=== PATIENT | female | born 2000 | race Caucasian/White ===

== ENCOUNTER 2020-11-21 19:04 | Emergency (ER) | payer OTHER, SELFPAY ==
[2020-11-21 19:14] VITALS: BP 119/74; PULSE 89; RESP 16; TEMP 36.9; O2SAT 99
--- NOTE | 2020-11-21 19:59 | ED.GENADULT ---
HPI - General Adult General Chief complaint: Nausea/Vomiting/Diarrhea Stated complaint: abd pain/diarrhea Time Seen by Provider: 11/21/20 19:59 Source: patient and RN notes reviewed Mode of arrival: ambulatory Limitations: no limitations History of Present Illness HPI narrative: 20-year-old female presents with complaints of body aches, fatigue, diarrhea, decreased appetite, intermittent abdominal pain and nausea for the past 14 days. ?Idania reports diarrhea episodes lasting longer today. No treatment. ?Idania reports she is currently being treated for Swamp ass, has 2 days left on Flagyl and Penicillin. ?Nausea and diarrhea without vomiting. ?Exacerbating factors consist of eating and drinking. ?LBM here at [facility] while waiting on evaluation without blood. ?Denies fever or chills. ?Denies headache, dizziness, back pain, dysuria, and blood in stool. ?Tolerating po intake well. ?LMP 11/19/2020. ?Remains active. ?The patient reports she has not been diagnosed with COVID-19. ?The patient reports she is not waiting for the results of a COVID-19 lab test. ?The patient reports she does not have a new or worsening cough or shortness of breath. ?The patient reports she does not have any rhinorrhea, congestion, loss of taste, and sore throat. ?Denies recent traveling. ?Denies concerns for COVID-19 or exposures. ?At this time, the patient is not suspected of having COVID-19. Some parts of this dictation were generated by voice recognition software and may contain typographical and/or grammatical inaccuracies. Related Data Home Medications Medication Instructions Recorded Confirmed escitalopram oxalate 10 mg PO DAILY 11/21/20 11/21/20 metronidazole 500 mg PO BID 11/21/20 11/21/20 penicillin V potassium 500 mg PO DAILY 11/21/20 11/21/20 Allergies Allergy/AdvReac Type Severity Reaction Status Date / Time No Known Allergies Allergy Unverified 01/13/17 14:34 Review of Systems Review of Systems: Narrative: CONSTITUTIONAL: Denies fever, chills, sweats. EYES: Denies visual changes, redness, discharge. ENT: Denies rhinorrhea, congestion, sore throat, otalgia. CARDIOVASCULAR: Denies chest pain, palpitations, edema. RESPIRATORY: Denies dyspnea, wheezing, cough. GASTROINTESTINAL: Denies vomiting. Complaints of diarrhea, nausea, and decreased appetite, intermittent abdominal pain. GENITOURINARY: Denies dysuria, hematuria, abnormal discharge. SKIN: Denies rash or itching. MUSCULOSKELETAL: Denies acute back pain, joint pain, or myalgia. NEUROLOGIC: Denies numbness or focal weakness. PSYCHIATRIC: Denies anxiety or depression. All systems reviewed & are unremarkable except as noted in HPI and below. [facility] Past Medical History Medical History (Updated 11/22/20 @ 00:01 by Leatha Baron) Anxiety Depression Obesity Surgical History Surgical History (Updated 11/21/20 @ 20:15 by HYACINTH Reynolds) No significant past surgical history Family History Family History (Updated 11/21/20 @ 20:15 by HYACINTH Reynolds) Father Cerebrovascular accident Mother , Motorcycle accident Unknown family medical history Social History Social History (Updated 11/21/20 @ 20:16 by HYACINTH Reynolds) Smoking status: Current every day smoker Tobacco type: e-cigarettes/vaping Second hand tobacco smoke exposure: Yes (significant other) Alcohol intake: current Substance use: current Substance use type: marijuana Living arrangements: with family Occupation/Education: occupation Gender identity (if verbalized by the patient): Female Sexual Orientation (if Verbalized by the Patient): Straight or Heterosexual Comments At time of signature, I have reviewed and agree with the nursing past medical, surgical, social, and family history. Please see the nursing chart for further information. There is no relevant family history pertinent to the presenting complaint. Exam Narrative: Exam Narrat
== END 2020-11-21 20:25 | disposition home or self-care (01) ==
PROVIDERS: Emergency Provider Nurse Practitioner Family
DX: R19.7 Diarrhea, unspecified (principal); R11.2 Nausea with vomiting, unspecified; T50.905A Adverse effect of unspecified drugs, medicaments and biological substances, initial encounter; F41.9 Anxiety disorder, unspecified; F32.9 Major depressive disorder, single episode, unspecified; E66.9 Obesity, unspecified; Z68.36 Body mass index [BMI] 36.0-36.9, adult
CPT/HCPCS: 81003; 99213; G0463

== ENCOUNTER 2021-09-20 16:57 | Emergency (ER) | payer OTHER, SELFPAY ==
--- NOTE | ~2021-09-20 | US_ITS ---
EXAMINATION: US OB <=14 wk fetus w TV DATE: 09/20/2021 21:03 INDICATION: Right-sided abdominal pain in . TECHNIQUE: Real-time transabdominal and transvaginal pelvic ultrasound was performed. COMPARISON: None. FINDINGS: TRANSABDOMINAL ULTRASOUND: The uterus measures 6.0 x 3.2 x 4.8 cm. TRANSVAGINAL ULTRASOUND: There is a cyst in the endometrial complex with mean diameter of 6 mm which may be a gestational sac with estimated gestational age of 5 weeks and 2 days +/- 3 days. No yolk sac or pole is identified. The right ovary measures 2.2 x 1.4 x 2.0 cm. The left ovary measures 2. 4 x 1.8 x 2.3 cm. There is no free fluid in the pelvis. IMPRESSION: 1. Cyst in the endometrial complex that may be a gestational sac with estimated date of delivery of 05/21/2022. Spontaneous and ectopic are not excluded. Serial beta hCGs are recommen ded. Reviewed, dictated and finalized at location A. IMPRESSION: 1. Cyst in the endometrial complex that may be a gestational sac with estimate d date of delivery of 05/21/2022. Spontaneous and ectopic are not excluded. Serial beta hCGs are recommended.
[2021-09-20 16:59] VITALS: BP 135/95; PULSE 105; RESP 18; TEMP 36.5; O2SAT 100
[2021-09-20 19:12] LABS: Basophils Absolute Auto 0.1 K/mm3 (0.0-0.1); Basophils Percent Auto 0.4 % (0.2-1.2); Eosinophils Absolute Auto 0.1 K/mm3 (0-0.3); Eosinophils Percent Auto 0.5 % (0-4.4); Hematocrit 44.8 % (37.0-47.0); Hemoglobin 14.9 g/dL (12.0-15.0); Immature Granulocyte Absolute 0.06 K/mm3 (0.00-0.031); Immature Granulocyte Percent A 0.4 % (0-0.5); Lymphocytes Absolute Auto 3.07 K/mm3 (0.9-3.2); Lymphocytes Percent Auto 22.4 % (18.3-44.2); Mean Corpuscular HGB Conc 33.3 g/dl (32-36); Mean Corpuscular Hemoglobin 31.2 pg (26-34); Mean Corpuscular Volume 93.9 fl (80-100); Monocytes Absolute Auto 0.9 K/mm3 (0.1-0.6); Monocytes Percent Auto 6.3 % (2.6-8.5); Neutrophils Absolute Auto 9.6 K/mm3 (1.3-6.7); Platelet Count Result 243 k/mm3 (150-375); Red Blood Count 4.77 M/mm3 (4.2-5.4); Red Cell Distribution Width 14.2 % (11.5-14.5); White Blood Count 13.7 K/mm3 (4.5-10.0)
[2021-09-20 19:13] LABS: Appearance Urine Clear (Clear); Bilirubin Urine Negative (Negative); Blood Urine Negative (Negative); Color Urine Yellow (Yellow); Glucose Urine UA Negative (Negative); Ketones Urine 1+ mg/dL (Negative); Leukocyte Esterase Ur Negative LEU/UL (Negative); Nitrate Urine Positive (Negative); Protein Urine Negative (Negative); Specific Grav Ur >= 1.030 (1.001-1.035); Urobilinogen Urine 0.2 mg/dL (<2.0); pH Urine 5.5 (5.0-9.0)
[2021-09-20 19:20] LABS: Bacteria Urine Trace /hpf; Mucus Urine Moderate /lpf; Squamous Epithelial Cell Urine Moderate /hpf (Few)
[2021-09-20 19:22] LABS: Alanine Aminotransferase 24 U/L (6-35); Albumin Level 4.6 g/dL (3.5-5.1); Alkaline Phosphatase 59 U/L (38-126); Anion Gap 7 mmol/L (8-16); Aspartate Amino Transferase 25 U/L (14-36); Bilirubin,Total 0.5 mg/dL (0.2-1.3); Blood Urea Nitrogen 11 mg/dL (7-17); Carbon Dioxide 25 mmol/L (22-30); Chloride 103 mmol/L (98-107); Estimated CRCL calculation 95 ml/min; Estimated Glomerular Filt Rate > 60; Glucose 81 mg/dL (65-110); Potassium 3.7 mmol/L (3.4-5.0); Sodium 135 mmol/L (137-145)
[2021-09-20 19:23] LABS: Add Urine Microscopic? YES
[2021-09-20] MEDS: LACTATED RINGERS 1,000 ML 999 ML IV CONT ×2 (19:30→19:31)
[2021-09-20] MEDS: ONDANSETRON INJ 4 MG/2 ML VIAL IV PUSH (19:31)
--- NOTE | 2021-09-20 19:36 | ED.NAVMDI ---
HPI - Nausea/Vomiting/Diarrhea General Chief complaint: Nausea/Vomiting/Diarrhea Stated complaint: N/V 10 WEEKS Time Seen by Provider: 09/20/21 18:27 Source: patient Mode of arrival: ambulatory History of Present Illness HPI Narrative: 21 year old female presents today with complaints of increased nausea over the last few days. Today she states she has not been able to keep anything down. She is 10 weeks and has not had an appointment with OB or an US to verify IUP. Patient has had some right sided abdominal cramping intermittently for the last week but denies vaginal bleeding. Related Data Home Medications Medication Instructions Recorded Confirmed escitalopram oxalate 10 mg PO DAILY 11/21/20 11/21/20 metronidazole 500 mg PO BID 11/21/20 11/21/20 penicillin V potassium 500 mg PO DAILY 11/21/20 11/21/20 Allergies Allergy/AdvReac Type Severity Reaction Status Date / Time No Known Allergies Allergy Unverified 01/13/17 14:34 Review of Systems Review of Systems: CONSTITUTIONAL: Denies fever, chills, or sweats. EYES: Denies visual changes, redness, or discharge. ENT: Denies rhinorrhea, congestion, sore throat, or otalgia. CARDIOVASCULAR: Denies chest pain, palpitations, or edema. RESPIRATORY: Denies cough or dyspnea. GASTROINTESTINAL: Nausea, vomiting, and intermittent right sided pelvic pain. Denies diarrhea. GENITOURINARY: Denies dysuria or hematuria. SKIN: Denies rash or itching. MUSCULOSKELETAL: Denies back pain, joint pain, or myalgia. NEUROLOGIC: Denies headache, numbness, dizziness, or weakness. PSYCHIATRIC: Denies anxiety or depression. [facility] Past Medical History Medical History (Updated 09/20/21 @ 22:34 by Christina Kelly APRN) Anxiety Depression Obesity Surgical History Surgical History (Updated 11/21/20 @ 20:15 by HYACINTH Reynolds) No significant past surgical history Family History Family History (Updated 11/21/20 @ 20:15 by HYACINTH Reynolds) Father Cerebrovascular accident Mother , Motorcycle accident Unknown family medical history Social History Social History (Updated 11/21/20 @ 20:16 by HYACINTH Reynolds) Smoking status: Current every day smoker Tobacco type: e-cigarettes/vaping Second hand tobacco smoke exposure: Yes (significant other) Alcohol intake: current Substance use: current Substance use type: marijuana Gender identity (if verbalized by the patient): Female Sexual Orientation (if Verbalized by the Patient): Straight or Heterosexual Exam Narrative: GENERAL: Well-appearing, well-nourished, and in no acute distress. HEAD: Normocephalic, atraumatic. EYES: PERRLA and EOMI. ENT: Nares clear, no rhinorrhea or epistaxis. Mucous membranes moist. Oropharynx without tonsillar hypertrophy exudate or other lesions. Bilateral TMs pearly nash nonbulging NECK: Supple. No adenopathy or masses. No carotid bruits or JVD CHEST: Clear to auscultation. No respiratory distress. No wheezes rales or rhonchi HEART: Regular rate and rhythm. No murmur heard. Normal peripheral pulses. ABDOMEN: Soft, nontender, nondistended, normal active bowel sounds. EXTREMITIES: Normal range of motion. No edema. SKIN: Warm, dry, no rash. NEURO: No focal deficits. Alert and oriented x3. PSYCH: Normal mood and affect. Course Reevaluation(s) Reevaluation #1: Patient without nausea and feeling much better. Lab results reviewed with patient aware ultrasound ordered. Date: 09/20/21 Time: 20:20 Vital Signs Vital signs: Vital Signs Temperature 36.5 C 09/20/21 16:59 Pulse Rate 105 H 09/20/21 16:59 Respiratory Rate 18 09/20/21 16:59 Blood Pressure 135/95 H 09/20/21 16:59 Pulse Oximetry 100 09/20/21 16:59 Temperature 36.5 C 09/20/21 16:59 Pulse Rate 105 H 09/20/21 16:59 Respiratory Rate 18 09/20/21 16:59 Blood Pressure 135/95 H 09/20/21 16:59 Pulse Oximetry 100 09/20/21 16:59 MDM - Nausea/Vom
[2021-09-20 23:29] VITALS: BP 125/67; PULSE 87; RESP 18; O2SAT 99
== END 2021-09-20 23:34 | disposition home or self-care (01) ==
PROVIDERS: Emergency Provider Nurse Practitioner Family
DX: O21.9 Vomiting of pregnancy, unspecified (principal); O23.91 Unspecified genitourinary tract infection in pregnancy, first trimester; O99.341 Other mental disorders complicating pregnancy, first trimester; F41.9 Anxiety disorder, unspecified; F32.A Depression, unspecified; O99.211 Obesity complicating pregnancy, first trimester; E66.9 Obesity, unspecified; O99.331 Smoking (tobacco) complicating pregnancy, first trimester; F17.290 Nicotine dependence, other tobacco product, uncomplicated; Z3A.01 Less than 8 weeks gestation of pregnancy
CPT/HCPCS: 36415; 76801; 76817; 80053; 81001; 84702; 85025; 86900; 86901; 96361; 96374; 99284; J2405; J7120

== ENCOUNTER 2021-09-23 08:04 | Outpatient (CLI) | payer OTHER, SELFPAY | END 2021-09-23 08:05 | disposition home or self-care (01) | LOC: ANHLAB 08:07 | PROVIDERS: Visit Provider Nurse Practitioner Family | DX: O20.0 Threatened abortion (principal) | CPT/HCPCS: 36415; 84702 ==

== ENCOUNTER 2021-11-15 08:53 | Emergency (ER) | payer OTHER, SELFPAY ==
--- NOTE | ~2021-11-15 | US_ITS ---
EXAMINATION: US OB <= 14 weeks fetus DATE: 11/15/2021 10:21 INDICATION: Vomiting and abdominal pain during first trimester TECHNIQUE: Real-time pelvic transabdominal ultrasound was performed. COMPARISON: 09/20/2021 FINDINGS: The uterus measures 12.5 x 8.0 x 7.3 cm. There is an intrauterine gestational sac. h eart motion is identified measuring 157 beats per minute (bpm) by M-mode Doppler. The crown rum p length measures 7.1 cm , which correlates with an estimated gestational age of 13 weeks and 2 day(s ) (+/-) 8 day(s). The right ovary measures 2.4 x 1.8 x 0.9 cm. The left ovary measures 2.9 x 1.7 x 1.5 cm. There is nor mal vascular flow in the ovaries. There is no free fluid in the pelvis. IMPRESSION: 1. Live intrauterine with an estimated gestational age of 13 weeks and 2 day(s) (+/-) 8 day (s) and an estimated delivery date of 05/21/2022. Reviewed, dictated and finalized at location B. IMPRESSION: 1. Live intrauterine with an estimated gestational age of 13 weeks an d 2 day(s) (+/-) 8 day(s) and an estimated delivery date of 05/21/2022.
[2021-11-15 09:06] VITALS: BP 122/67; PULSE 94; RESP 14; TEMP 36.9; O2SAT 97
[2021-11-15 09:23] LABS: Basophils Absolute Auto 0.1 K/mm3 (0.0-0.1); Basophils Percent Auto 0.3 % (0.2-1.2); Eosinophils Percent Auto 0.3 % (0-4.4); Hematocrit 39.1 % (37.0-47.0); Hemoglobin 14.1 g/dL (12.0-15.0); Immature Granulocyte Absolute 0.07 K/mm3 (0.00-0.031); Immature Granulocyte Percent A 0.5 % (0-0.5); Lymphocytes Absolute Auto 2.56 K/mm3 (0.9-3.2); Lymphocytes Percent Auto 17.7 % (18.3-44.2); Mean Corpuscular HGB Conc 36.1 g/dl (32-36); Mean Corpuscular Volume 88.9 fl (80-100); Mean Platelet Volume 10.3 fl (7.4-10.4); Monocytes Absolute Auto 0.6 K/mm3 (0.1-0.6); Monocytes Percent Auto 4.3 % (2.6-8.5); Neutrophils Absolute Auto 11.1 K/mm3 (1.3-6.7); Neutrophils Percent Auto 76.9 % (45.5-73.1); Platelet Count Result 212 k/mm3 (150-375); Red Cell Distribution Width 13.4 % (11.5-14.5); White Blood Count 14.5 K/mm3 (4.5-10.0)
[2021-11-15 09:28] LABS: Appearance Urine Slightly Cloudy (Clear); Bilirubin Urine Negative (Negative); Blood Urine Negative (Negative); Color Urine Yellow (Yellow); Glucose Urine UA Negative (Negative); Ketones Urine 2+ mg/dL (Negative); Leukocyte Esterase Ur Trace LEU/UL (Negative); Nitrate Urine Negative (Negative); Protein Urine Negative (Negative); Urobilinogen Urine 0.2 mg/dL (<2.0); pH Urine 6.5 (5.0-9.0)
[2021-11-15 09:35] LABS: Bacteria Urine Trace /hpf; Mucus Urine Rare /lpf; Squamous Epithelial Cell Urine Many /hpf (Few); WBC Urine 16-20 /hpf
[2021-11-15 09:37] LABS: Alanine Aminotransferase 13 U/L (6-35); Albumin Level 3.9 g/dL (3.5-5.1); Alkaline Phosphatase 60 U/L (38-126); Anion Gap 7 mmol/L (8-16); Aspartate Amino Transferase 23 U/L (14-36); Bilirubin,Total 0.3 mg/dL (0.2-1.3); Blood Urea Nitrogen 7 mg/dL (7-17); Calcium 8.9 mg/dL (8.4-10.2); Carbon Dioxide 22 mmol/L (22-30); Chloride 105 mmol/L (98-107); Estimated CRCL calculation 129 ml/min; Estimated Glomerular Filt Rate > 60; Glucose 85 mg/dL (65-110); Lipase 25 U/L (23-300); Potassium 3.8 mmol/L (3.4-5.0); Sodium 134 mmol/L (137-145)
[2021-11-15 09:38] LABS: Add Urine Microscopic? YES
[2021-11-15] MEDS: SODIUM CHLORIDE 0.9% IV 1,000 ML 999 ML IV CONT (09:59)
--- NOTE | 2021-11-15 10:05 | ED.NAVMDI ---
HPI - Nausea/Vomiting/Diarrhea General Chief complaint: Nausea/Vomiting/Diarrhea <Marisel Mosley PA-C - Last Filed: 11/15/21 12:04> Stated complaint: 12 weeks /vomiting <WENDI Quezada Last Filed: 11/15/21 12:04> Time Seen by Provider: 11/15/21 09:11 <WENDI Quezada Last Filed: 11/15/21 12:04> Source: patient <WENDI Quezada Last Filed: 11/15/21 12:04> Mode of arrival: ambulatory <WENDI Quezada Last Filed: 11/15/21 12:04> Limitations: no limitations <WENDI Quezada Last Filed: 11/15/21 12:04> History of Present Illness HPI Narrative: This is a 21 year old , about 13 weeks that presents to the emergency department for nausea and vomiting. Reports she has been having a lot of trouble with nausea and vomiting this . It has worsened over the last couple of days. She has intermittently been having some sharp pain in the right lower quadrant that last very briefly. Denies fever, dysuria, hematuria, or vaginal bleeding. <WENDI Quezada Last Filed: 11/15/21 12:04> Related Data Home medications: Home Medications Medication Instructions Recorded Confirmed escitalopram oxalate 10 mg tablet 10 mg PO DAILY 11/21/20 11/21/20 metronidazole 500 mg tablet 500 mg PO BID 11/21/20 11/21/20 penicillin V potassium 500 mg 500 mg PO DAILY 11/21/20 11/21/20 tablet <WENDI Quezada Last Filed: 11/15/21 12:04> Allergies/Adverse reactions: Allergies Allergy/AdvReac Type Severity Reaction Status Date / Time No Known Allergies Allergy Verified 11/15/21 09:09 <WENDI Quezada Last Filed: 11/15/21 12:04> Review of Systems Review of Systems: CONSTITUTIONAL: Denies fever GASTROINTESTINAL: Reports abdominal pain, nausea, vomiting. Denies diarrhea. GENITOURINARY: Denies dysuria or hematuria. <Marisel Mosley PA-C - Last Filed: 11/15/21 12:04> All systems reviewed & are unremarkable except as noted in HPI and below <Marisel Mosley PA-C - Last Filed: 11/15/21 12:04> PMFSH Past Medical History Medical History: Medical History (Updated 11/15/21 @ 12:01 by Marisel Mosley PA-C) Anxiety Depression Obesity <Marisel Mosley PA-C - Last Filed: 11/15/21 12:04> Surgical History Surgical History: Surgical History (Updated 11/21/20 @ 20:15 by HYACINTH Reynolds) No significant past surgical history <Marisel Mosley PA-C - Last Filed: 11/15/21 12:04> Family History Family History: Family History (Updated 11/21/20 @ 20:15 by HYACINTH Reynolds) Father Cerebrovascular accident Mother , Motorcycle accident Unknown family medical history <Marisel Mosley PA-C - Last Filed: 11/15/21 12:04> Social History Social History: Social History (Updated 11/15/21 @ 10:05 by Marisel Mosley PA-C) Smoking status: Former smoker Alcohol intake: former Substance use: former Gender identity (if verbalized by the patient): Female Sexual Orientation (if Verbalized by the Patient): Straight or Heterosexual <Marisel Mosley PA-C - Last Filed: 11/15/21 12:04> Exam Narrative: GENERAL: Well-appearing, well-nourished, and in no acute distress. HEAD: Normocephalic, atraumatic. EYES: EOMI. CHEST: Clear to auscultation. No respiratory distress. No wheezes rales or rhonchi HEART: Regular rate and rhythm. No murmur heard. Normal peripheral pulses. ABDOMEN: Soft, nontender, nondistended, normal active bowel sounds. EXTREMITIES: Normal range of motion. No edema. SKIN: Warm, dry, no rash. NEURO: No focal deficits. Alert and oriented x3. PSYCH: Normal mood and affect <Marisel Mosley PA-C - Last Filed: 11/15/21 12:04> Course MOBILE APPLICATION TESTER/PA Physician Supervision For this encounter, I have reviewed the THOMAS documentation, treatment plan and medical decision making: I was available for consultation as needed. [] <Tyrell Leger DO -
[2021-11-15] MEDS: ONDANSETRON INJ 4 MG/2 ML VIAL IV PUSH (10:11)
[2021-11-15 10:47] LABS: Pregnancy On Board Control Positive; Urine Pregnancy Test Positive
== END 2021-11-15 12:00 | disposition home or self-care (01) ==
PROVIDERS: Physician Assistant; Emergency Provider Emergency Medicine
DX: O21.9 Vomiting of pregnancy, unspecified (principal); O99.341 Other mental disorders complicating pregnancy, first trimester; F41.9 Anxiety disorder, unspecified; F32.A Depression, unspecified; O99.211 Obesity complicating pregnancy, first trimester; E66.9 Obesity, unspecified; Z3A.13 13 weeks gestation of pregnancy; Z87.891 Personal history of nicotine dependence
CPT/HCPCS: 36415; 76801; 80053; 81001; 81025; 83690; 84702; 85025; 87077; 87086; 87088; 87186; 96361; 96365; 96375; 99284; J0131; J2405; J7030

== ENCOUNTER 2022-01-12 19:05 | Emergency (ER) | payer OTHER, SELFPAY ==
[2022-01-12 19:08] VITALS: BP 112/72; PULSE 89; RESP 16; TEMP 36.4; O2SAT 100
[2022-01-12] MEDS: ONDANSETRON INJ 4 MG/2 ML VIAL IV PUSH (19:36)
[2022-01-12] MEDS: SODIUM CHLORIDE 0.9% IV 1,000 ML 999 ML IV CONT (19:36)
[2022-01-12 19:40] LABS: Hematocrit 42.2 % (37.0-47.0); Hemoglobin 13.4 g/dL (12.0-15.0); Mean Corpuscular HGB Conc 31.8 g/dl (32-36); Mean Corpuscular Hemoglobin 32.1 pg (26-34); Mean Platelet Volume 10.5 fl (7.4-10.4); Platelet Count Result 191 k/mm3 (150-375); Red Blood Count 4.18 M/mm3 (4.2-5.4); Red Cell Distribution Width 14.1 % (11.5-14.5); White Blood Count 22.4 K/mm3 (4.5-10.0)
--- NOTE | 2022-01-12 19:44 | ED.NAVMDI ---
HPI - Nausea/Vomiting/Diarrhea General Chief complaint: Nausea/Vomiting/Diarrhea Stated complaint: anxiety/vomiting, 21 weeks preg Time Seen by Provider: 01/12/22 19:19 History of Present Illness HPI Narrative: 21-year-old female who is 21 weeks presents the emergency room complaints of nausea and vomiting for the last 3 hours. Patient states that she was unable to take her Zofran due to throwing it up. Denies abdominal pain. Denies fever. Denies any diarrhea or constipation. Related Data Home Medications Medication Instructions Recorded Confirmed escitalopram oxalate 10 mg tablet 10 mg PO DAILY 11/21/20 11/21/20 metronidazole 500 mg tablet 500 mg PO BID 11/21/20 11/21/20 penicillin V potassium 500 mg 500 mg PO DAILY 11/21/20 11/21/20 tablet Allergies Allergy/AdvReac Type Severity Reaction Status Date / Time No Known Allergies Allergy Verified 01/12/22 19:13 Review of Systems Review of Systems: CONSTITUTIONAL: Denies fever, chills, or sweats. EYES: Denies visual changes, redness, or discharge. ENT: Denies rhinorrhea, congestion, sore throat, or otalgia. CARDIOVASCULAR: Denies chest pain, palpitations, or edema. RESPIRATORY: Denies cough or dyspnea. GASTROINTESTINAL: Reports nausea and vomiting GENITOURINARY: Denies dysuria or hematuria. SKIN: Denies rash or itching. MUSCULOSKELETAL: Denies back pain, joint pain, or myalgia. NEUROLOGIC: Denies headache, numbness, dizziness, or weakness. PSYCHIATRIC: Denies anxiety or depression. [facility] Past Medical History Medical History Anxiety Depression Obesity Surgical History Surgical History No significant past surgical history Family History Family History Father Cerebrovascular accident Mother , Motorcycle accident Unknown family medical history Social History Social History Smoking status: Former smoker Alcohol intake: former Substance use: former Gender identity (if verbalized by the patient): Female Sexual Orientation (if Verbalized by the Patient): Straight or Heterosexual Exam Narrative: GENERAL: Well-appearing, well-nourished, no physical limitations, and in no acute distress. HEAD: Normocephalic, atraumatic. EYES: Conjunctivae normal, PERRLA and EOMI. CHEST: Clear to auscultation. No respiratory distress. No wheezes rales or rhonchi. No tenderness. HEART: Regular rate and rhythm. No murmur heard. Normal peripheral pulses. ABDOMEN: Soft, nontender, nondistended, normal active bowel sounds. EXTREMITIES: Normal range of motion. No edema. No clubbing or cyanosis SKIN: Warm, dry, no rash. No noted wounds NEURO: No focal deficits. Alert and oriented x3. MAEW. CN's II-XI intact bilaterally, normal gait PSYCH: Cooperative. Normal mood and affect. Course Vital Signs Vital signs: Vital Signs Temperature 36.4 C 01/12/22 19:08 Pulse Rate 89 01/12/22 19:08 Respiratory Rate 16 01/12/22 19:08 Blood Pressure 112/72 01/12/22 19:08 Pulse Oximetry 100 01/12/22 19:08 Oxygen Delivery Room Air 01/12/22 19:08 Temperature 36.4 C 01/12/22 19:08 Pulse Rate 90 01/12/22 21:25 Respiratory Rate 17 01/12/22 21:25 Blood Pressure 115/73 01/12/22 21:25 Pulse Oximetry 97 01/12/22 21:25 Oxygen Delivery Room Air 01/12/22 19:08 MDM - Nausea/Vomiting/Diarrhea Lab Data Result diagrams: 01/12/22 19:35 01/12/22 19:35 Labs: Lab Results 01/12/22 01/12/22 01/12/22 Range/Units 19:35 19:35 20:33 WBC 22.4 H (4.5-10.0) K/mm3 RBC 4.18 L (4.2-5.4) M/mm3 Hgb 13.4 (12.0-15.0) g/dL Hct 42.2 (37.0-47.0) % MCV 101.0 H (80-100) fl MCH 32.1 (26-34) pg MCHC 31.8 L (32-36) g/dl RDW 14.1 (11.5-14.5) % P
[2022-01-12 19:58] LABS: Alanine Aminotransferase 13 U/L (6-35); Albumin Level 3.9 g/dL (3.5-5.1); Alkaline Phosphatase 70 U/L (38-126); Anion Gap 11 mmol/L (8-16); Aspartate Amino Transferase 27 U/L (14-36); Bilirubin,Total 0.6 mg/dL (0.2-1.3); Blood Urea Nitrogen 5 mg/dL (7-17); Calcium 9.2 mg/dL (8.4-10.2); Carbon Dioxide 16 mmol/L (22-30); Chloride 107 mmol/L (98-107); Estimated CRCL calculation 147 ml/min; Estimated Glomerular Filt Rate > 60; Glucose 89 mg/dL (65-110); Lipase 33 U/L (23-300); Potassium 4.8 mmol/L (3.4-5.0); Sodium 134 mmol/L (137-145)
[2022-01-12 20:02] LABS: Band Neutrophils Percent 1 % (0-6); Lymphocytes Absolute Manual 3.13 K/mm3 (1.1-4.5); Monocytes Absolute Manual 0.67 K/mm3 (0.1-0.90); Monocytes Percent Manual 3 % (3-9); Neutrophils Absolute Manual 18.59 K/mm3 (1.7-7.2); Neutrophils Percent Manual 82 % (46-73); Platelet Estimate Adequate (Adequate); Total Cells Counted 100
[2022-01-12 20:40] LABS: Appearance Urine Clear (Clear); Bilirubin Urine 1+ (Negative); Blood Urine Negative (Negative); Color Urine Yellow (Yellow); Glucose Urine UA Negative (Negative); Ketones Urine 4+ mg/dL (Negative); Leukocyte Esterase Ur Negative LEU/UL (Negative); Nitrate Urine Negative (Negative); Protein Urine Trace mg/dL (Negative); Specific Grav Ur >= 1.030 (1.001-1.035); Urobilinogen Urine 0.2 mg/dL (<2.0); pH Urine 5.5 (5.0-9.0)
[2022-01-12 20:59] LABS: Add Urine Microscopic? YES; RBC Urine 0-2 /hpf (0-2)
[2022-01-12 21:00] LABS: Squamous Epithelial Cell Urine Moderate /hpf (Few); WBC Urine 16-20 /hpf
[2022-01-12] MEDS: ACETAMINOPHEN 500 MG TABLET 1000 MG PO (21:23)
[2022-01-12 21:25] VITALS: BP 115/73; PULSE 90; RESP 17; O2SAT 97
== END 2022-01-12 21:58 | disposition home or self-care (01) ==
PROVIDERS: Emergency Provider Nurse Practitioner Family; PCP Advanced Practice Midwife
DX: O21.0 Mild hyperemesis gravidarum (principal); Z3A.21 21 weeks gestation of pregnancy
CPT/HCPCS: 36415; 80053; 81001; 83690; 85025; 87086; 87088; 96361; 96374; 99284; A9270; J2405; J7030

== ENCOUNTER 2022-01-29 17:38 | Emergency (ER) | payer OTHER, SELFPAY ==
--- NOTE | ~2022-01-29 | XR_ITS ---
EXAMINATION: XR chest 1V Exam Date/Time: 01/29/2022 18:20 CDT HISTORY: cp, productive cough Comparison: None available. RESULT: Lines, tubes, and devices: None. Lungs and pleura: Clear. Cardiomediastinal silhouette: Normal. Other: No acute osseous or upper abdominal finding. IMPRESSION: No acute cardiopulmonary process. Reviewed, dictated and finalized at location K.
[2022-01-29 17:40] VITALS: BP 115/78; PULSE 106; RESP 16; TEMP 36.4; O2SAT 100
--- NOTE | 2022-01-29 18:06 | ECG_ITS ---
Measurements Intervals [place] Rate: 90 P: 24 [place]: 134 QRS: 38 QRSD: 81 T: 19 QT: 339 QTc: 415 Interpretive Statements SINUS RHYTHM WITH SINUS ARRHYTHMIA NORMAL ECG NO PREVIOUS ECG AVAILABLE FOR COMPARISON Electronically Signed On 01-29-2022 20:18:17 CDT by Guero Perez D.O.
--- NOTE | 2022-01-29 18:07 | ED.URI ---
HPI - URI/Sore Throat General Chief Complaint: Upper Respiratory Infection Stated Complaint: URI Time Seen by Provider: 01/29/22 17:44 Source: patient Mode of arrival: ambulatory Limitations: no limitations History of Present Illness HPI Narrative: This is a 21-year-old , about 23 weeks , that presents to the emergency department for cold symptoms present over the last couple of days. Reports cough, congestion, and sore throat. Reports she has chest pain while coughing. She is seen at urgent care and sent here for further evaluation. She had a negative strep and COVID swab at that time. Denies fever or shortness of breath. Related Data Home Medications Medication Instructions Recorded Confirmed escitalopram oxalate 10 mg tablet 10 mg PO DAILY 11/21/20 11/21/20 metronidazole 500 mg tablet 500 mg PO BID 11/21/20 11/21/20 penicillin V potassium 500 mg 500 mg PO DAILY 11/21/20 11/21/20 tablet Allergies Allergy/AdvReac Type Severity Reaction Status Date / Time No Known Allergies Allergy Verified 01/12/22 19:13 Review of Systems Review of Systems: CONSTITUTIONAL: Denies fever CARDIOVASCULAR: Reports chest pain. Denies edema. RESPIRATORY: Reports cough. Denies dyspnea. All systems reviewed & are unremarkable except as noted in HPI and below PMFSH Past Medical History Medical History Anxiety Depression Obesity Surgical History Surgical History No significant past surgical history Family History Family History Father Cerebrovascular accident Mother , Motorcycle accident Unknown family medical history Social History Social History Smoking status: Former smoker Alcohol intake: former Substance use: former Gender identity (if verbalized by the patient): Female Sexual Orientation (if Verbalized by the Patient): Straight or Heterosexual Exam Narrative: GENERAL: Well-appearing, well-nourished, and in no acute distress. HEAD: Normocephalic, atraumatic. EYES: EOMI. ENT: Nares clear, no rhinorrhea or epistaxis. Mucous membranes moist. Oropharynx without tonsillar hypertrophy exudate or other lesions. Bilateral TMs pearly nash non-bulging NECK: Supple. No adenopathy or masses. CHEST: Clear to auscultation. No respiratory distress. No wheezes rales or rhonchi HEART: Regular rate and rhythm. No murmur heard. Normal peripheral pulses. EXTREMITIES: Normal range of motion. No edema. SKIN: Warm, dry, no rash. NEURO: No focal deficits. Alert and oriented x3. PSYCH: Normal mood and affect Course Vital Signs Vital signs: Vital Signs Temperature 97.6 F 01/29/22 17:40 Pulse Rate 106 H 01/29/22 17:40 Respiratory Rate 16 01/29/22 17:40 Blood Pressure 115/78 01/29/22 17:40 Pulse Oximetry 100 01/29/22 17:40 Oxygen Delivery Room Air 01/29/22 17:40 Temperature 97.6 F 01/29/22 17:40 Pulse Rate 98 01/29/22 20:31 Respiratory Rate 16 01/29/22 20:31 Blood Pressure 118/76 01/29/22 20:31 Pulse Oximetry 100 01/29/22 20:31 Oxygen Delivery Room Air 01/29/22 17:40 MDM - URI/Sore Throat MDM Narrative Medical decision making narrative: Patient presents to the emergency department for cold symptoms present over the last couple of days. Patient is afebrile and nontoxic-appearing. Mildly tachycardic upon arrival, this normalized without intervention. Oxygen saturation has remained normal on room air. She reported some chest pain, largely while she coughs. CBC is with leukocytosis to 15.8, likely due to current . She is not having any current related concerns. Metabolic panel without concerning findings. EKG without concerning changes and her baseline troponin is negative. Patient had strep and CO
[2022-01-29 18:24] LABS: Basophils Absolute Auto 0.1 K/mm3 (0.0-0.1); Basophils Percent Auto 0.4 % (0.2-1.2); Eosinophils Absolute Auto 0.1 K/mm3 (0-0.3); Eosinophils Percent Auto 0.7 % (0-4.4); Hematocrit 36.2 % (37.0-47.0); Hemoglobin 12.2 g/dL (12.0-15.0); Immature Granulocyte Absolute 0.19 K/mm3 (0.00-0.031); Immature Granulocyte Percent A 1.2 % (0-0.5); Lymphocytes Absolute Auto 2.05 K/mm3 (0.9-3.2); Mean Corpuscular HGB Conc 33.7 g/dl (32-36); Mean Corpuscular Hemoglobin 31.9 pg (26-34); Mean Corpuscular Volume 94.5 fl (80-100); Mean Platelet Volume 10.3 fl (7.4-10.4); Monocytes Absolute Auto 0.9 K/mm3 (0.1-0.6); Monocytes Percent Auto 5.4 % (2.6-8.5); Neutrophils Absolute Auto 12.6 K/mm3 (1.3-6.7); Neutrophils Percent Auto 79.3 % (45.5-73.1); Platelet Count Result 211 k/mm3 (150-375); Red Blood Count 3.83 M/mm3 (4.2-5.4); Red Cell Distribution Width 13.9 % (11.5-14.5); White Blood Count 15.8 K/mm3 (4.5-10.0)
[2022-01-29 18:36] LABS: Prothrombin Time 12.9 Seconds (11.1-14.7)
[2022-01-29 18:37] LABS: Partial Thromboplastin Time 26.5 SECONDS (22.3-36.8)
[2022-01-29 18:42] LABS: Alanine Aminotransferase 34 U/L (6-35); Albumin Level 3.6 g/dL (3.5-5.1); Alkaline Phosphatase 78 U/L (38-126); Anion Gap 9 mmol/L (8-16); Aspartate Amino Transferase 29 U/L (14-36); Bilirubin,Total 0.2 mg/dL (0.2-1.3); Blood Urea Nitrogen 8 mg/dL (7-17); Calcium 8.7 mg/dL (8.4-10.2); Carbon Dioxide 21 mmol/L (22-30); Chloride 104 mmol/L (98-107); Estimated CRCL calculation 128 ml/min; Estimated Glomerular Filt Rate > 60; Glucose 98 mg/dL (65-110); Potassium 3.6 mmol/L (3.4-5.0); Sodium 134 mmol/L (137-145)
[2022-01-29 18:53] LABS: Troponin I < 0.012 ng/mL (0.000-0.034)
[2022-01-29 20:31] VITALS: BP 118/76; PULSE 98; RESP 16; O2SAT 100
== END 2022-01-29 20:33 | disposition home or self-care (01) ==
PROVIDERS: Physician Assistant; Emergency Provider Emergency Medicine; PCP Advanced Practice Midwife
DX: J06.9 Acute upper respiratory infection, unspecified (principal); Z87.891 Personal history of nicotine dependence; E66.9 Obesity, unspecified; Z68.35 Body mass index [BMI] 35.0-35.9, adult; F41.9 Anxiety disorder, unspecified; F32.A Depression, unspecified
CPT/HCPCS: 36415; 71045; 80053; 84484; 85025; 85610; 85730; 87804; 93005; 96365; 99284; J0131

== ENCOUNTER 2022-02-06 13:52 | Outpatient (CLI) | payer OTHER, SELFPAY ==
[2022-02-06] MEDS: ACETAMINOPHEN/BUTALBITAL/CAFFEINE 325-50-40 MG TABLET (FIORICET) 1 TAB PO (14:16)
[2022-02-06 14:31] VITALS: BP 100/64; PULSE 85
[2022-02-06 15:10] LABS: Appearance Urine Cloudy (Clear); Basophils Absolute Auto 0.1 K/mm3 (0.0-0.1); Basophils Percent Auto 0.4 % (0.2-1.2); Bilirubin Urine 1+ (Negative); Blood Urine Negative (Negative); Color Urine Yellow (Yellow); Eosinophils Absolute Auto 0.1 K/mm3 (0-0.3); Eosinophils Percent Auto 0.3 % (0-4.4); Glucose Urine UA Negative (Negative); Hematocrit 37.2 % (37.0-47.0); Hemoglobin 12.6 g/dL (12.0-15.0); Immature Granulocyte Absolute 0.43 K/mm3 (0.00-0.031); Immature Granulocyte Percent A 2.4 % (0-0.5); Ketones Urine Negative (Negative); Leukocyte Esterase Ur Negative LEU/UL (NEGATIVE); Lymphocytes Absolute Auto 2.63 K/mm3 (0.9-3.2); Lymphocytes Percent Auto 14.6 % (18.3-44.2); Mean Corpuscular HGB Conc 33.9 g/dl (32-36); Mean Corpuscular Hemoglobin 32.2 pg (26-34); Mean Corpuscular Volume 95.1 fl (80-100); Mean Platelet Volume 10.2 fl (7.4-10.4); Monocytes Absolute Auto 0.9 K/mm3 (0.1-0.6); Neutrophils Absolute Auto 13.9 K/mm3 (1.3-6.7); Neutrophils Percent Auto 77.3 % (45.5-73.1); Nitrate Urine Negative (Negative); Platelet Count Result 194 k/mm3 (150-375); Protein Urine Negative (Negative); Red Blood Count 3.91 M/mm3 (4.2-5.4); Red Cell Distribution Width 14.2 % (11.5-14.5); Specific Grav Ur 1.025 (1.001-1.035); Urobilinogen Urine 0.2 mg/dL (<2.0)
[2022-02-06 15:14] LABS: Bacteria Urine Trace /hpf; Mucus Urine Moderate /lpf; Squamous Epithelial Cell Urine Many /hpf (Few)
[2022-02-06 15:18] LABS: Add Urine Microscopic? NO
[2022-02-06 15:20] LABS: Alanine Aminotransferase 21 U/L (6-35); Albumin Level 3.7 g/dL (3.5-5.1); Alkaline Phosphatase 72 U/L (38-126); Anion Gap 11 mmol/L (8-16); Aspartate Amino Transferase 20 U/L (14-36); Bilirubin,Total 0.2 mg/dL (0.2-1.3); Blood Urea Nitrogen 6 mg/dL (7-17); Calcium 9.1 mg/dL (8.4-10.2); Carbon Dioxide 25 mmol/L (22-30); Chloride 101 mmol/L (98-107); Estimated Glomerular Filt Rate > 60; Glucose 78 mg/dL (65-110); Potassium 3.7 mmol/L (3.4-5.0); Sodium 137 mmol/L (137-145); Uric Acid 4.3 mg/dL (2.5-7.5)
[2022-02-06 15:28] VITALS: BP 96/52; PULSE 66
[2022-02-06 15:30] VITALS: BP 93/54; PULSE 77
[2022-02-06 15:42] LABS: Creatinine Urine 165.7 mg/dL; Total Protein Urine Random 9 mg/dL; Ur Ttl Prot Creatinine Ratio 0.05 mg/mg (0-0.20)
[2022-02-06 17:06] VITALS: BP 96/58
== END 2022-02-06 17:00 | disposition home or self-care (01) ==
LOC: ANHOBOP 13:56 → ANHOBPP 13:56
PROVIDERS: Visit Provider Advanced Practice Midwife
DX: Z3A.25 25 weeks gestation of pregnancy (principal)
CPT/HCPCS: 36415; 59025; 80053; 81003; 82570; 84156; 84550; 85025; 87086; 87088; 99199; A9270

== ENCOUNTER 2022-02-08 11:30 | Emergency (ER) | payer OTHER, SELFPAY ==
[2022-02-08 11:42] VITALS: BP 104/78; PULSE 100; RESP 18; TEMP 36.9; O2SAT 99
--- NOTE | 2022-02-08 11:55 | ED.GENADULT ---
HPI - General Adult General Chief complaint: Unspecified Stated complaint: Blood in stool, vomiting, 25 weeks Time Seen by Provider: 02/08/22 11:53 History of Present Illness HPI narrative: This is a 21-year-old female @25weeks presenting to the ED with chief complaint Blood in her vomit and stool during . Patient has had nausea and vomiting throughout her . When she vomited earlier today she had streaks of mucousy blood in her vomit. She denies any abdominal pain. Patient also says that she had some blood mixed into her stool. She notes that she has been very constipated lately. Patient denies any dizziness or lightheadedness. She denies blood thinners. Patient states she still feels the baby moving. denies any vaginal bleeding. She denies any urinary symptoms or vaginal discharge. Related Data Home Medications Medication Instructions Recorded Confirmed escitalopram oxalate 10 mg tablet 10 mg PO DAILY 11/21/20 11/21/20 metronidazole 500 mg tablet 500 mg PO BID 11/21/20 11/21/20 penicillin V potassium 500 mg 500 mg PO DAILY 11/21/20 11/21/20 tablet Allergies Allergy/AdvReac Type Severity Reaction Status Date / Time No Known Allergies Allergy Verified 02/08/22 11:48 PMFSH Past Medical History Medical History Anxiety Depression Obesity Surgical History Surgical History No significant past surgical history Family History Family History Father Cerebrovascular accident Mother , Motorcycle accident Unknown family medical history Social History Social History Smoking status: Former smoker Alcohol intake: former Substance use: former Gender identity (if verbalized by the patient): Female Sexual Orientation (if Verbalized by the Patient): Straight or Heterosexual Exam Narrative: APPEARANCE: No apparent distress. Head atraumatic. EYES: PERRLA/EOMI, NOSE: Normal no drainage NECK: Supple, Trachea midline RESPIRATORY: CTAB, No increased work of breathing. CARDIOVASCULAR: S1S2 appreciated ABDOMINAL: Soft, nontender, nondistended, No guarding rebound Rectal: External skin tags, no evidence of fissures or external hemorrhoids. No gross blood on digital exam. MUSCULOSKELETAl: No obvious deformities NEURO: Alert. Moving 4/4 extremities SKIN:: Warm, dry. Normal color PSYCHIATRIC: Normal affect Course Vital Signs Vital signs: Vital Signs Temperature 98.4 F 02/08/22 11:42 Pulse Rate 100 02/08/22 11:42 Respiratory Rate 18 02/08/22 11:42 Blood Pressure 104/78 02/08/22 11:42 Pulse Oximetry 99 02/08/22 11:42 Oxygen Delivery Room Air 02/08/22 11:42 Temperature 98.4 F 02/08/22 11:42 Pulse Rate 100 02/08/22 11:42 Respiratory Rate 18 02/08/22 11:42 Blood Pressure 104/78 02/08/22 11:42 Pulse Oximetry 99 02/08/22 11:42 Oxygen Delivery Room Air 02/08/22 11:42 Medical Decision Making MDM Narrative Medical decision making narrative: This 21-year-old female presenting in ED with 2 complaints. First is streaks of blood in her vomit. Patient has had persistent nausea and vomiting throughout her . Streaks of blood are likely Allie-Saldaña tears. SARs the patient's rectal bleeding. She has been very constipated as of late. Most likely is a bleed from internal hemorrhoids. Her digital rectal exam was unremarkable. Cbc showed hemoglobin of 12.7. White blood cell count was elevated 16.5 but there are no signs of infection at this point. Urinalysis was obtained which had 4-6 WBCs however had a large amount of squamous epithelium son the patient has no urinary symptoms at this time. Nitrates were negative. Patient be discharged home with stool softeners. She has
[2022-02-08 12:29] LABS: Basophils Absolute Auto 0.1 K/mm3 (0.0-0.1); Basophils Percent Auto 0.3 % (0.2-1.2); Eosinophils Absolute Auto 0.1 K/mm3 (0-0.3); Eosinophils Percent Auto 0.3 % (0-4.4); Hematocrit 36.9 % (37.0-47.0); Hemoglobin 12.7 g/dL (12.0-15.0); Immature Granulocyte Absolute 0.25 K/mm3 (0.00-0.031); Immature Granulocyte Percent A 1.5 % (0-0.5); Lymphocytes Absolute Auto 2.09 K/mm3 (0.9-3.2); Lymphocytes Percent Auto 12.7 % (18.3-44.2); Mean Corpuscular HGB Conc 34.4 g/dl (32-36); Mean Corpuscular Hemoglobin 32.7 pg (26-34); Mean Corpuscular Volume 95.1 fl (80-100); Monocytes Absolute Auto 0.7 K/mm3 (0.1-0.6); Monocytes Percent Auto 3.9 % (2.6-8.5); Neutrophils Absolute Auto 13.4 K/mm3 (1.3-6.7); Neutrophils Percent Auto 81.3 % (45.5-73.1); Platelet Count Result 199 k/mm3 (150-375); Red Blood Count 3.88 M/mm3 (4.2-5.4); White Blood Count 16.5 K/mm3 (4.5-10.0)
[2022-02-08 12:39] LABS: Alanine Aminotransferase 23 U/L (6-35); Albumin Level 3.7 g/dL (3.5-5.1); Alkaline Phosphatase 79 U/L (38-126); Anion Gap 6 mmol/L (8-16); Aspartate Amino Transferase 22 U/L (14-36); Bilirubin,Total 0.3 mg/dL (0.2-1.3); Blood Urea Nitrogen 5 mg/dL (7-17); Calcium 8.8 mg/dL (8.4-10.2); Carbon Dioxide 25 mmol/L (22-30); Chloride 102 mmol/L (98-107); Estimated CRCL calculation 128 ml/min; Estimated Glomerular Filt Rate > 60; Glucose 93 mg/dL (65-110); Lipase 27 U/L (23-300); Potassium 3.4 mmol/L (3.4-5.0); Sodium 133 mmol/L (137-145)
[2022-02-08 13:36] LABS: Appearance Urine Slightly Cloudy (Clear); Bilirubin Urine Negative (Negative); Blood Urine Negative (Negative); Color Urine Yellow (Yellow); Glucose Urine UA Negative (Negative); Ketones Urine Negative (Negative); Leukocyte Esterase Ur 1+ LEU/UL (Negative); Nitrate Urine Negative (Negative); Protein Urine Negative (Negative); Specific Grav Ur 1.015 (1.001-1.035); Urobilinogen Urine 0.2 mg/dL (<2.0); pH Urine 7.5 (5.0-9.0)
[2022-02-08 13:39] LABS: Add Urine Microscopic? YES
[2022-02-08 13:56] LABS: Bacteria Urine Trace /hpf; Mucus Urine Rare /lpf; RBC Urine 0-2 /hpf (0-2); Squamous Epithelial Cell Urine Many /hpf (Few)
--- NOTE | 2022-02-12 19:55 | ED.GENADULT ---
HPI - General Adult General Chief complaint: Unspecified Stated complaint: Blood in stool, vomiting, 25 weeks Time Seen by Provider: 02/08/22 11:53 Related Data Home Medications Medication Instructions Recorded Confirmed escitalopram oxalate 10 mg tablet 10 mg PO DAILY 11/21/20 11/21/20 metronidazole 500 mg tablet 500 mg PO BID 11/21/20 11/21/20 penicillin V potassium 500 mg 500 mg PO DAILY 11/21/20 11/21/20 tablet Allergies Allergy/AdvReac Type Severity Reaction Status Date / Time No Known Allergies Allergy Verified 02/08/22 11:48 Review of Systems Review of Systems: CONSTITUTIONAL: Denies night sweats. EYES: No eye pain ENT: Denies rhinorrhea CARDIOVASCULAR: Denies palpitations RESPIRATORY: Denies hemoptysis GASTROINTESTINAL:admits hematemesis GENITOURINARY: Denies hematuria. SKIN: Denies rash MUSCULOSKELETAL: Denies myalgia. NEUROLOGIC: Denies weakness. PSYCHIATRIC: Denies delusions PMFSH Past Medical History Medical History Anxiety Depression Obesity Surgical History Surgical History No significant past surgical history Family History Family History Father Cerebrovascular accident Mother , Motorcycle accident Unknown family medical history Social History Social History Smoking status: Former smoker Alcohol intake: former Substance use: former Gender identity (if verbalized by the patient): Female Sexual Orientation (if Verbalized by the Patient): Straight or Heterosexual Course Vital Signs Vital signs: Vital Signs Temperature 98.4 F 02/08/22 11:42 Pulse Rate 100 02/08/22 11:42 Respiratory Rate 18 02/08/22 11:42 Blood Pressure 104/78 02/08/22 11:42 Pulse Oximetry 99 02/08/22 11:42 Oxygen Delivery Room Air 02/08/22 11:42 Temperature 98.4 F 02/08/22 11:42 Pulse Rate 100 02/08/22 11:42 Respiratory Rate 18 02/08/22 11:42 Blood Pressure 104/78 02/08/22 11:42 Pulse Oximetry 99 02/08/22 11:42 Oxygen Delivery Room Air 02/08/22 11:42 Medical Decision Making Vital Signs Vital Signs: Vital Signs Temperature 98.4 F 02/08/22 11:42 Pulse Rate 100 02/08/22 11:42 Respiratory Rate 18 02/08/22 11:42 Blood Pressure 104/78 02/08/22 11:42 Pulse Oximetry 99 02/08/22 11:42 Oxygen Delivery Room Air 02/08/22 11:42 Temperature 98.4 F 02/08/22 11:42 Pulse Rate 100 02/08/22 11:42 Respiratory Rate 18 02/08/22 11:42 Blood Pressure 104/78 02/08/22 11:42 Pulse Oximetry 99 02/08/22 11:42 Oxygen Delivery Room Air 02/08/22 11:42 Lab Data Result diagrams: 02/08/22 12:24 02/08/22 12:24 Labs: Lab Results 02/08/22 02/08/22 02/08/22 Range/Units 12:24 12:24 13:04 WBC 16.5 H (4.5-10.0) K/mm3 RBC 3.88 L (4.2-5.4) M/mm3 Hgb 12.7 (12.0-15.0) g/dL Hct 36.9 L (37.0-47.0) % MCV 95.1 (80-100) fl MCH 32.7 (26-34) pg MCHC 34.4 (32-36) g/dl RDW 14.0 (11.5-14.5) % Plt Count 199 (150-375) k/mm3 MPV 10.0 (7.4-10.4) fl Immature Gran % (Auto) 1.5 H (0-0.5) % Neut % (Auto) 81.3 H (45.5-73.1) % Lymph % (Auto) 12.7 L (18.3-44.2) % [place] % (Auto) 3.9 (2.6-8.5) % Eos % (Auto) 0.3 (0-4.4) % Baso % (Auto) 0.3 (0.2-1.2) % Lymph # (Auto) 2.09 (0.9-3.2) K/mm3 [place] # (Auto) 0.7 H (0.1-0.6) K/mm3 Eos # (Auto) 0.1 (0-0.3) K/mm3 Baso # (Auto) 0.1 (0.0-0.1) K/mm3 Abs Immat Gran (auto) 0.25 H (0.00-0.031) K/mm3 Absolute Neuts (auto) 13.4 H (1.3-6.7) K/mm3 Absolute Nucleated RBC 0.0 (0.0-0.012) K/mm3 Nucleated RBC % 0.0 (0.0-0.2) % Sodium 133 L (137-145) mmol/L Potassium 3.4 (3.4-5.0) mmol/L Chloride 102 (98-107) mmol/L
== END 2022-02-08 14:40 | disposition home or self-care (01) ==
PROVIDERS: Emergency Provider Emergency Medicine; PCP Advanced Practice Midwife
DX: O21.9 Vomiting of pregnancy, unspecified (principal); O22.42 Hemorrhoids in pregnancy, second trimester; O99.342 Other mental disorders complicating pregnancy, second trimester; F41.9 Anxiety disorder, unspecified; F32.A Depression, unspecified; O99.212 Obesity complicating pregnancy, second trimester; E66.9 Obesity, unspecified; Z3A.25 25 weeks gestation of pregnancy; Z87.891 Personal history of nicotine dependence
CPT/HCPCS: 36415; 80053; 81001; 83690; 85025; 99283

== ENCOUNTER 2022-03-28 18:38 | Observation (INO) | payer OTHER, SELFPAY ==
--- NOTE | 2022-03-28 18:38 | OBADM ---
This patient, Idania Medina, admitted to the OB room OB Post 117 for observation. Patient/family oriented to hospital policies and general routines including ID bracelet, bed and alarms, visiting hours, pain management, procedures, bathroom and other care routines, personal items, smoking policy, room service/diet, and visiting hours. Patient/Family are encouraged to report perceived risks to care and to ask questions if they do not understand what they are told or what they should do.
[2022-03-28 18:50] VITALS: BMI 35.4
--- NOTE | 2022-03-28 18:50 | PC.NURSE ---
Patient states she has been having N/V throughout the day and has not been able to tolerate water or PO food. She reports pelvic pain that is worse on the right side. She states the pain is worse with movement. Patient reports active movement. Patient denies any vaginal discharge or bleeding.
[2022-03-28 19:00] VITALS: BP 99/66; PULSE 96
[2022-03-28 19:15] VITALS: BP 100/65; PULSE 101
--- NOTE | 2022-03-28 19:15 | PC.NURSE ---
Patient states that she is no longer having the pelvic pain that she had at home.
[2022-03-28 19:21] LABS: Appearance Urine Clear (Clear); Bilirubin Urine Negative (Negative); Blood Urine Negative (Negative); Color Urine Yellow (Yellow); Glucose Urine UA Negative (Negative); Ketones Urine Trace mg/dL (Negative); Leukocyte Esterase Ur Negative LEU/UL (Negative); Nitrate Urine Negative (Negative); Protein Urine Negative (Negative); Urobilinogen Urine 0.2 mg/dL (<2.0)
--- NOTE | 2022-03-28 19:23 | PC.NURSE ---
Notified Dr. Packer of UA results. Orders given for IV placement, D5LR bolus [id number] and 4mg Zofran IV push. Continuous TOCO until discharge, FHT may be removed. Patient may be discharged to home following IV fluid bolus.
[2022-03-28 19:24] LABS: Add Urine Microscopic? YES; Bacteria Urine Trace /hpf; Mucus Urine Rare /lpf; Squamous Epithelial Cell Urine Few /hpf (Few)
[2022-03-28] MEDS: ONDANSETRON INJ 4 MG/2 ML VIAL IV PUSH (19:40)
[2022-03-28] MEDS: DEXTROSE 5%/LACTATED RINGERS 1,000 ML 999 ML IV CONT (19:41)
--- NOTE | 2022-03-28 21:00 | PC.NURSE ---
Patient states that pelvic pain has resolved following IV fluid bolus and she states her nausea has resolved. Patient reports she is tolerating water and crackers without nausea or emesis. Discharge instructions reviewed with patient. Patient states understanding and denies questions.
--- NOTE | 2022-04-20 19:10 | PM.OBTRLD ---
OB - Triage/Final Diagnosis Visit Information Comments/Additional reasons for admission: I have assessed the risk for this patient, Idania Medina, and determined that she would benefit from observation care. Evaluation Laboratory results: Laboratory Tests 03/28/22 19:15 Urine Color Yellow Urine Appearance Clear Urine pH 7.0 Ur Specific [place] 1.020 Urine Protein Negative Urine Glucose (UA) Negative Urine Ketones Trace Ur Blood (Man) Negative Urine Nitrate Negative Urine Bilirubin Negative Urine Urobilinogen 0.2 Leukocyte Esterase Rfl Negative Urine RBC 3-5 H Urine WBC 4-6 H Ur Squamous Epith Cells Few Urine Bacteria Trace Urine Mucus Rare Final Diagnosis (1) Rectal pain: Code(s): K62.89 - Other specified diseases of anus and rectum Status: Acute
== END 2022-03-28 21:05 | disposition home or self-care (01) ==
PROVIDERS: Admitting Provider Obstetrics & Gynecology; PCP Advanced Practice Midwife; Visit Provider Obstetrics & Gynecology
DX: O99.613 Diseases of the digestive system complicating pregnancy, third trimester (principal); K62.89 Other specified diseases of anus and rectum; Z3A.33 33 weeks gestation of pregnancy
CPT/HCPCS: 59025; 81001; 96361; 96374; G0378; G0379; J2405; J7121

== ENCOUNTER 2022-04-09 06:52 | Outpatient (RCR) | payer OTHER, SELFPAY ==
--- NOTE | ~2022-04-09 | US_ITS ---
EXAMINATION: US OB BPP wo non-stress DATE: 04/09/2022 08:22 INDICATION: Decreased movement. Third trimester. TECHNIQUE: Real-time pelvic ultrasound was performed. COMPARISON: Ultrasound 11/15/2021 FINDINGS: There is a single living fetus in vertex presentation. The placenta is posterior. heart rate i s 142 beats per minute (bpm). Biophysical profile performed by the technologist: breathing (30 sec sustained breathing in 30 minutes): 2 out of 2 movement (3 gross body movements in 30 minutes): 2 out of 2 tone (one episode of iebaeve-jbvrlulio-hbmoxdh limb movement): 2 out of 2 Amniotic fluid pocket (2 cm): 2 out of 2 Total score: 8 out of 8 IMPRESSION: 1. Single living fetus in vertex presentation. 2. Biophysical profile 8 out of 8. Reviewed, dictated and finalized at location A. [facility]
[2022-04-09 08:05] VITALS: BP 104/71; PULSE 96
--- NOTE | 2022-04-09 08:20 | PC.NURSE ---
BPP 12/16.
== END 2022-07-08 23:59 | disposition home or self-care (01) ==
LOC: ANHOBOP 06:52
PROVIDERS: PCP Advanced Practice Midwife; Visit Provider Obstetrics & Gynecology
DX: O36.8130 Decreased fetal movements, third trimester, not applicable or unspecified (principal); Z3A.34 34 weeks gestation of pregnancy
CPT/HCPCS: 59025; 76819

== ENCOUNTER 2022-04-09 06:52 | Outpatient (RCR) | payer OTHER, SELFPAY ==
[2022-03-09] MEDS: RHO(D) IMMUNE GLOBULIN 300 MCG/2 ML SYRINGE IM (15:45)
== END 2022-06-05 23:59 | disposition home or self-care (01) ==
LOC: ANHOBOP 06:52
PROVIDERS: PCP Advanced Practice Midwife; Visit Provider Advanced Practice Midwife
DX: Z29.13 Encounter for prophylactic Rho(D) immune globulin (principal); O36.0190 Maternal care for anti-D [Rh] antibodies, unspecified trimester, not applicable or unspecified; Z3A.00 Weeks of gestation of pregnancy not specified
CPT/HCPCS: 36415; 85461; 86850; 86900; 86901; 90384; 96372; J2790

== ENCOUNTER 2022-04-16 11:55 | Observation (INO) | payer OTHER, SELFPAY ==
[2022-04-16] VITALS (45 sets, daily range): BP systolic 86–119; BP diastolic 45–81; PULSE 112–141; RESP 22; TEMP 37.1; O2SAT 94–100
--- NOTE | ~2022-04-16 | US_ITS ---
EXAMINATION: US OB BPP wo non-stress DATE: 04/16/2022 15:49 INDICATION: Flu a positive and abdominal pain during third trimester TECHNIQUE: Real-time pelvic ultrasound was performed. The interpreting radiologist was not present fo r the study. COMPARISON: 04/09/2022 FINDINGS: There is a single living fetus in vertex presentation. The placenta is posterior. heart rate is 134 beats per minute (bpm). Biophysical profile performed by the technologist: breathing (30 sec sustained breathing in 30 minutes): 2 out of 2 movement (3 gross body movements in 30 minutes): 2 out of 2 tone (one episode of smzvxek-ylymjkezv-bxlkjxt limb movement): 2 out of 2 Amniotic fluid pocket (2 cm): 2 out of 2 Total score: 8 out of 8 IMPRESSION: 1. Single living fetus in vertex presentation. 2. Biophysical profile 8 out of 8. Reviewed, dictated and finalized at location A. [facility]
--- NOTE | 2022-04-16 12:24 | PC.NURSE ---
1217- Spoke with Ken Hawthorne CNM, patient symptoms and vitals discussed. Orders to complete an NST and take patient to ED for further evaluation of symptoms.
--- NOTE | 2022-04-16 12:26 | OBADM ---
This patient, Idania Medina, admitted to the OB room OB Post 116 for observation. Patient/family oriented to hospital policies and general routines including ID bracelet, bed and alarms, visiting hours, pain management, procedures, bathroom and other care routines, personal items, smoking policy, room service/diet, and visiting hours. Patient/Family are encouraged to report perceived risks to care and to ask questions if they do not understand what they are told or what they should do.
[2022-04-16 13:20] LABS: Hematocrit 36.9 % (37.0-47.0); Hemoglobin 12.9 g/dL (12.0-15.0); Mean Corpuscular Hemoglobin 32.3 pg (26-34); Mean Corpuscular Volume 92.5 fl (80-100); Mean Platelet Volume 10.7 fl (7.4-10.4); Platelet Count Result 185 k/mm3 (150-375); Red Blood Count 3.99 M/mm3 (4.2-5.4); Red Cell Distribution Width 13.6 % (11.5-14.5)
[2022-04-16 13:20] LABS: Appearance Urine Slightly Cloudy (Clear); Bilirubin Urine 1+ (Negative); Blood Urine Negative (Negative); Color Urine Yellow (Yellow); Glucose Urine UA Negative (Negative); Ketones Urine 4+ mg/dL (Negative); Leukocyte Esterase Ur Trace LEU/UL (Negative); Nitrate Urine Negative (Negative); Protein Urine Trace mg/dL (Negative); Urobilinogen Urine 0.2 mg/dL (<2.0)
[2022-04-16] MEDS: FAMOTIDINE 20 MG/2 ML VIAL IV PUSH (13:20)
[2022-04-16] MEDS: LACTATED RINGERS 1,000 ML 999 ML IV CONT (13:20)
[2022-04-16] MEDS: ONDANSETRON INJ 4 MG/2 ML VIAL IV PUSH (13:25)
[2022-04-16 13:30] LABS: Alanine Aminotransferase 25 U/L (6-35); Albumin Level 3.8 g/dL (3.5-5.1); Alkaline Phosphatase 161 U/L (38-126); Amylase 68 U/L (30-110); Anion Gap 9 mmol/L (8-16); Aspartate Amino Transferase 34 U/L (14-36); Bilirubin,Total 0.6 mg/dL (0.2-1.3); Blood Urea Nitrogen 7 mg/dL (7-17); Calcium 8.7 mg/dL (8.4-10.2); Carbon Dioxide 20 mmol/L (22-30); Chloride 104 mmol/L (98-107); Estimated Glomerular Filt Rate > 60; Glucose 86 mg/dL (65-110); Lipase 38 U/L (23-300); Potassium 4.1 mmol/L (3.4-5.0); Sodium 133 mmol/L (137-145)
[2022-04-16 13:56] LABS: Influenza A QL RT-PCR Positive (Negative); Influenza B QL RT-PCR Negative (Negative); SARS-CoV-2 RNA PCR Negative
[2022-04-16 14:05] LABS: Bacteria Urine Trace /hpf; Mucus Urine Rare /lpf; Squamous Epithelial Cell Urine Many /hpf (Few)
[2022-04-16] MEDS: DEXTROSE 5%/LACTATED RINGERS 1,000 ML 999 ML IV CONT (14:05)
[2022-04-16 14:13] LABS: Add Urine Microscopic? YES
--- NOTE | 2022-04-16 16:20 | PC.NURSE ---
1610- Spoke with Ken Hawthorne CNM, BPP 12/16, nst reactive and patient requesting to go home. Orders to discharge with precautions.
--- NOTE | 2022-04-18 07:28 | P.PNOB_ITS ---
OB - Triage/Final Diagnosis Visit Information Date of evaluation: 04/16/22 Reason for evaluation: threatened labor Comments/Additional reasons for admission: I have assessed the risk for this patient, Idania Medina, and determined that she would benefit from observation care. Evaluation Laboratory results: Laboratory Tests 04/16/22 04/16/22 04/16/22 12:59 12:59 12:59 WBC 15.0 H RBC 3.99 L Hgb 12.9 Hct 36.9 L MCV 92.5 MCH 32.3 MCHC 35.0 RDW 13.6 Plt Count 185 MPV 10.7 H Sodium 133 L Potassium 4.1 Chloride 104 Carbon Dioxide 20 L Anion Gap 9 BUN 7 Creatinine 0.60 L Estim Creat Clear Calc Not Reportable Estimated GFR > 60 Glucose 86 Calcium 8.7 Total Bilirubin 0.6 AST 34 ALT 25 Alkaline Phosphatase 161 H Total Protein 7.0 Albumin 3.8 Amylase 68 Lipase 38 Urine Color Urine Appearance Urine pH Ur Specific [place] Urine Protein Urine Glucose (UA) Urine Ketones Ur Blood (Man) Urine Nitrate Urine Bilirubin Urine Urobilinogen Leukocyte Esterase Rfl Urine RBC Urine WBC Ur Squamous Epith Cells Urine Bacteria Urine Mucus Influenza A (RT-PCR) Positive Influenza B (RT-PCR) Negative SARS-CoV-2 RNA (RT-PCR) Negative 04/16/22 13:06 WBC RBC Hgb Hct MCV MCH MCHC RDW Plt Count MPV Sodium Potassium Chloride Carbon Dioxide Anion Gap BUN Creatinine Estim Creat Clear Calc Estimated GFR Glucose Calcium Total Bilirubin AST ALT Alkaline Phosphatase Total Protein Albumin Amylase Lipase Urine Color Yellow Urine Appearance Slightly cloudy Urine pH 6.0 Ur Specific [place] 1.020 Urine Protein Trace Urine Glucose (UA) Negative Urine Ketones 4+ H Ur Blood (Man) Negative Urine Nitrate Negative Urine Bilirubin 1+ H Urine Urobilinogen 0.2 Leukocyte Esterase Rfl Trace H Urine RBC 3-5 H Urine WBC 7-9 H Ur Squamous Epith Cells Many H Urine Bacteria Trace Urine Mucus Rare Influenza A (RT-PCR) Influenza B (RT-PCR) SARS-CoV-2 RNA (RT-PCR)
== END 2022-04-16 16:26 | disposition home or self-care (01) ==
PROVIDERS: Advanced Practice Midwife; Admitting Provider Obstetrics & Gynecology; Visit Provider Obstetrics & Gynecology
DX: O47.03 False labor before 37 completed weeks of gestation, third trimester (principal); O26.893 Other specified pregnancy related conditions, third trimester; Z20.822 Contact with and (suspected) exposure to COVID-19; Z3A.35 35 weeks gestation of pregnancy
CPT/HCPCS: 36415; 76819; 80053; 81001; 82150; 83690; 85027; 87086; 87636; 96365; 96375; G0378; G0379; J0131; J2405; J7120; J7121

== ENCOUNTER 2022-04-24 21:48 | Observation (INO) | payer OTHER, SELFPAY ==
[2022-04-24 22:10] VITALS: BP 111/75; PULSE 105
--- NOTE | 2022-04-24 22:10 | PC.NURSE ---
Pt reports DFM. Pt states she has felt baby move about 10-12 times today. Pt also reposrts she feels off. Pt unable to describe any specific symptoms with feeling off. Pt significant other reports she seem confused but not like she has dementia, just that she wasn't paying as much attention while driving. Pt is Aand Ox4 with no weakness, COLON, or blurred vision. Pt has hx of seizures but has not had one in 7 years. Pt reports she feels off before having seizures but this is not the same. Pt reports Vaginal bleeding last evening. Pt states it was only once when she wiped and has not had any since. Pt reports for the past week the bottom of her hands and feet have been itchy.
[2022-04-24 22:15] VITALS: BP 110/71; PULSE 91
[2022-04-24 22:30] VITALS: BP 108/74; PULSE 97; RESP 16; TEMP 36.2
[2022-04-24 22:45] VITALS: BP 105/67; PULSE 98
[2022-04-24 23:00] VITALS: BP 105/69; PULSE 99
--- NOTE | 2022-04-24 23:05 | PC.NURSE ---
Pt reports of DFM discussed with Dr. Packer. FHR is reactive and this was discussed with Dr. Packer. Pt reports of feeling off including confusion discussed with Dr. Packer. Pt hx of seizures discussed. Vaginal bleeding last evening in one occurrence and now resolved discussed. Hand and feet intchingx1 week discussed. Orders to draw a Bile acid received to to discharge patient home with instructions to call in the morning.
[2022-04-24 23:15] VITALS: BP 94/57; PULSE 95
[2022-05-01 18:22] LABS: Chenodeoxycholic Acid 1.5 umol/L (< OR = 3.9); Cholic Acid 3.7 umol/L (< OR = 2.8); Deoxycholic Acid 0.6 umol/L (< OR = 2.3); Total Bile Acids 5.8 umol/L (< OR = 8.3)
--- NOTE | 2022-05-18 20:41 | PM.OBTRLD ---
OB - Triage/Final Diagnosis Visit Information Comments/Additional reasons for admission: I have assessed the risk for this patient, Idania Medina, and determined that she would benefit from observation care. Evaluation Laboratory results: Laboratory Tests 04/24/22 23:18 Cholic Acid 3.7 H Deoxycholic Acid 0.6 Chenodeoxycholic Acid 1.5 Total Bile Acids 5.8 Final Diagnosis (1) Decreased movement: Code(s): O36.8190 - Decreased movements, unspecified trimester, not applicable or unspecified Status: Acute
== END 2022-04-24 23:50 | disposition home or self-care (01) ==
PROVIDERS: Admitting Provider Obstetrics & Gynecology; Visit Provider Obstetrics & Gynecology
DX: O36.8190 Decreased fetal movements, unspecified trimester, not applicable or unspecified (principal); Z3A.00 Weeks of gestation of pregnancy not specified
CPT/HCPCS: 36415; 82542; G0378; G0379

== ENCOUNTER 2022-04-28 00:31 | Outpatient (RCR) | payer OTHER, SELFPAY ==
[2022-04-28 01:05] VITALS: BP 113/78; PULSE 105
== END 2022-05-09 13:31 | disposition home or self-care (01) ==
LOC: ANHOBOP 00:31
PROVIDERS: Visit Provider Obstetrics & Gynecology
DX: O36.8130 Decreased fetal movements, third trimester, not applicable or unspecified (principal); Z3A.36 36 weeks gestation of pregnancy
CPT/HCPCS: 59025

== ENCOUNTER 2022-04-30 00:01 | Inpatient (IN) | payer OTHER, SELFPAY ==
[2022-04-30] VITALS (91 sets, daily range): BP systolic 66–128; BP diastolic 23–98; PULSE 75–201; TEMP 36.1–37; O2SAT 93–100; BMI 37.5
--- NOTE | 2022-04-30 00:23 | LDADM ---
This patient, Idania Medina, was admitted to Labor/Delivery/Recovery 106 on 04/30/22 at 00:01. Plans for labor, pain management and were discussed with patient. Patient/family oriented to hospital policies and general routines including ID bracelet, bed and alarms, visiting hours, pain management, procedures, bathroom and other care routines, personal items, smoking policy, room service/diet and guest tray routines, security routines, and visiting hours. Patient/Family are encouraged to report perceived risks to care and to ask questions if they do not understand what they are told or what they should do. See OBIX for further documentation.
[2022-04-30 00:57] LABS: Basophils Absolute Auto 0.1 K/mm3 (0.0-0.1); Basophils Percent Auto 0.3 % (0.2-1.2); Eosinophils Absolute Auto 0.1 K/mm3 (0-0.3); Eosinophils Percent Auto 0.3 % (0-4.4); Hematocrit 36.2 % (37.0-47.0); Hemoglobin 12.3 g/dL (12.0-15.0); Immature Granulocyte Percent A 1.1 % (0-0.5); Lymphocytes Absolute Auto 3.43 K/mm3 (0.9-3.2); Lymphocytes Percent Auto 19.6 % (18.3-44.2); Mean Corpuscular Hemoglobin 31.1 pg (26-34); Mean Corpuscular Volume 91.4 fl (80-100); Mean Platelet Volume 10.2 fl (7.4-10.4); Monocytes Absolute Auto 1.4 K/mm3 (0.1-0.6); Monocytes Percent Auto 7.9 % (2.6-8.5); Neutrophils Absolute Auto 12.4 K/mm3 (1.3-6.7); Neutrophils Percent Auto 70.8 % (45.5-73.1); Platelet Count Result 257 k/mm3 (150-375); Red Blood Count 3.96 M/mm3 (4.2-5.4); Red Cell Distribution Width 13.4 % (11.5-14.5); White Blood Count 17.5 K/mm3 (4.5-10.0)
[2022-04-30] MEDS: DINOPROSTONE 10 MG VAG INSERT VAGINAL (01:06)
--- NOTE | 2022-04-30 07:38 | P.HP_ITS ---
Obstetrics - Admit Note Admission Note: record reviewed. No pertinent additions to the history and/or any subsequent changes in the physical findings that are not consistent with the expected course of the were found. IOL, suspected cholestastis, pruritius of entire body but mainly soles of feet, ursadiol not helping sy mptoms, cervadil anticipate vaginal delivery Additions to the history and/or subsequent changes in the physical findings follow. None.
[2022-04-30] MEDS: miSOPROStol 25 MCG TABLET VAGINAL (14:42)
[2022-04-30 15:50] LABS: Rapid Plasma Reagin Non-Reactive (NonReactive)
--- NOTE | 2022-04-30 18:29 | PM.OBPNLAB ---
Pain Control Date/time seen: 04/30/22 18:29 sve 280/-2 arom small amount of clear odorless fluid, anticipate vaginal delivery
[2022-04-30] MEDS: OXYTOCIN 30 UNITS/NS 500 ML 30 UNITS/500 ML BAG IV CONT (19:16)
[2022-04-30] MEDS: LACTATED RINGERS 1,000 ML 125 ML IV CONT (19:17)
--- NOTE | 2022-04-30 19:33 | WPDANESEPP ---
Anes - Eval Pre Procedure Procedure: Labor Epidural Date/Time: 04/30/22 19:33 Surgeon: Birdie Preop Diagnosis: Pain c contractions Pre Op Diagnosis: IOL Patient Data Age: 22 Gender: F Height: 1.57 m Weight: 93 kg Last Vital Signs Temp 36.2 C L 04/30/22 14:43 Pulse 87 04/30/22 17:15 BP 112/82 04/30/22 17:15 O2 Del Method Room Air 04/30/22 00:21 Allergies Allergy/AdvReac Type Severity Reaction Status Date / Time No Known Allergies Allergy Verified 04/28/22 01:21 Home Medications Medication Instructions Recorded Confirmed Type bupropion HCl 150 mg tablet,12 hr 150 mg PO DAILY 04/16/22 04/30/22 History sustained-release escitalopram oxalate 10 mg tablet 10 mg PO DAILY 04/16/22 04/30/22 History diphenhydramine HCl 50 mg/30 mL 50 mg PO HS PRN Sleep 04/28/22 04/28/22 History oral liquid ondansetron 4 mg disintegrating 4 mg PO Q6H PRN Sleep 04/28/22 04/28/22 History tablet prenat.vits,edilson,zdg-umam-dmmfg 1 tablet PO DAILY 04/28/22 04/28/22 History ursodiol 300 mg capsule 300 mg PO BID 04/28/22 04/28/22 History Laboratory Tests 04/30/22 04/30/22 04/30/22 00:33 00:33 00:33 WBC 17.5 K/mm3 H K/mm3 (4.5-10.0) RBC 3.96 M/mm3 L M/mm3 (4.2-5.4) Hgb 12.3 g/dL g/dL (12.0-15.0) Hct 36.2 % L % (37.0-47.0) MCV 91.4 fl fl (80-100) MCH 31.1 pg pg (26-34) MCHC 34.0 g/dl g/dl (32-36) RDW 13.4 % % (11.5-14.5) Plt Count 257 k/mm3 k/mm3 (150-375) MPV 10.2 fl fl (7.4-10.4) Immature Gran % (Auto) 1.1 % H % (0-0.5) Neut % (Auto) 70.8 % % (45.5-73.1) Lymph % (Auto) 19.6 % % (18.3-44.2) [place] % (Auto) 7.9 % % (2.6-8.5) Eos % (Auto) 0.3 % % (0-4.4) Baso % (Auto) 0.3 % % (0.2-1.2) Lymph # (Auto) 3.43 K/mm3 H K/mm3 (0.9-3.2) [place] # (Auto) 1.4 K/mm3 H K/mm3 (0.1-0.6) Eos # (Auto) 0.1 K/mm3 K/mm3 (0-0.3) Baso # (Auto) 0.1 K/mm3 K/mm3 (0.0-0.1) Abs Immat Gran (auto) 0.20 K/mm3 H K/mm3 (0.00-0.031) Absolute Neuts (auto) 12.4 K/mm3 H K/mm3 (1.3-6.7) Absolute Nucleated RBC 0.0 K/mm3 K/mm3 (0.0-0.012) Nucleated RBC % 0.0 % % (0.0-0.2) RPR Non-reactive (NonReactive) Blood Type O Negative Antibody Screen Positive Antibody Identification Inconclusive Antigen Identification Cancelled CAITLYN, IgG Interpret Not Performed CAITLYN, Poly Interpret Neg CAITLYN, Complement Interp Not Performed Patient hx anesthesia problems: none Family hx anesthesia problems: none Results Review: All pre-operative results and documents have been reviewed as part of the pre-operative evaluation. [facility] Past Medical History Medical History (Updated 04/30/22 @ 21:57 by Neftali Freitas CRNA) Anxiety Depression Epilepsy Obesity Surgical History Surgical History No significant past surgical history Family History Family History Father Cerebrovascular accident Mother , Motorcycle accident Unknown family medical history Social History Social History Smoking status: Former smoker Tobacco type: e-cigarettes/vaping Second hand tobacco smoke exposure: No Smoking end date: 09/27/21 Alcohol intake: former Substance use: never Lack of Transportation: No Lack of Food: Never True Current Housing: I Have Housing Concerned About Future Housing: No Difficulty Paying Gas/Electric Bills: No Difficulty Paying for Meds: No Currently Unemployed: YES Education: High School Diploma/GED Difficulty w/ Childcare or Family Care: No Gender identity (if viv
[2022-04-30] MEDS: ONDANSETRON INJ 4 MG/2 ML VIAL IV PUSH (20:46)
--- NOTE | 2022-04-30 21:58 | WPDANESEPN ---
Anes - Epidural Procedure Note Date/Time: 04/30/22 21:58 Consent: I have discussed with the patient/family/POA, the placement of an epidural catheter and the use of epidural narcotic/local anesthetic for labor analgesia and/or postoperative pain management, including associated potential risks, benefits, complications and side effects. I have discussed alternative methods of labor analgesia and/or postoperative pain management. The patient/family/POA, understand(s) and wish(es) to proceed with epidural narcotic/local anesthetic for labor analgesia and/or postoperative pain management. Time-Out: A pre-procedural Time-Out was completed immediately before starting the procedure and confirmed: Patient Identification, Site, Procedure, Patient Position and the Availability of Requisite Equipment. Clinical Indications: Pain c contractions Epidural Insertion Note Patient position: sitting Skin prep: chlorhexidine and sterile drape Needle: 18g Tuohy-Schliff Catheter: 20g Unstyleted Technique: Loss of resistance. Level of insertion: L3/4 Catheter skin linda (cm): 7 Length in epidural space (cm): 12 Skin anesthesia: lidocaine 1% Test dose: 1.5% Lidocaine with [id number] Epi, negative for subarachnoid Inj and negative for intravascular Inj Time of test dose: 21:43 Observations: tolerated well and parasthesia (L hip, resolved) Complications: none
[2022-05-01] VITALS (100 sets, daily range): BP systolic 93–131; BP diastolic 58–86; PULSE 75–143; RESP 16–20; TEMP 36.6–37.3; O2SAT 96–100
--- NOTE | 2022-05-01 05:58 | PM.OBPRVD ---
OB - Delivery Note Procedure Delivery date: 05/01/22 Procedure: vaginal delivery Events: Other (cholestasis) Induction method: AROM, Per Misoprostol Protocol, Per Pitocin Protocol and Per Cervidil Protocol Delivery monitor: External FHT, External Uterine and Internal Uterine Laceration Description: None Specimen: Yes Quantitative Blood Loss (ml): 85 Anesthesia type: Epidural Disposition: Floor Baby Date of : 05/01/22 Time of : 05:47 Weeks of gestation at delivery: 37 Infant gender: Female Weight (pounds): 5 Weight (ounces): 9 presentation: vertex position: Right Occiput Anterior Placenta delivery description: Spontaneous Cord Vessel Description: 3 Vessels, Nuchal Cord, Loose, Clamped/Cut and Delayed Cord Clamping score one minute: 8 score ten minutes: 9 Narrative: mother and baby skin to skin in stable condition
[2022-05-01] MEDS: OXYTOCIN 30 UNITS/NS 500 ML 30 UNITS/500 ML BAG 125 UNITS IV CONT (06:39)
[2022-05-01] MEDS: IBUPROFEN 600 MG TABLET PO ×2 (09:12→17:05)
--- NOTE | 2022-05-01 09:15 | PC.NURSE ---
Patient transferred to post room #276 via wheelchair. Support person present. Oriented to unit, room, information board, rooming in, admission packet and security measures. Patient verbalizes understanding.
[2022-05-01] MEDS: buPROPion HCL SR (12 HR) 150 MG TAB PO (10:27)
[2022-05-01] MEDS: ESCITALOPRAM OXALATE 10 MG TABLET PO (10:27)
[2022-05-01] MEDS: ursodioL 300 MG CAPSULE PO ×2 (10:27→17:05)
[2022-05-01] MEDS: MULTIVIT/MIN/PREN/FOL AC/IRON TABLET 1 TAB PO (10:27)
[2022-05-01] MEDS: DOCUSATE SODIUM 100 MG CAPSULE PO (17:05)
[2022-05-01] MEDS: LANOLIN (LANSINOH) 7.5 GM CREAM 1 APPLIC TOPICAL (17:06)
[2022-05-01] MEDS: ACETAMINOPHEN 325 MG TABLET 650 MG PO (19:49)
[2022-05-02] VITALS: BP 105/72; PULSE 83; RESP 18; TEMP 36.9; O2SAT 98
[2022-05-02 04:17] VITALS: BP 112/68; PULSE 87; RESP 20; TEMP 36.4; O2SAT 100
[2022-05-02] MEDS: IBUPROFEN 600 MG TABLET PO (04:45)
[2022-05-02 05:31] LABS: Hematocrit 32.8 % (37.0-47.0); Hemoglobin 11.1 g/dL (12.0-15.0)
--- NOTE | 2022-05-02 07:27 | WPDANLDPN2 ---
Anes-Prog Note L&D Date/Time: 05/02/22 07:27 Neuro status: Neuro function grossly intact. Vital Signs: Last Vital Signs Temp 36.4 C L 05/02/22 04:17 Pulse 87 05/02/22 04:17 Resp 20 05/02/22 04:17 BP 112/68 05/02/22 04:17 Pulse Ox 100 05/02/22 04:17 O2 Del Method Room Air 05/02/22 04:17 Pain score (VAS): 0 I/O: Intake & Output 05/01/22 05/01/22 05/02/22 15:59 23:59 07:59 Intake Total 500 240 Balance 500 240 Patient feedback: Patient satisfied with anesthetic care.
--- NOTE | 2022-05-02 07:38 | PM.OBPNVD ---
OB - PN: Subj Subjective Date/time seen: 05/02/22 07:38 s/p vaginal delivery day 1 OB - PN: Obj Data Labs 05/02/22 05:14 Labs: Laboratory Results - last 24 hr 05/02/22 05:14 Hgb 11.1 L Hct 32.8 L OB - PN A/P Plan day: 1 Plan: routine care and discharge home Time Spent With Patient Time: Total time spent is greater than 50% in coordination of care (as documented) at patient's floor/unit and/or counseling patient: Review of Systems Review of Systems: All systems reviewed & are unremarkable except as noted in HPI and below Exam Const: General: cooperative, healthy appearing and comfortable Resp: Effort & Inspection: normal respiratory effort
[2022-05-02] MEDS: buPROPion HCL SR (12 HR) 150 MG TAB PO (09:40)
[2022-05-02] MEDS: ESCITALOPRAM OXALATE 10 MG TABLET PO (09:41)
[2022-05-02] MEDS: MULTIVIT/MIN/PREN/FOL AC/IRON TABLET 1 TAB PO (09:41)
[2022-05-02] MEDS: DOCUSATE SODIUM 100 MG CAPSULE PO (09:41)
[2022-05-02 20:50] VITALS: BP 110/69; PULSE 81; RESP 18; TEMP 37.2
[2022-05-03 08:00] VITALS: BP 109/75; PULSE 82; RESP 18; TEMP 37.1
--- NOTE | 2022-05-03 08:58 | PM.OBPNVD ---
OB - PN: Subj Subjective Date/time seen: 05/03/22 08:58 s/p vaginal delivery day 2 OB - PN: Obj Data Labs 05/02/22 05:14 OB - PN A/P Plan day: 2 Plan: routine care and discharge home Time Spent With Patient Time: Total time spent is greater than 50% in coordination of care (as documented) at patient's floor/unit and/or counseling patient: Review of Systems Review of Systems: All systems reviewed & are unremarkable except as noted in HPI and below Exam Const: General: cooperative, healthy appearing and comfortable
--- NOTE | 2022-05-03 09:00 | P.DS_ITS ---
DS: Admitting Diagnosis Discharge Date 05/03/22 Admitting Diagnosis IOL, cholestasis DS: Discharge Diagnosis Discharge Diagnosis (1) Vaginal delivery: Code(s): O80 - Encounter for full-term uncomplicated delivery Status: Acute OB - DS: Summary OB Procedures : None OB Procedures Intrapartum: Spontaneous Vag Delivery OB Procedures: : None Time Spent with Patient Time attestation: Total time spent providing and/or coordinating discharge services: DS: Data Data Completed and Pending Completed studies during hospitalization: Pending at discharge 05/01/22 05:52 Surgical [PTH] Routine Discharge Plan Discharge Attending physician on discharge: Luda Packer Discharging Clinician: Carmela Hawthorne Patient Disposition: Home, Self-Care Activity: pelvic rest Diet: regular Patient Instructions: Antibiotic Form Stand Alone Forms: General Discharge Information Follow-up/Referrals: Carmela Hawthorne CNM [Certified Nurse Delivery Table Operator] - 4 Weeks Discharge Medications: New ibuprofen 600 mg Tablet 600 mg PO Q6H PRN (Reason: Cramping) Qty: 30 0RF Continued bupropion HCl 150 mg tablet sustained-release 12 hr 150 mg PO DAILY escitalopram oxalate 10 mg tablet 10 mg PO DAILY ursodiol 300 mg Capsule 300 mg PO BID #2 Tablet 1 tablet PO DAILY Discontinued ondansetron [Zofran ODT] 4 mg Tablet,Disintegrating 4 mg PO Q6H PRN (Reason: Sleep) Unisom (diphenhydramine) 50 mg/30 mL Liquid 50 mg PO HS PRN (Reason: Sleep) Date of admission: 04/30/22 00:01 Primary Care Provider: PHYSICIAN,FINANCIAL HEALTH COUNSELOR Admitting Provider: Luda Packer Attending physician on admission: Luda Packer Condition: Stable
[2022-05-03] MEDS: MULTIVIT/MIN/PREN/FOL AC/IRON TABLET 1 TAB PO (09:26)
[2022-05-03] MEDS: DOCUSATE SODIUM 100 MG CAPSULE PO (09:26)
[2022-05-03] MEDS: ESCITALOPRAM OXALATE 10 MG TABLET PO (09:27)
[2022-05-03] MEDS: ursodioL 300 MG CAPSULE PO (09:27)
[2022-05-03] MEDS: buPROPion HCL SR (12 HR) 150 MG TAB PO (09:27)
[2022-05-03] MEDS: ACETAMINOPHEN 325 MG TABLET 650 MG PO (09:29)
--- NOTE | 2022-05-03 10:00 | PC.NURSE ---
Patient viewed the discharge video Mother & Baby Care, The First Two Weeks . Patient was given the opportunity and encouraged to ask questions. Patient verbalized understanding of information shared and has been given the mother/baby guide for home reference.
[2022-05-05 09:06] VITALS: BP 109/72; PULSE 94; RESP 20; TEMP 36.9; O2SAT 98
== END 2022-05-03 12:50 | disposition home or self-care (01) | DRG 560 ==
LOC: ANHLDR 00:03 → ANHOB2 05-01 09:29
PROVIDERS: Advanced Practice Midwife; Admitting Provider Obstetrics & Gynecology; Visit Provider Obstetrics & Gynecology
DX: O26.62 Liver and biliary tract disorders in childbirth (principal); K83.1 Obstruction of bile duct; O69.81X0 Labor and delivery complicated by cord around neck, without compression, not applicable or unspecified; Z3A.37 37 weeks gestation of pregnancy; Z37.0 Single live birth; Z87.891 Personal history of nicotine dependence; O99.344 Other mental disorders complicating childbirth; F41.9 Anxiety disorder, unspecified; F32.A Depression, unspecified; O99.214 Obesity complicating childbirth
CPT/HCPCS: 36415; 85014; 85018; 85025; 86592; 86850; 86880; 86900; 86901; 88307; A9270; J2405; J2590; J2795; J7120

== ENCOUNTER 2022-11-24 07:05 | Emergency (ER) | payer OTHER, SELFPAY ==
[2022-11-24] VITALS (7 sets, daily range): BP systolic 97–125; BP diastolic 62–100; PULSE 66–119; RESP 18; TEMP 36.4; O2SAT 97–100
[2022-11-24 07:35] LABS: Basophils Percent Auto 0.3 % (0.2-1.2); Eosinophils Absolute Auto 0.1 K/mm3 (0-0.3); Eosinophils Percent Auto 0.4 % (0-4.4); Hematocrit 42.1 % (37.0-47.0); Hemoglobin 14.7 g/dL (12.0-15.0); Immature Granulocyte Absolute 0.07 K/mm3 (0.00-0.031); Immature Granulocyte Percent A 0.4 % (0-0.5); Lymphocytes Absolute Auto 2.67 K/mm3 (0.9-3.2); Lymphocytes Percent Auto 17.1 % (18.3-44.2); Mean Corpuscular HGB Conc 34.9 g/dl (32-36); Mean Corpuscular Hemoglobin 30.8 pg (26-34); Mean Corpuscular Volume 88.1 fl (80-100); Mean Platelet Volume 10.4 fl (7.4-10.4); Monocytes Absolute Auto 0.7 K/mm3 (0.1-0.6); Monocytes Percent Auto 4.7 % (2.6-8.5); Neutrophils Percent Auto 77.1 % (45.5-73.1); Platelet Count Result 269 k/mm3 (150-375); Red Blood Count 4.78 M/mm3 (4.2-5.4); Red Cell Distribution Width 13.7 % (11.5-14.5); White Blood Count 15.6 K/mm3 (4.5-10.0)
[2022-11-24 07:43] LABS: Alanine Aminotransferase 19 U/L (6-35); Albumin Level 4.2 g/dL (3.5-5.1); Alkaline Phosphatase 76 U/L (38-126); Anion Gap 7 mmol/L (8-16); Aspartate Amino Transferase 20 U/L (14-36); Bilirubin,Total 0.6 mg/dL (0.2-1.3); Blood Urea Nitrogen 8 mg/dL (7-17); Calcium 9.4 mg/dL (8.4-10.2); Carbon Dioxide 24 mmol/L (22-30); Chloride 104 mmol/L (98-107); Estimated CRCL calculation 135 ml/min; Estimated Glomerular Filt Rate > 60; Glucose 92 mg/dL (65-110); Lipase 28 U/L (23-300); Potassium 4.1 mmol/L (3.4-5.0); Sodium 135 mmol/L (137-145)
[2022-11-24 07:44] LABS: Appearance Urine Turbid (Clear); Bacteria Urine 4+ /hpf; Bilirubin Urine 1+ (Negative); Blood Urine Negative (Negative); Color Urine Dark Yellow (Yellow); Glucose Urine UA Negative (Negative); Ketones Urine 3+ mg/dL (Negative); Leukocyte Esterase Ur 1+ LEU/UL (Negative); Nitrate Urine Negative (Negative); Protein Urine 1+ mg/dL (Negative); RBC Urine 0-2 /hpf (0-2); Specific Grav Ur 1.027 (1.001-1.035); Squamous Epithelial Cell Urine Many /hpf (Few); WBC Urine 51-100 /hpf
[2022-11-24 07:51] LABS: Add Urine Microscopic? YES
[2022-11-24] MEDS: METOCLOPRAMIDE HCL INJ 10 MG/2 ML VIAL IV PUSH (07:53)
[2022-11-24] MEDS: diphenhydrAMINE HCl INJ 50 MG/ML VIAL 25 MG IV PUSH (07:53)
[2022-11-24] MEDS: LACTATED RINGERS 1,000 ML 999 ML IV CONT (07:53)
--- NOTE | 2022-11-24 09:16 | ED.NAVMDI ---
HPI - Nausea/Vomiting/Diarrhea General Chief complaint: Nausea/Vomiting/Diarrhea Stated complaint: nausea/vomiting-11 weeks Time Seen by Provider: 11/24/22 08:25 Source: patient, RN notes reviewed and old records reviewed Mode of arrival: ambulatory Limitations: no limitations History of Present Illness HPI Narrative: This is a 22 year old female approximately 11 weeks GA who presents for evaluation of nausea and vomiting. She reports having issues with morning sickness with her . She reports vomiting since yesterday and she also reports migraine headache. She denies abdominal pain, urinary symptoms, diarrhea, vaginal bleeding. She goes to [facility]'s [place] and she has had US to confirm IUP for this . Related Data Home Medications Medication Instructions Recorded Confirmed bupropion HCl 150 mg tablet,12 hr 150 mg PO DAILY 04/16/22 04/30/22 sustained-release escitalopram oxalate 10 mg tablet 10 mg PO DAILY 04/16/22 04/30/22 prenat.vits,edilson,[id number] 1 tablet PO DAILY 04/28/22 04/28/22 ursodiol 300 mg capsule 300 mg PO BID 04/28/22 04/28/22 Allergies Allergy/AdvReac Type Severity Reaction Status Date / Time No Known Allergies Allergy Verified 11/24/22 07:33 Review of Systems Constitutional: Constitutional: Denies weakness Cardiovascular: Cardiovascular: Denies syncope, Denies rapid heart rate, Denies irregular heart rhythm, Denies leg edema and Denies dyspnea Respiratory: Respiratory: Denies chest congestion, Denies hemoptysis, Denies excessive phlegm production and Denies dyspnea Gastrointestinal: Gastrointestinal: Denies abdominal pain, Denies hematochezia, Denies diarrhea, Reports nausea and Reports vomiting Genitourinary: Genitourinary: Denies hematuria and Denies dysuria Musculoskeletal: Musculoskeletal: Denies joint swelling, Denies loss of height and Denies muscle weakness Neurologic: Denies syncope, Denies focal weakness and Denies weakness PMFSH Past Medical History Medical History (Updated 11/24/22 @ 09:32 by Tati Shirley MD) Anxiety Depression Epilepsy Obesity Surgical History Surgical History No significant past surgical history Family History Family History Father Cerebrovascular accident Mother , Motorcycle accident Unknown family medical history Social History Social History Smoking status: Former smoker Tobacco type: e-cigarettes/vaping Second hand tobacco smoke exposure: No Smoking end date: 09/27/21 Alcohol intake: former Substance use: never Lack of Transportation: No Lack of Food: Never True Current Housing: I Have Housing Concerned About Future Housing: No Difficulty Paying Gas/Electric Bills: No Difficulty Paying for Meds: No Currently Unemployed: YES Education: High School Diploma/GED Difficulty w/ Childcare or Family Care: No Living arrangements: with family Occupation/Education: occupation Gender identity (if verbalized by the patient): Female Sexual Orientation (if Verbalized by the Patient): Straight or Heterosexual Spiritual care concerns: No Exam Const: General: no acute distress and alert Nutritional Appearance: well nourished Orientation/consciousness: patient oriented x3 HENMT: Head: normal to inspection Mouth: Yes Normal oral and palatal mucosa present, Yes lip normal and Yes moist mucous membranes Eyes: EOM: EOMs intact bilaterally Resp: Effort & Inspection: normal respiratory effort Auscultation: clear to auscultation bilaterally Cardio: Rate: regular rate Rhythm: regular rhythm Heart sounds: no murmurs GI: GI Palp: Yes Soft to palpation, No Tenderness to palpation present (GI), No Guarding due to palpation present (GI) and No Rigid due to palpation Auscultation: normal
== END 2022-11-24 09:55 | disposition home or self-care (01) ==
PROVIDERS: Emergency Provider General Practice
DX: O21.0 Mild hyperemesis gravidarum (principal); Z3A.11 11 weeks gestation of pregnancy; O23.41 Unspecified infection of urinary tract in pregnancy, first trimester; N39.0 Urinary tract infection, site not specified; O99.341 Other mental disorders complicating pregnancy, first trimester; F41.8 Other specified anxiety disorders
CPT/HCPCS: 36415; 80053; 81001; 81025; 83690; 85025; 87077; 87086; 87088; 87186; 96361; 96365; 96375; 99284; J0696; J1200; J2765; J7120

== ENCOUNTER 2023-03-24 10:56 | Outpatient (RCR) | payer OTHER, SELFPAY ==
[2023-03-24 12:45] LABS: Glucose 1 Hour PP 50gm Dose 89 mg/dL
[2023-03-24 13:22] LABS: HIV 1/2 Ab P24 Ag Result Negative (Negative)
[2023-03-26] MEDS: RHO(D) IMMUNE GLOBULIN 300 MCG/2 ML SYRINGE IM (15:36)
== END 2023-06-22 23:59 | disposition home or self-care (01) ==
LOC: ANHLAB 10:56
PROVIDERS: Visit Provider Obstetrics & Gynecology
DX: Z11.4 Encounter for screening for human immunodeficiency virus [HIV] (principal); Z29.13 Encounter for prophylactic Rho(D) immune globulin; O36.0130 Maternal care for anti-D [Rh] antibodies, third trimester, not applicable or unspecified; Z3A.00 Weeks of gestation of pregnancy not specified
CPT/HCPCS: 36415; 82947; 85461; 86703; 86850; 86900; 86901; 90384; 96372; G0432; J2790

== ENCOUNTER 2023-04-22 09:48 | Observation (INO) | payer OTHER, SELFPAY ==
[2023-04-22] VITALS (11 sets, daily range): BP systolic 100–121; BP diastolic 58–75; PULSE 82–101; TEMP 36.6; BMI 39.4
[2023-04-22 10:35] LABS: Appearance Urine Cloudy (Clear); Bacteria Urine 4+ /hpf; Bilirubin Urine Negative (Negative); Blood Urine Negative (Negative); Color Urine Yellow (Yellow); Glucose Urine UA Negative (Negative); Ketones Urine 2+ mg/dL (Negative); Leukocyte Esterase Ur 1+ LEU/UL (NEGATIVE); Nitrate Urine Negative (Negative); Protein Urine 1+ mg/dL (Negative); RBC Urine 0-2 /hpf (0-2); Specific Grav Ur 1.018 (1.001-1.035); Squamous Epithelial Cell Urine Many /hpf (Few); WBC Urine 21-50 /hpf (0-3)
[2023-04-22 10:45] LABS: Add Urine Microscopic? YES
[2023-04-22] MEDS: DEXTROSE 5%/LACTATED RINGERS 1,000 ML 999 ML IV CONT (11:35)
[2023-04-22] MEDS: FAMOTIDINE 20 MG/2 ML VIAL IV PUSH (11:36)
[2023-04-22] MEDS: LOPERAMIDE HCL 2 MG CAPSULE PO (11:36)
[2023-04-22] MEDS: ONDANSETRON INJ 4 MG/2 ML VIAL IV PUSH (11:36)
[2023-04-22 11:56] LABS: Hematocrit 37.7 % (37.0-47.0); Hemoglobin 12.8 g/dL (12.0-15.0); Mean Corpuscular Hemoglobin 30.6 pg (26-34); Mean Corpuscular Volume 90.2 fl (80-100); Mean Platelet Volume 10.4 fl (7.4-10.4); Platelet Count Result 219 k/mm3 (150-375); Red Blood Count 4.18 M/mm3 (4.2-5.4); Red Cell Distribution Width 13.6 % (11.5-14.5)
[2023-04-22 12:05] LABS: Alanine Aminotransferase 27 U/L (6-35); Albumin Level 3.5 g/dL (3.5-5.1); Alkaline Phosphatase 147 U/L (38-126); Anion Gap 7 mmol/L (8-16); Aspartate Amino Transferase 27 U/L (14-36); Bilirubin,Total 0.5 mg/dL (0.2-1.3); Blood Urea Nitrogen 3 mg/dL (7-17); Calcium 8.9 mg/dL (8.4-10.2); Carbon Dioxide 19 mmol/L (22-30); Chloride 107 mmol/L (98-107); Estimated CRCL calculation 192 ml/min; Estimated Glomerular Filt Rate > 60; Glucose 80 mg/dL (65-110); Potassium 3.6 mmol/L (3.4-5.0); Sodium 133 mmol/L (137-145)
[2023-04-22] MEDS: ursodioL 300 MG CAPSULE PO (12:32)
--- NOTE | 2023-04-22 12:39 | PC.NURSE ---
MD notified of patient status; ordered meds given, no further vomiting. pt c/o nausea. orders received to monitor patient longer. patient to discharge on 300 mg Urisdiol PO BID.
--- NOTE | 2023-04-22 13:18 | LDADM ---
This patient, Idania Medina, was admitted to OB Post 116 on 04/22/23 at 09:48. Plans for labor, pain management and were discussed with patient. Patient/family oriented to hospital policies and general routines including ID bracelet, bed and alarms, visiting hours, pain management, procedures, bathroom and other care routines, personal items, smoking policy, room service/diet and guest tray routines, infant security routines, and visiting hours. Patient/Family are encouraged to report perceived risks to care and to ask questions if they do not understand what they are told or what they should do. See OBIX for further documentation.
--- NOTE | 2023-05-11 18:11 | PM.OBTRLD ---
OB - Triage/Final Diagnosis Visit Information Comments/Additional reasons for admission: I have assessed the risk for this patient, Idania Medina, and determined that she would benefit from observation care. Evaluation Laboratory results: Laboratory Tests 04/22/23 04/22/23 10:18 11:43 WBC 11.0 H RBC 4.18 L Hgb 12.8 Hct 37.7 MCV 90.2 MCH 30.6 MCHC 34.0 RDW 13.6 Plt Count 219 MPV 10.4 Sodium 133 L Potassium 3.6 Chloride 107 Carbon Dioxide 19 L Anion Gap 7 L BUN 3 L D Creatinine 0.40 L Estim Creat Clear Calc 192 Estimated GFR > 60 Glucose 80 Calcium 8.9 Total Bilirubin 0.5 AST 27 ALT 27 Alkaline Phosphatase 147 H Total Protein 7.0 Albumin 3.5 Urine Color Yellow Urine Appearance Cloudy H Urine pH 6.0 Ur Specific [place] 1.018 Urine Protein 1+ H Urine Glucose (UA) Negative Urine Ketones 2+ H Ur Blood (Man) Negative Urine Nitrate Negative Urine Bilirubin Negative Urine Urobilinogen 1.0 Ur Leukocyte Esterase 1+ H Urine RBC 0-2 Urine WBC 21-50 Ur Squamous Epith Cells Many H Urine Bacteria 4+ H Urine Casts 3-5 Final Diagnosis (1) Nausea and vomiting: Code(s): R11.2 - Nausea with vomiting, unspecified Status: Acute
== END 2023-04-22 13:36 | disposition home or self-care (01) ==
PROVIDERS: Admitting Provider Obstetrics & Gynecology; Visit Provider Obstetrics & Gynecology
DX: O21.9 Vomiting of pregnancy, unspecified (principal); Z3A.00 Weeks of gestation of pregnancy not specified
CPT/HCPCS: 36415; 80053; 81001; 85027; 87077; 87086; 87088; 87186; 96361; 96374; 96375; A9270; G0378; G0379; J2405; J7120; J7121

== ENCOUNTER 2023-04-22 18:42 | Observation (INO) | payer OTHER, SELFPAY ==
[2023-04-22] VITALS (19 sets, daily range): BP systolic 104–122; BP diastolic 50–67; PULSE 25–96; O2SAT 76–100; BMI 39.3
--- NOTE | 2023-04-22 19:15 | OBADM ---
This patient, Idania Medina, admitted to the OB room OB Post 112 for observation. Patient/family oriented to hospital policies and general routines including ID bracelet, bed and alarms, visiting hours, pain management, procedures, bathroom and other care routines, personal items, smoking policy, room service/diet, and visiting hours. Patient/Family are encouraged to report perceived risks to care and to ask questions if they do not understand what they are told or what they should do.
[2023-04-22] MEDS: DEXTROSE 5%/LACTATED RINGERS 1,000 ML 999 ML IV CONT (19:43)
[2023-04-22 19:46] LABS: Appearance Urine Cloudy (Clear); Bacteria Urine 3+ /hpf; Bilirubin Urine Negative (Negative); Blood Urine Negative (Negative); Color Urine Yellow (Yellow); Glucose Urine UA Negative (Negative); Ketones Urine 4+ mg/dL (Negative); Leukocyte Esterase Ur 1+ LEU/UL (NEGATIVE); Nitrate Urine Negative (Negative); Protein Urine Trace mg/dL (Negative); RBC Urine 0-2 /hpf (0-2); Squamous Epithelial Cell Urine Many /hpf (Few); WBC Urine 21-50 /hpf (0-3)
[2023-04-22 19:49] LABS: Add Urine Microscopic? YES
[2023-04-22] MEDS: ONDANSETRON INJ 4 MG/2 ML VIAL IV PUSH (20:44)
[2023-04-22] MEDS: LACTATED RINGERS 1,000 ML 999 ML IV CONT (20:46)
[2023-04-22] MEDS: NITROFURANTOIN MONOHYD MACROCR 100 MG CAP PO (20:47)
--- NOTE | 2023-04-23 08:29 | P.PNOB_ITS ---
OB - Triage/Final Diagnosis Visit Information Date of evaluation: 04/22/23 Reason for evaluation: other (vomiting) Comments/Additional reasons for admission: I have assessed the risk for this patient, Idania Medina, and determined that she would benefit from observation care. Evaluation Laboratory results: Laboratory Tests 04/22/23 19:30 Urine Color Yellow Urine Appearance Cloudy H Urine pH 6.0 Ur Specific [place] 1.020 Urine Protein Trace Urine Glucose (UA) Negative Urine Ketones 4+ H Ur Blood (Man) Negative Urine Nitrate Negative Urine Bilirubin Negative Urine Urobilinogen 1.0 Ur Leukocyte Esterase 1+ H Urine RBC 0-2 Urine WBC 21-50 Ur Squamous Epith Cells Many H Urine Bacteria 3+ H Urine Casts 3-5 Vital signs: Vital Signs - 24 hr 04/22/23 19:15 04/22/23 19:21 04/22/23 19:30 Pulse Rate 94 90 Blood Pressure 122/62 109/61 Pulse Oximetry Oxygen Delivery Room Air 04/22/23 19:45 04/22/23 20:00 04/22/23 20:15 Pulse Rate 96 79 82 Blood Pressure 104/67 110/50 L 112/65 Pulse Oximetry Oxygen Delivery 04/22/23 20:30 04/22/23 20:45 04/22/23 21:00 Pulse Rate 86 83 89 Blood Pressure 109/57 L 110/53 L 109/53 L Pulse Oximetry Oxygen Delivery 04/22/23 21:45 04/22/23 21:45 04/22/23 21:50 Pulse Rate Blood Pressure Pulse Oximetry 76 L 100 98 Oxygen Delivery 04/22/23 21:55 04/22/23 22:00 04/22/23 22:05 Pulse Rate Blood Pressure Pulse Oximetry 98 97 97 Oxygen Delivery 04/22/23 22:10 04/22/23 22:15 04/22/23 22:26 Pulse Rate Blood Pressure Pulse Oximetry 97 97 100 Oxygen Delivery 04/22/23 22:31 04/22/23 22:36 04/22/23 22:41 Pulse Rate Blood Pressure Pulse Oximetry 98 99 97 Oxygen Delivery
== END 2023-04-22 23:01 | disposition home or self-care (01) ==
PROVIDERS: Admitting Provider Obstetrics & Gynecology; Visit Provider Obstetrics & Gynecology
DX: O21.9 Vomiting of pregnancy, unspecified (principal); Z3A.32 32 weeks gestation of pregnancy
CPT/HCPCS: 81001; 96374; A9270; G0378; G0379; J2405; J7120; J7121

== ENCOUNTER 2023-06-10 05:16 | Inpatient (IN) | payer OTHER, SELFPAY ==
[2023-06-10] VITALS (111 sets, daily range): BP systolic 61–141; BP diastolic 27–114; PULSE 44–128; RESP 16–18; TEMP 36.4–36.6; O2SAT 96–100; BMI 38.7
--- NOTE | 2023-06-10 05:42 | LDADM ---
This patient, Idania Medina, was admitted to Labor/Delivery/Recovery 102 on 06/10/23 at 05:16. Plans for labor, pain management and were discussed with patient. Patient/family oriented to hospital policies and general routines including ID bracelet, bed and alarms, visiting hours, pain management, procedures, bathroom and other care routines, personal items, smoking policy, room service/diet and guest tray routines, security routines, and visiting hours. Patient/Family are encouraged to report perceived risks to care and to ask questions if they do not understand what they are told or what they should do. See OBIX for further documentation.
[2023-06-10 06:06] LABS: Basophils Absolute Auto 0.1 K/mm3 (0.0-0.1); Basophils Percent Auto 0.3 % (0.2-1.2); Eosinophils Absolute Auto 0.1 K/mm3 (0-0.3); Eosinophils Percent Auto 0.6 % (0-4.4); Hemoglobin 12.4 g/dL (12.0-15.0); Immature Granulocyte Absolute 0.15 K/mm3 (0.00-0.031); Immature Granulocyte Percent A 0.8 % (0-0.5); Lymphocytes Absolute Auto 3.68 K/mm3 (0.9-3.2); Lymphocytes Percent Auto 20.1 % (18.3-44.2); Mean Corpuscular HGB Conc 32.6 g/dl (32-36); Mean Corpuscular Hemoglobin 29.7 pg (26-34); Mean Corpuscular Volume 91.1 fl (80-100); Mean Platelet Volume 10.5 fl (7.4-10.4); Monocytes Absolute Auto 0.8 K/mm3 (0.1-0.6); Monocytes Percent Auto 4.4 % (2.6-8.5); Neutrophils Absolute Auto 13.5 K/mm3 (1.3-6.7); Neutrophils Percent Auto 73.8 % (45.5-73.1); Platelet Count Result 206 k/mm3 (150-375); Red Blood Count 4.17 M/mm3 (4.2-5.4); White Blood Count 18.3 K/mm3 (4.5-10.0)
[2023-06-10] MEDS: LACTATED RINGERS 1,000 ML 125 ML IV CONT ×3 (06:06→11:44)
[2023-06-10] MEDS: OXYTOCIN 30 UNITS/NS 500 ML 30 UNITS/500 ML BAG IV CONT (06:07)
--- NOTE | 2023-06-10 07:49 | WPDOBADMIT ---
Obstetrics - Admit Note Admission Note: record reviewed. No pertinent additions to the history and/or any subsequent changes in the physical findings that are not consistent with the expected course of the were found. Additions to the history and/or subsequent changes in the physical findings follow. IOl, elective, SVE /-2 arom moderate amount of clear odorless fluid, anticipate vaginal delivery
--- NOTE | 2023-06-10 08:40 | WPDANESEPP ---
Anes - Eval Pre Procedure Procedure: Labor epidural Date/Time: 06/10/23 08:40 Surgeon: Birdie Preop Diagnosis: Pain during labor Pre Op Diagnosis: IOL Patient Data Age: 23 Gender: F Height: 1.57 m Weight: 96 kg Last Vital Signs Pulse 88 06/10/23 08:31 BP 110/78 06/10/23 08:31 Allergies Allergy/AdvReac Type Severity Reaction Status Date / Time No Known Allergies Allergy Verified 05/18/23 12:43 Home Medications Medication Instructions Recorded Confirmed Type prenat.vits,edilson,[id number] 1 tablet PO DAILY 04/28/22 05/18/23 History ondansetron 4 mg disintegrating 4 mg PO Q8H PRN Nausea And Vomiting 04/22/23 05/18/23 History tablet sertraline 50 mg tablet 50 mg PO BID 04/22/23 05/18/23 History Laboratory Tests 06/10/23 05:37 WBC 18.3 H K/mm3 (4.5-10.0) RBC 4.17 L M/mm3 (4.2-5.4) Hgb 12.4 g/dL (12.0-15.0) Hct 38.0 % (37.0-47.0) MCV 91.1 fl (80-100) MCH 29.7 pg (26-34) MCHC 32.6 g/dl (32-36) RDW 14.0 % (11.5-14.5) Plt Count 206 k/mm3 (150-375) MPV 10.5 H fl (7.4-10.4) Immature Gran % (Auto) 0.8 H % (0-0.5) Neut % (Auto) 73.8 H % (45.5-73.1) Lymph % (Auto) 20.1 % (18.3-44.2) Bullock % (Auto) 4.4 % (2.6-8.5) Eos % (Auto) 0.6 % (0-4.4) Baso % (Auto) 0.3 % (0.2-1.2) Lymph # (Auto) 3.68 H K/mm3 (0.9-3.2) Bullock # (Auto) 0.8 H K/mm3 (0.1-0.6) Eos # (Auto) 0.1 K/mm3 (0-0.3) Baso # (Auto) 0.1 K/mm3 (0.0-0.1) Abs Immat Gran (auto) 0.15 H K/mm3 (0.00-0.031) Absolute Neuts (auto) 13.5 H K/mm3 (1.3-6.7) Absolute Nucleated RBC 0.0 K/mm3 (0.0-0.012) Nucleated RBC % 0.0 % (0.0-0.2) RPR Pending Blood Type O Negative Antibody Screen Negative Patient hx anesthesia problems: none Family hx anesthesia problems: none Results Review: All pre-operative results and documents have been reviewed as part of the pre-operative evaluation. [facility] Past Medical History Medical History Anxiety Depression Epilepsy Obesity Surgical History Surgical History No significant past surgical history Family History Family History Father Cerebrovascular accident Mother , Motorcycle accident Unknown family medical history Epilepsy Social History Social History Smoking status: Former smoker Tobacco type: e-cigarettes/vaping Second hand tobacco smoke exposure: No Smoking end date: 09/27/21 Alcohol intake: former Substance use: never Do You Feel Safe in your Home?: No Lack of Transportation: No Lack of Food: Never True Current Housing: I Have Housing Concerned About Future Housing: No Difficulty Paying Gas/Electric Bills: No Difficulty Paying for Meds: No Currently Unemployed: No Education: High School Diploma/GED Difficulty w/ Childcare or Family Care: No Living arrangements: with family Occupation/Education: occupation Gender identity (if verbalized by the patient): Female Sexual Orientation (if Verbalized by the Patient): Straight or Heterosexual Spiritual care concerns: No Exam Day of Procedure 06/10/23 08:40 Patient weight: obese Heart: regular rate and rhythm Lungs: clear to auscultation Airway: Mallampati scale Neurological: alert and oriented
--- NOTE | 2023-06-10 12:30 | PM.OBPRVD ---
OB - Vaginal Delivery Note Procedure Delivery date: 06/10/23 Induction method: AROM and Per Pitocin Protocol Delivery monitor: External FHT and External Uterine Route of delivery: Episiotomy description: None Laceration Description: None Specimen: No Quantitative Blood Loss (ml): 100 Anesthesia type: None Disposition: Floor Baby Date of : 06/10/23 Weeks of gestation at delivery: 39 gender: Male Weight (pounds): 7 Weight (ounces): 1 presentation: vertex position: Left Occiput Anterior Placenta delivery description: Spontaneous Cord Vessel Description: 3 Vessels score one minute: 7 score five minutes: 9 Narrative: mother and baby in stable condition
[2023-06-10] MEDS: OXYTOCIN 30 UNITS/NS 500 ML 30 UNITS/500 ML BAG 125 UNITS IV CONT (13:05)
[2023-06-10] MEDS: BENZOCAINE 20% AER SPR (*SP) 56 GM CAN 1 SPRAY TOPICAL (14:55)
[2023-06-10] MEDS: WITCH HAZEL 40 PADS 1 PAD TOPICAL (14:55)
[2023-06-10] MEDS: ACETAMINOPHEN 325 MG TABLET 650 MG PO (14:55)
[2023-06-10 16:00] LABS: Rapid Plasma Reagin Non-Reactive (NonReactive)
[2023-06-10] MEDS: IBUPROFEN 600 MG TABLET PO (21:52)
[2023-06-11 05:32] VITALS: BP 92/58; PULSE 89; RESP 18; TEMP 36.7; O2SAT 97
[2023-06-11 06:02] LABS: Hematocrit 35.2 % (37.0-47.0); Hemoglobin 11.5 g/dL (12.0-15.0)
[2023-06-11 07:40] VITALS: BP 102/67; PULSE 101; RESP 18; TEMP 36.6; O2SAT 99
[2023-06-11] MEDS: IBUPROFEN 600 MG TABLET PO (07:53)
--- NOTE | 2023-06-11 08:28 | WPDANLDPN2 ---
Anes-Prog Note L&D Date/Time: 06/11/23 08:28 Comfortable throughout: labor and delivery Neuraxial method: epidural Epidural/Spinal procedure site: clean & non-tender Neuro status: Neuro function grossly intact. low back pain. epidural was clean and intact. Cardiovascular status: normal Respiratory status: normal Airway patency: baseline Mental status: baseline Post-Op hydration status: normal Vital Signs: Last Vital Signs Temp 36.7 C 06/11/23 05:32 Pulse 89 06/11/23 05:32 Resp 18 06/11/23 05:32 BP 92/58 L 06/11/23 05:32 Pulse Ox 97 06/11/23 05:32 O2 Del Method Room Air 06/10/23 21:30 Pain score (VAS): 3 Post-procedural complaints: none Patient feedback: Patient satisfied with anesthetic care.
[2023-06-11] MEDS: MULTIVIT/MIN/PREN/FOL AC/IRON TABLET 1 TAB PO (09:38)
[2023-06-11] MEDS: RHO(D) IMMUNE GLOBULIN 300 MCG/2 ML SYRINGE IM (11:12)
[2023-06-11 12:46] VITALS: BP 93/58; PULSE 82; RESP 16; TEMP 37; O2SAT 99
--- NOTE | 2023-06-11 15:16 | PC.NURSE ---
Patient instructed on viewing the discharge video Mother & Baby Care, The First Two Weeks . Patient was given the opportunity and encouraged to ask questions. Patient verbalized understanding of information shared and has been given the mother/baby guide for home reference.
--- NOTE | 2023-06-11 16:41 | PC.NURSE ---
[id number] Introductions were made, then consulted with patient to assess needs related to . Mother led the conversation with her?plans to feed?her infant and the?experience so far. Encouraged understanding of the benefits of skin to skin (demonstrating unwrapping and placing upright on her chest), stimulating with massage touch, changing positions to encourage wakefulness, how to watch for early feeding cues, responsive feeding, feeding on demand (aiming for 8-12 times in 24 hours, about every 2-3 hours), milk production, building/maintaining a milk supply, duration of feeding, signs of adequate intake/output and how to record on the feeding sheet. Practiced the hand expression technique with mother per request. Resources used for education were facilitated with the visual educational handouts, tool, mom and baby guide. Inpatient/outpatient resources provided with feeding sheet, name written on the communication board, and the mom/baby guide. Mother voiced understanding of information, demonstrated learning and will call if there is a request for assistance.
[2023-06-12 15:12] VITALS: BP 115/75; PULSE 95; RESP 18; TEMP 37.2; O2SAT 100
--- NOTE | 2023-06-12 15:40 | P.PNAN_ITS ---
Anes - Prog Note Post-Op Date/Time: 06/12/23 15:40 Cardiovascular status: normal Respiratory status: normal Airway patency: baseline Mental status: baseline Post-Op hydration status: normal Vital Signs: Last Vital Signs Temp 37.2 C 06/12/23 15:12 Pulse 95 06/12/23 15:12 Resp 18 06/12/23 15:12 BP 115/75 06/12/23 15:12 Pulse Ox 100 06/12/23 15:12 O2 Del Method Room Air 06/10/23 21:30 Pain Score (VAS): 0 Laboratory Tests 06/11/23 05:53 06/11/23 05:53 Blood Type O Negative Antibody Screen Negative Screen Negative Baby's Blood Type O pos Baby's CAITLYN Negative Doses of RhIg Required 1 Post-procedural complaints: none Patient Feedback: Patient satisfied with anesthetic care. Other Findings: asked to see pt in follow-up office regarding some leg heaviness on standing. She had an epidural that worked well after multiple attempts earlier this week. the heaviness is in her hips. She has excellent strength of BL lower extremitie s flexion extension abduction and adduction. Reflexes normal and symmetrical. no bowel or bladder dysfxn. Placement site clean dry no erythema mild tenderness. Recommended monitoring. if weakness or bowel bladder changes be seen immediately. If not better in a week asked to be seen again. also recommended anti inflammatory medication. Pt agreed and understood plan.
--- NOTE | 2023-07-09 21:08 | PM.OBDSVD ---
DS: Admitting Diagnosis Discharge Date 06/11/23 Admitting Diagnosis term DS: Discharge Diagnosis Discharge Diagnosis (1) Term delivered: Code(s): O80 - Encounter for full-term uncomplicated delivery Status: Acute OB - DS: Summary OB Procedures : None OB Procedures Intrapartum: Spontaneous Vag Delivery OB Procedures: : None Peripartum Data Laceration Description: None Episiotomy description: None Time Spent with Patient Time attestation: Total time spent providing and/or coordinating discharge services: Discharge Plan Discharge Consulting providers: Carmela Hawthorne; Minda He; Keira Lynn Discharging Clinician: Luda Packer Patient Disposition: Home, Self-Care Activity: as tolerated Diet: regular Discharge Instructions: Education: Mom and Baby Guide Given to: Mother Follow-Up: Call your delivering provider's office for an appointment to be seen in: 6 Weeks Mom and baby [facility] the follow-up appointment. Appointment Date/Time: June 12, 2023 at 2:30 pm What to expect at your follow-up visit: Physical Assessment Call [phone] if you are unable to keep your appointment time. BREAST CARE: * Wear a snug supportive bra. * For engorgement discomfort: Breast Feeding: * Apply warm moist washcloths * Express milk as needed to relieve engorgement * Wear loose clothing * For sore nipples: * Identify correct latch-on * Apply warm moist washcloths before and after nursing * Air dry nipples after nursing * May apply Lansinoh cream to nipples EPISIOTOMY/PERINEAL CARE: * Until bleeding stops, use your james bottle after urinating * Change your pad frequently throughout the day * No tub baths until seen by your physician - You may shower ACTIVITY: * Rest as much as possible. * Do not exercise or lift anything heavier than your baby (such as laundry or other children.) * Avoid stairs or driving as much as possible. * Do not put anything into the vagina. No douching, tampons, or sexual activity until seen by physician. NOTIFY PHYSICIAN IF YOU HAVE ANY QUESTIONS OR IF ANY OF THE FOLLOWING SYMPTOMS OCCUR: * If your perineum becomes red, swollen, or more painful than what you have experienced in the hospital. * If your vaginal bleeding becomes foul smelling. * If your vaginal bleeding becomes more heavy than a period or if your bleeding changes from pink to bright red. However, you may pass an occasional walnut-sized clot once or twice for the first week . * If you experience a sharp, shooting pain in you calves. * If you discover a hard, reddened area on your breast or if you experience flu-like symptoms. DIET: * Eat regular, well-balanced meals. * Drink plenty of fluids daily. If , drink to thirst. Patient Instructions: Antibiotic Form, How to Stop Smoking (DC) Stand Alone Forms: General Discharge Information Follow-up/Referrals: Luda Packer MD [Physician] - Discharge Medications: Continued prenat.vits,edilson,[id number] Tablet 1 tablet PO DAILY ondansetron 4 mg tablet,disintegrating 4 mg PO Q8H PRN (Reason: Nausea And Vomiting) sertraline 50 mg tablet 50 mg PO BID Date of admission: 06/10/23 05:16 Primary Care Provider: PHYSICIAN,SHIRRING MACHINE OPERATOR Admitting Provider: Luda Packer Attending physician on admission: Luda Packer Condition: Stable
== END 2023-06-11 20:10 | disposition home or self-care (01) | DRG 560 ==
LOC: ANHLDR 06:11 → ANHOB2 15:19
PROVIDERS: Advanced Practice Midwife; Admitting Provider Obstetrics & Gynecology; Visit Provider Obstetrics & Gynecology
DX: O80 Encounter for full-term uncomplicated delivery (principal); Z37.0 Single live birth; Z3A.39 39 weeks gestation of pregnancy
CPT/HCPCS: 36415; 85014; 85018; 85025; 85461; 86592; 86850; 86900; 86901; 90384; A9270; J2590; J2790; J2795; J7120

== ENCOUNTER 2023-08-06 10:17 | Emergency (ER) | payer OTHER, SELFPAY ==
--- NOTE | 2023-08-06 10:18 | ED.URI ---
HPI - URI/Sore Throat General Chief Complaint: Upper Respiratory Infection Stated Complaint: Chest Congestion,Vomiting,Headache Time Seen by Provider: 08/06/23 10:18 Source: patient Mode of arrival: ambulatory Limitations: no limitations History of Present Illness HPI Narrative: Patient is a 23-year-old female presents the past month is worse last days along with sinus congestion and headache. Patient has tried ibuprofen no relief. Denies any fever, chills, nausea, vomiting, diarrhea. Patient has a 13 month and a at home. Patient is not currently . Related Data Allergies Allergy/AdvReac Type Severity Reaction Status Date / Time No Known Allergies Allergy Verified 08/06/23 10:29 Review of Systems Review of Systems: All systems reviewed & are unremarkable except as noted in HPI and below Constitutional: Constitutional: Denies body ache(s), Denies chills, Denies fatigue, Denies fever(s), Reports headache(s), Denies malaise and Denies weakness Eyes: Eyes: Denies blurry vision, Denies itchy eyes and Denies loss of vision ENT: Denies otalgia, Denies headache(s), Reports nasal congestion, Denies sinus pain and Denies sore throat Cardiovascular: Cardiovascular: Denies chest pain, Denies irregular heart rhythm and Denies dyspnea Respiratory: Respiratory: Reports cough and Denies dyspnea Gastrointestinal: Gastrointestinal: Denies abdominal pain, Denies diarrhea, Denies nausea and Denies vomiting Musculoskeletal: Musculoskeletal: Denies back pain, Denies myalgias and Denies arthralgias Integumentary/Breasts: Skin/Breast: Denies pruritus and Denies rash Neurologic: Denies headache(s), Denies loss of vision and Denies weakness Psychiatric: Psychiatric: Reports no additional psychiatric complaints Endocrine: Endocrine: Denies fatigue Allergic/Immunologic: Allergic/Immunologic: Denies itchy eyes PMFSH Past Medical History Medical History Anxiety Depression Epilepsy Obesity Surgical History Surgical History No significant past surgical history Family History Family History Father Cerebrovascular accident Mother , Motorcycle accident Unknown family medical history Epilepsy Social History Social History Smoking status: Former smoker Tobacco type: e-cigarettes/vaping Second hand tobacco smoke exposure: No Smoking end date: 09/27/21 Alcohol intake: former Substance use: never Do You Feel Safe in your Home?: No Lack of Transportation: No Lack of Food: Never True Current Housing: I Have Housing Concerned About Future Housing: No Difficulty Paying Gas/Electric Bills: No Difficulty Paying for Meds: No Currently Unemployed: No Education: High School Diploma/GED Difficulty w/ Childcare or Family Care: No Living arrangements: with family Occupation/Education: occupation Gender identity (if verbalized by the patient): Female Sexual Orientation (if Verbalized by the Patient): Straight or Heterosexual Spiritual care concerns: No Comments At time of signature, agree with nursing past medical, surgical, social and family history. There is no relevant family history pertinent to the presenting complaint. Exam Const: General: cooperative, healthy appearing, comfortable, no acute distress and well nourished Nutritional Appearance: well nourished Orientation/consciousness: patient oriented x3 Limitations: no limitations HENMT: Head: normal to inspection, normocephalic and atraumatic Ears: hearing grossly normal bilaterally, external ears normal, TM's normal bilaterally, EAC's normal and no periauricular adenopathy Face/Nose/Sinus: Normal external nose present, Abnormal mucous membranes and turbinates present erythemato
[2023-08-06 10:22] VITALS: BP 107/63; PULSE 92; RESP 18; TEMP 36.3; O2SAT 99
== END 2023-08-06 11:04 | disposition home or self-care (01) ==
PROVIDERS: Emergency Provider Nurse Practitioner Family
DX: J06.9 Acute upper respiratory infection, unspecified (principal); R05.9 Cough, unspecified; Z20.822 Contact with and (suspected) exposure to COVID-19; Z87.891 Personal history of nicotine dependence; E66.9 Obesity, unspecified; Z68.39 Body mass index [BMI] 39.0-39.9, adult
CPT/HCPCS: 87426; 87804; 99213; G0463

== ENCOUNTER 2024-01-21 13:29 | Emergency (ER) | payer OTHER, SELFPAY ==
--- NOTE | ~2024-01-21 | US_ITS ---
EXAMINATION: US OB <=14 wk fetus w TV DATE: 01/21/2024 16:08 INDICATION: Vaginal bleeding during first trimester TECHNIQUE: Real-time pelvic ultrasound utilizing both a transvaginal and transabdominal probe was pe rformed. The interpreting radiologist was not present for the study. COMPARISON: None. FINDINGS: The uterus measures 8.5 x 3.5 x 4.6 cm. The endometrial complex measures 8 mm in maximal thickness wi th no intrauterine gestational sac. The right ovary measures 3.6 x 1.6 x 2.3 cm. The left ovary measu res 1.3 x 1.2 x 1.1 cm. There is a minimal amount of anechoic free fluid in the cul-de-sac. IMPRESSION: 1. No evident intrauterine gestational sac for which differential would include early, failed or ecto pic . Recommend correlation with serial beta-hCG levels and repeat ultrasound as clinically indicated. Reviewed, dictated and finalized at location B. IMPRESSION: 1. No evident intrauterine gestational sac for which differential would include early, failed or ectopic . Recommend correlation with serial beta-hCG levels and repeat ultrasound as clinically indicated.
[2024-01-21 13:33] VITALS: BP 125/87; PULSE 100; RESP 16; TEMP 36.3; O2SAT 99
[2024-01-21 14:19] LABS: Basophils Absolute Auto 0.1 K/mm3 (0.0-0.1); Basophils Percent Auto 0.4 % (0.2-1.2); Eosinophils Absolute Auto 0.2 K/mm3 (0-0.3); Eosinophils Percent Auto 1.7 % (0-4.4); Hematocrit 42.7 % (37.0-47.0); Hemoglobin 14.4 g/dL (12.0-15.0); Immature Granulocyte Absolute 0.04 K/mm3 (0.00-0.031); Immature Granulocyte Percent A 0.3 % (0-0.5); Lymphocytes Absolute Auto 2.99 K/mm3 (0.9-3.2); Lymphocytes Percent Auto 23.7 % (18.3-44.2); Mean Corpuscular HGB Conc 33.7 g/dl (32-36); Mean Corpuscular Hemoglobin 30.9 pg (26-34); Mean Corpuscular Volume 91.6 fl (80-100); Mean Platelet Volume 10.4 fl (7.4-10.4); Monocytes Absolute Auto 0.8 K/mm3 (0.1-0.6); Monocytes Percent Auto 6.4 % (2.6-8.5); Neutrophils Absolute Auto 8.5 K/mm3 (1.3-6.7); Neutrophils Percent Auto 67.5 % (45.5-73.1); Platelet Count Result 250 k/mm3 (150-375); Red Blood Count 4.66 M/mm3 (4.2-5.4); Red Cell Distribution Width 13.9 % (11.5-14.5); White Blood Count 12.6 K/mm3 (4.5-10.0)
[2024-01-21 14:58] LABS: Alanine Aminotransferase 29 U/L (6-35); Albumin Level 4.3 g/dL (3.5-5.1); Alkaline Phosphatase 65 U/L (38-126); Anion Gap 9 mmol/L (4-12); Aspartate Amino Transferase 28 U/L (14-36); Bilirubin,Total 0.4 mg/dL (0.2-1.3); Blood Urea Nitrogen 14 mg/dL (7-17); Calcium 9.3 mg/dL (8.4-10.2); Carbon Dioxide 29 mmol/L (22-30); Chloride 100 mmol/L (98-107); Estimated CRCL calculation 115 ml/min; Estimated Glomerular Filt Rate > 60; Glucose 86 mg/dL (65-110); Potassium 3.7 mmol/L (3.4-5.0); Sodium 138 mmol/L (137-145)
[2024-01-21 15:15] LABS: Beta HCG Quantitative 28.49 mIU/ML
[2024-01-21 15:15] LABS: Partial Thromboplastin Time 26.5 Seconds (22.3-36.8)
--- NOTE | 2024-01-21 16:13 | ED.FEMALEGU ---
HPI - Female Genitourinary General Chief complaint: Vaginal Bleeding Stated complaint: preg, cramping, bleeding Time Seen by Provider: 01/21/24 14:12 History of Present Illness HPI Narrative: 23-year-old female at approximately 6 weeks gestation presenting with vaginal bleeding. Last menstrual period was the end of November. States that she developed vaginal bleeding yesterday and has continued through today. She called her OB who advised that she come to the ER because they do not have an windows laptop technician today. She complains of mild lower abdominal cramping. No lightheadedness, chest pain, shortness of breath, leg swelling. Related Data Allergies Allergy/AdvReac Type Severity Reaction Status Date / Time No Known Allergies Allergy Verified 01/21/24 13:36 Review of Systems Review of Systems: All systems reviewed & are unremarkable except as noted in HPI and below PMFSH Past Medical History Medical History Anxiety Depression Epilepsy Obesity Surgical History Surgical History No significant past surgical history Family History Family History Father Cerebrovascular accident Mother , Motorcycle accident Unknown family medical history Epilepsy Social History Social History Smoking status: Former smoker Tobacco type: e-cigarettes/vaping Second hand tobacco smoke exposure: No Smoking end date: 09/27/21 Alcohol intake: former Substance use: never Do You Feel Safe in your Home?: No Lack of Transportation: No Lack of Food: Never True Current Housing: I Have Housing Concerned About Future Housing: No Difficulty Paying Gas/Electric Bills: No Difficulty Paying for Meds: No Currently Unemployed: No Education: High School Diploma/GED Difficulty w/ Childcare or Family Care: No Living arrangements: with family Occupation/Education: occupation Gender identity (if verbalized by the patient): Female Sexual Orientation (if Verbalized by the Patient): Straight or Heterosexual Spiritual care concerns: No Exam Narrative: GENERAL: Well-appearing, in no acute distress, pleasant cooperative HEAD: Normocephalic, atraumatic. EYES: PERRLA and EOMI. ENT: Grossly unremarkable NECK: Supple. CHEST: Clear to auscultation. No respiratory distress. HEART: Regular rate and rhythm ABDOMEN: Soft, mild suprapubic tenderness, no guarding or rebound EXTREMITIES: Normal range of motion. No edema. SKIN: Warm, dry, no rash. NEURO: No focal deficits. Alert and oriented x3. PSYCH: Normal mood and affect. Course Vital Signs Vital signs: Vital Signs Temperature 97.3 F L 01/21/24 13:33 Pulse Rate 100 01/21/24 13:33 Respiratory Rate 16 01/21/24 13:33 Blood Pressure 125/87 01/21/24 13:33 Pulse Oximetry 99 01/21/24 13:33 Oxygen Delivery Room Air 01/21/24 13:33 Temperature 97.3 F L 01/21/24 13:33 Pulse Rate 100 01/21/24 13:33 Respiratory Rate 16 01/21/24 13:33 Blood Pressure 125/87 01/21/24 13:33 Pulse Oximetry 99 01/21/24 13:33 Oxygen Delivery Room Air 01/21/24 13:33 MDM - Female Genitourinary MDM Narrative Medical decision making narrative: 23-year-old female presenting with vaginal bleeding the setting of early . Vitals within normal limits. Beta-hCG is only 28. Ultrasound shows no IUP which may represent failed, early, or ectopic . Given her dates and the low beta HCG, I think this likely represents miscarriage. Patient will follow-up closely with her OBGYN. Appropriate return precautions given. Discharged in stable condition. Lab Data 01/21/24 14:11 01/21/24 14:11 Labs: Lab Results 01/21/24 01/21/24 Range/Units 14:11 14:57 WBC 12
[2024-01-21] MEDS: RHO(D) IMMUNE GLOBULIN 300 MCG/2 ML SYRINGE IM (16:31)
[2024-01-21 16:46] VITALS: BP 122/75; PULSE 91; RESP 17; O2SAT 100
== END 2024-01-21 16:49 | disposition home or self-care (01) ==
PROVIDERS: Emergency Medicine; Emergency Provider Emergency Medicine; PCP Hospitalist
DX: O20.9 Hemorrhage in early pregnancy, unspecified (principal); O99.351 Diseases of the nervous system complicating pregnancy, first trimester; G40.909 Epilepsy, unspecified, not intractable, without status epilepticus; O99.281 Endocrine, nutritional and metabolic diseases complicating pregnancy, first trimester; E66.9 Obesity, unspecified; Z87.891 Personal history of nicotine dependence; Z3A.01 Less than 8 weeks gestation of pregnancy
CPT/HCPCS: 36415; 76801; 76817; 80053; 84702; 85025; 85461; 85610; 85730; 86850; 86900; 86901; 90384; 96372; 99284; J2790

== ENCOUNTER 2024-01-25 12:42 | Emergency (ER) | payer OTHER, SELFPAY ==
--- NOTE | ~2024-01-25 | CT_ITS ---
EXAMINATION: CTA chest PE protocol DATE: 01/25/2024 15:14 INDICATION: Shortness of breath. TECHNIQUE: Computed tomography angiography (CTA) of the chest was performed with 100 mL Omnipaque-350 intravenous contrast timed to evaluate the pulmonary arteries. Coronal maximum intensity projection 3D-reconstructions were created by the technologist. Automated exposure control and iterative reconst ruction technique were employed. The dose-length product was 546.27 mGy-cm. COMPARISON: None. FINDINGS: There is no pneumonia or pleural effusion. The heart size is normal. No pericardial effusio n. There is no pulmonary embolus. The bones are unremarkable. IMPRESSION: 1. No pulmonary embolus. Reviewed, dictated and finalized at location A. IMPRESSION: 1. No pulmonary embolus.
[2024-01-25 12:52] VITALS: BP 117/79; PULSE 116; RESP 18; TEMP 36.6; O2SAT 99
--- NOTE | 2024-01-25 12:54 | ED.SOB ---
HPI - SOB/Dyspnea General Chief Complaint: Shortness of Breath/Dyspnea <Elaine Laura APRN - Last Filed: 01/25/24 13:07> Stated Complaint: sob/cp <Elaine Laura APRN - Last Filed: 01/25/24 13:07> Time Seen by Provider: 01/25/24 13:03 <Elaine Laura APRN - Last Filed: 01/25/24 13:07> Focused HPI: Pt is a 23-year-old female who presents to the ER with complaints of chest pain and shortness of breath. She reports she was here on Thursday and found out she was having a miscarriage after having vaginal bleeding and cramping at home. Pt reports she thinks she was about 6 weeks along. She has had two other full term pregnancies. Pt reports she started experiencing chest pain and SOB on Thursday. She called her OB today who advised her to come to the ER. Pt reports her chest pain and shortness of breath intermittent. She denies any history of blood clots or asthma. GENERAL: Well-appearing, well-nourished, and in no acute distress. HEAD: Normocephalic, atraumatic. CHEST: Clear to auscultation. ?No respiratory distress. HEART: Tachycardia, regular rhythm.? NEURO: ?Alert and oriented x3. Patient screened in triage and initial orders placed.? ?Additional care and disposition to be based upon?diagnostic testing and treatment. <Elaine Laura APRN - Last Filed: 01/25/24 13:07> Source: patient <Elaine Laura APRN - Last Filed: 01/25/24 13:07> Mode of arrival: ambulatory <Elaine Laura APRN - Last Filed: 01/25/24 13:07> Limitations: no limitations <Elaine Laura APRN - Last Filed: 01/25/24 13:07> History of Present Illness HPI Narrative: [age] old female presents emergency department for evaluation for worsening shortness of breath possible underlying threatened miscarriage. <Luis Leger MD - Last Filed: 01/25/24 19:24> Related Data Allergies/Adverse Reactions: Allergies Allergy/AdvReac Type Severity Reaction Status Date / Time No Known Allergies Allergy Verified 01/25/24 15:21 <Elaine Laura APRN - Last Filed: 01/25/24 13:07> Review of Systems Review of Systems: All systems reviewed & are unremarkable except as noted in HPI and below <Luis Leger MD - Last Filed: 01/25/24 19:24> PMFSH Past Medical History Medical History: Medical History Anxiety Depression Epilepsy Obesity <Elaine Laura APRN - Last Filed: 01/25/24 13:07> Surgical History Surgical History: Surgical History No significant past surgical history <Elaine Laura APRN - Last Filed: 01/25/24 13:07> Family History Family History: Family History Father Cerebrovascular accident Mother , Motorcycle accident Unknown family medical history Epilepsy <Elaine Laura APRN - Last Filed: 01/25/24 13:07> Social History Social History: Social History Smoking status: Former smoker Tobacco type: e-cigarettes/vaping Second hand tobacco smoke exposure: No Smoking end date: 09/27/21 Alcohol intake: former Substance use: never Do You Feel Safe in your Home?: No Lack of Transportation: No Lack of Food: Never True Current Housing: I Have Housing Concerned About Future Housing: No Difficulty Paying Gas/Electric Bills: No Difficulty Paying for Meds: No Currently Unemployed: No Education: High School Diploma/GED Difficulty w/ Childcare or Family Care: No Living arrangements: with family Occupation/Education: occupation Gender identity (if verbalized by the patient): Female Sexual Orientation (if Verbalized by the Patient): Straight or Heterosexual Spiritual care concerns: No <Elaine Laura APRN - Last Filed: 01/25/24 13:07> E
--- NOTE | 2024-01-25 12:56 | ECG_ITS ---
Test Date: 2024-01-25 12:58:31 Measurements Intervals [place] Rate: 108 P: 39 PA: 127 QRS: 68 QRSD: 94 T: 22 QT: 315 QTc: 423 Interpretive Statements SINUS TACHYCARDIA MINIMAL Q WAVES- ANTEROLAT/INF LEADS BASELINE ARTIFACT- AVL ABNORMAL ECG No previous ECG available for comparison Electronically Signed On 01-25-2024 13:20:44 CDT by Guero Perez D.O.
[2024-01-25 13:14] LABS: Basophils Absolute Auto 0.1 K/mm3 (0.0-0.1); Basophils Percent Auto 0.5 % (0.2-1.2); Eosinophils Absolute Auto 0.3 K/mm3 (0-0.3); Eosinophils Percent Auto 2.7 % (0-4.4); Hematocrit 42.7 % (37.0-47.0); Hemoglobin 14.6 g/dL (12.0-15.0); Immature Granulocyte Absolute 0.05 K/mm3 (0.00-0.031); Immature Granulocyte Percent A 0.4 % (0-0.5); Lymphocytes Absolute Auto 3.54 K/mm3 (0.9-3.2); Lymphocytes Percent Auto 29.3 % (18.3-44.2); Mean Corpuscular HGB Conc 34.2 g/dl (32-36); Mean Corpuscular Hemoglobin 31.6 pg (26-34); Mean Corpuscular Volume 92.4 fl (80-100); Mean Platelet Volume 10.6 fl (7.4-10.4); Monocytes Absolute Auto 0.6 K/mm3 (0.1-0.6); Neutrophils Absolute Auto 7.5 K/mm3 (1.3-6.7); Neutrophils Percent Auto 62.1 % (45.5-73.1); Platelet Count Result 246 k/mm3 (150-375); Red Blood Count 4.62 M/mm3 (4.2-5.4); Red Cell Distribution Width 14.1 % (11.5-14.5); White Blood Count 12.1 K/mm3 (4.5-10.0)
[2024-01-25 13:24] LABS: INR 0.9; Partial Thromboplastin Time 25.5 Seconds (22.3-36.8); Prothrombin Time 12.5 Seconds (11.1-14.7)
[2024-01-25 13:27] LABS: Alanine Aminotransferase 41 U/L (6-35); Albumin Level 4.1 g/dL (3.5-5.1); Alkaline Phosphatase 75 U/L (38-126); Anion Gap 7 mmol/L (4-12); Aspartate Amino Transferase 33 U/L (14-36); Bilirubin,Total 0.3 mg/dL (0.2-1.3); Blood Urea Nitrogen 17 mg/dL (7-17); Carbon Dioxide 28 mmol/L (22-30); Chloride 99 mmol/L (98-107); Estimated CRCL calculation 114 ml/min; Estimated Glomerular Filt Rate > 60; Glucose 76 mg/dL (65-110); Potassium 4.1 mmol/L (3.4-5.0); Sodium 134 mmol/L (137-145)
[2024-01-25 13:31] LABS: D Dimer 1.17 ug/mL (<0.48)
[2024-01-25 13:40] LABS: Troponin I < 0.012 ng/mL (0.000-0.034)
[2024-01-25 13:44] LABS: Beta HCG Quantitative 2.78 mIU/ML
[2024-01-25 14:42] LABS: BEDSIDEPREGUCG Negative (Negative)
[2024-01-25 14:45] VITALS: BP 110/70; PULSE 103; RESP 14; O2SAT 100
[2024-01-25 14:46] VITALS: O2SAT 100
[2024-01-25 14:53] LABS: Add Urine Microscopic? YES; Appearance Urine Clear (Clear); Bacteria Urine 1+ /hpf; Bilirubin Urine Negative (Negative); Blood Urine 1+ (Negative); Color Urine Yellow (Yellow); Glucose Urine UA Negative (Negative); Ketones Urine Negative (Negative); Leukocyte Esterase Ur Trace LEU/UL (Negative); Nitrate Urine Negative (Negative); Non Pathogenic Casts 0-2; Protein Urine Negative (Negative); RBC Urine 0-2 /hpf (0-2); Specific Grav Ur 1.022 (1.001-1.035); Squamous Epithelial Cell Urine Few /hpf (Few); Urobilinogen Urine 0.2 mg/dL (<2.0); pH Urine 5.5 (5.0-9.0)
[2024-01-25] MEDS: IBUPROFEN 600 MG TABLET PO (15:18)
[2024-01-25] MEDS: SODIUM CHLORIDE 0.9% IV 1,000 ML 999 ML IV CONT (15:19)
[2024-01-25 16:15] LABS: Influenza A QL RT-PCR Negative (Negative); Influenza B QL RT-PCR Negative (Negative); RSV RNA, RT-PCR Negative (Negative); SARS-CoV-2 RNA PCR Negative (Negative)
[2024-01-25 17:14] VITALS: BP 100/67; PULSE 102; RESP 20; O2SAT 100
== END 2024-01-25 17:16 | disposition home or self-care (01) ==
PROVIDERS: Registered Nurse; Emergency Provider Emergency Medicine; PCP Hospitalist
DX: R06.00 Dyspnea, unspecified (principal); Z20.822 Contact with and (suspected) exposure to COVID-19; Z87.59 Personal history of other complications of pregnancy, childbirth and the puerperium; G40.909 Epilepsy, unspecified, not intractable, without status epilepticus; E66.9 Obesity, unspecified; Z68.37 Body mass index [BMI] 37.0-37.9, adult; Z87.891 Personal history of nicotine dependence
CPT/HCPCS: 36415; 71275; 80053; 81001; 81025; 84484; 84702; 85025; 85380; 85610; 85730; 87077; 87086; 87088; 87186; 87637; 93005; 96360; 99284; A9270; J7030; Q9967

== ENCOUNTER 2024-05-18 18:35 | Emergency (ER) | payer OTHER, SELFPAY ==
[2024-05-18 18:43] VITALS: BP 109/74; PULSE 116; RESP 18; TEMP 36.5; O2SAT 100
--- NOTE | 2024-05-18 19:03 | ED.GENADULT ---
HPI - General Adult General Chief complaint: Upper Respiratory Infection Stated complaint: fever/ Chills / expose to COVID Source: patient Mode of arrival: ambulatory Limitations: no limitations History of Present Illness HPI narrative: Patient presents for evaluation of sick symptoms for last 4 days. Symptoms include fever, sinus congestion, throat irritation, body aches, headache, nausea and diarrhea. She denies any cough or shortness of breath. Her children also have experienced a fever. She has been taking tylenol for her symptoms. 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 She does vape. Related Data Home Medications ?Medication ?Instructions ?Recorded ?Confirmed ?Last Taken ?Type citalopram 10 mg tablet mg 05/18/24 Unknown History dextroamphetamine-amphetamine 10 05/18/24 Unknown History mg tablet dextroamphetamine-amphetamine ER PO 05/18/24 Unknown History 30 mg 24hr capsule,extend release Allergies Allergy/AdvReac Type Severity Reaction Status Date / Time No Known Allergies Allergy Verified 05/18/24 18:43 Review of Systems Review of Systems: CONSTITUTIONAL: Reports fever. Denies chills, or sweats. EYES: Denies visual changes, redness, or discharge. ENT: reports sinus congestion, postnasal drainage, throat irritation CARDIOVASCULAR: Denies chest pain, palpitations, or edema. RESPIRATORY: Denies cough or dyspnea. GASTROINTESTINAL: reports nausea and diarrhea. Denies abdominal pain GENITOURINARY: Denies dysuria or hematuria. SKIN: Denies rash or itching. MUSCULOSKELETAL: Reports generalized body aches NEUROLOGIC: Reports headache. Denies numbness, dizziness, or weakness. PSYCHIATRIC: Denies anxiety or depression. [facility] Past Medical History Medical History Epilepsy Obesity Anxiety Depression Surgical History Surgical History No significant past surgical history Family History Family History Father Cerebrovascular accident Mother , Motorcycle accident Unknown family medical history Epilepsy Social History Social History Smoking status: Current every day smoker Tobacco type: e-cigarettes/vaping Second hand tobacco smoke exposure: No Smoking end date: 09/27/21 Alcohol intake: former Substance use: never Do You Feel Safe in your Home?: No Lack of Transportation: No Lack of Food: Never True Current Housing: I Have Housing Concerned About Future Housing: No Difficulty Paying Gas/Electric Bills: No Difficulty Paying for Meds: No Currently Unemployed: No Education: High School Diploma/GED Difficulty w/ Childcare or Family Care: No Living arrangements: with family Occupation/Education: occupation Gender identity (if verbalized by the patient): Female Sexual Orientation (if Verbalized by the Patient): Straight or Heterosexual Spiritual care concerns: No Exam Narrative: GENERAL: Well-appearing, well-nourished, and in no acute distress. HEAD: Normocephalic, atraumatic. EYES: PERRLA and EOMI. ENT: Nares clear, no rhinorrhea or epistaxis. Mucous membranes moist. Oropharynx without tonsillar hypertrophy exudate or other lesions. Bilateral TMs pearly nash nonbulging NECK: Supple. No adenopathy or masses. No carotid bruits or JVD CHEST: Clear to auscultation. No respiratory distress. No wheezes rales or rhonchi HEART: Regular rate and rhythm. No murmur heard. Normal peripheral pulses. ABDOMEN: Soft, nontender, nondistended, normal active bowel sounds. EXTREMITIES: Normal range of motion. No edema. SKIN: Warm, dry, no rash. NEURO: No focal deficits. Alert and oriented x3. PSYCH: Normal mood and affect. Course Course Emergency Course: This is a 24-year-old female who presented for evaluation of sick symptoms. COVID and influenza negative. Strep positive. Will treat with amoxicillin. Increase hydration. OTC agents for symptom management. Follow up with primary provider. Go to the ER for worsening symptoms. Pt in agreement with plan of care. Level of Care: Express Care Visit Vital Signs Vital signs: Vital Signs Temperature 36.5 C 05/18/24 18:43 Pulse Rate 116 H 05/18/24 18:43 Respiratory Rate 18 05/18/24 18:43 Blood Pressure 109/74 05/18/24 18:43 Pulse Oximetry 100 05/18/24 18:43 Oxygen Delivery Room Air 05/18/24 18:43 Temperature 36.5 C 05/18/24 18:43 Pulse Rate 116 H 05/18/24 18:43 Respiratory Rate 18 05/18/24 18:43 Blood Pressure 109/74 05/18/24 18:43 Pulse Oximetry 100 05/18/24 18:43 Oxygen Delivery Room Air 05/18/24 18:43 Medical Decision Making Vital Signs Vital Signs: Vital Signs Temperature 36.5 C 05/18/24 18:43 Pulse Rate 116 H 05/18/24 18:43 Respiratory Rate 18 05/18/24 18:43 Blood Pressure 109/74 05/18/24 18:43 Pulse Oximetry 100 05/18/24 18:43 Oxygen Delivery Room Air 05/18/24 18:43 Temperature 36.5 C 05/18/24 18:43 Pulse Rate 116 H 05/18/24 18:43 Respiratory Rate 18 05/18/24 18:43 Blood Pressure 109/74 05/18/24 18:43 Pulse Oximetry 100 05/18/24 18:43 Oxygen Delivery Room Air 05/18/24 18:43 Lab Data Labs: Lab Results 05/18/24 05/18/24 Range/Units 19:11 19:13 POC Influenza A Ag Negative (Negative) POC Influenza B Ag Negative (Negative) POC SARS CoV-2 Ag Negative (Negative) POC Grp A Strep Screen Positive (Negative) Discharge Plan Discharge Clinical Impression: Strep throat Patient Disposition: Home, Self-Care Condition: Stable Instructions: Antibiotic Form, Strep Throat (DC) Patient Language: Polish Prescriptions: New amoxicillin 500 mg tablet 500 mg PO Q12H Qty: 20 0RF No Action (DME) Aerochamber MV Spacer See Rx Instructions .Route Qty: 1 0RF Rx Instructions: As directed citalopram 10 mg tablet dextroamphetamine-amphetamine 10 mg tablet dextroamphetamine-amphetamine 30 mg capsule,extended release 24hr PO Follow-up/Referrals: Gregorio,MD Duy [Primary Care Provider] - Stand Alone Forms: Work/School Release IP Time of Disposition: 19:18
[2024-05-18 19:12] LABS: EDCOVIDSCREEN Negative (Negative); EDINFLUASCREEN Negative (Negative); EDINFLUBSCREEN Negative (Negative)
[2024-05-18 19:15] LABS: EDSTREPNEGPOS1 Positive (Negative)
== END 2024-05-18 19:22 | disposition home or self-care (01) ==
PROVIDERS: Emergency Provider Nurse Practitioner; PCP Hospitalist
DX: J02.0 Streptococcal pharyngitis (principal); F17.290 Nicotine dependence, other tobacco product, uncomplicated; Z79.899 Other long term (current) drug therapy; Z20.822 Contact with and (suspected) exposure to COVID-19
CPT/HCPCS: 87426; 87804; 87880; 99213; G0463

== ENCOUNTER 2024-07-19 11:39 | Emergency (ER) | payer OTHER, SELFPAY ==
[2024-07-19 11:47] VITALS: BP 122/99; PULSE 102; RESP 16; TEMP 36.4; O2SAT 100
--- OUTSIDE RECORDS SUMMARY | 2024-07-19 13:19 | XMS_ITS | Clinical Summary ---
Author Organization [address] Address [address] [place] [id number] Care Team Providers Care Feed Miller Name Role Phone Duy Perkins MD Primary Care Provider [phone] Allergies No known active allergies Medications citalopram (CeleXA) 40 mg tabletIndications :Moderate episode of recurrent major depressive disorder (HCC) Take 1 tablet (40 mg total) by mouth daily 4 Active dextroamphetamine -amphetamine (AdderalL) 10 mg tabletIndications :Attention deficit hyperactivity disorder (ADHD), combined type Take 1 tablet (10 mg total) by mouth daily after lunch 30 tablet 5 07/28/19 25 Active dextroamphetamine -amphetamine XR (ADDERALL XR) 30 mg 24 hr capsule Take 1 capsule (30 mg total) by mouth every morning 30 capsule 5 Active dextroamphetamine -amphetamine (AdderalL) 10 mg tabletIndications :Attention deficit hyperactivity disorder (ADHD), combined type Take 1 tablet (10 mg total) by mouth daily after lunch 30 tablet 5 06/25/19 25 Discontinu ed(Reorder ) dextroamphetamine -amphetamine XR (ADDERALL XR) 30 mg 24 hr capsule Take 1 capsule (30 mg total) by mouth every morning 30 capsule 5 07/04/19 25 Discontinu ed(Reorder ) Active Problems Problem Noted Date Diagnosed Date Attention deficit hyperactiv ity disorder (ADHD), combined type 08/20/2022 Assessment & Plan (02/26/2024 11:56 AM CDT): Chronic, stable Seeing good results with current regimen Continue Adderall XR 30 mg in AM and Adderall 10 mg after lunch Assessment & Plan (12/16/2023 9:08 AM CDT): Chronic, generally stable Continue Adderall XR 30 mg in AM and Adderall 5 mg after lunch Follow up 2 months Assessment & Plan (09/15/2023 1:14 PM CDT): Not well controlled, patient previously started on Vyvanse; however reports no relief with medications; medication discontinued due to Would like to retry medications Will start Adderall 10 mg, taper to provide relief of symptoms Assessment & Plan (08/20/2022 10:05 AM CDT): Not well controlled, worsening symptoms; patient reports past diagnosis, though also has comorbid depression and anxiety; previously treated for depression anxiety; patient reports no improvements with ADHD symptoms Patient meets criteria for ADHD based upon dsm 5 guidelines Will start Vyvanse 20 mg daily Vyvanse chosen given poor availability of Adderall in community pharmacies Nicotine abuse 09/17/2021 Assessment & Plan (02/26/2024 11:56 AM CDT): Stable, continues to vape daily Assessment & Plan (08/20/2022 10:06 AM CDT): Stable, continues to vape daily Assessment & Plan (09/17/2021 7:48 AM CDT): avoid vaping-start decreasing-pay attn to need vs want. cut back every 3 days, decrease mg of nicotine also Moderate episode of recurrent major depressive d isorder 06/25/2021 Assessment & Plan (02/26/2024 11:55 AM CDT): Chronic, stable Continue Celexa 40 mg daily Assessment & Plan (12/16/2023 9:04 AM CDT): Chronic, generally stable Celexa was increased to 40 mg daily Assessment & Plan (09/15/2023 1:14 PM CDT): Stable, generally well controlled; acutely worsened ; following with gynecology for management Continue Celexa 20 mg daily Assessment & Plan (10/10/2022 2:35 PM CDT): Not well controlled, patient reports she recently began to feel emotional numbness; discontinued medications Now having worsening anxiety and depression Patient reports previously had worsening depression when on Lexapro as single therapy Will restart bupropion 150 mg daily; re-evaluate and determine if patient would benefit from addition of Lexapro in 2-4 weeks Assessment & Plan (08/20/2022 10:06 AM CDT): Stable, generally well controlled, patient reports she currently has multiple stressors, engage with nursing school, as well as 3-month-old at home Reports good relief with current medications Continue bupropion 150 mg b.i.d., Lexapro 10 mg daily Assessment & Plan (02/26/2024 11:55 AM CDT): >>ASSESSMENT AND PLAN FOR MODERATE EPISODE OF RECURRENT MAJOR DEPRESSIVE DISORDER (HCC) WRITTEN ON 09/17/2021 7:36 AM BY CARLOS TALLEY NP Continue on current meds at this time with expectation of being switched when you see LINER INSTALLER. >>ASSESSMENT AND PLAN FOR MIXED ANXIETY AND DEPRESSIVE DISORDER WRITTEN ON 09/17/2021 7:36 AM BY CARLOS TALLEY NP Continue on current meds at this time with expectation of being switched when you see LINER INSTALLER. Assessment & Plan (02/26/2024 11:55 AM CDT): >>ASSESSMENT AND PLAN FOR MODERATE EPISODE OF RECURRENT MAJOR DEPRESSIVE DISORDER (HCC) WRITTEN ON 08/12/2021 7:30 AM BY CARLOS TALLEY NP Patient reiterated no suicidal thoughts at this time; take medication as directed; contact 911 and go to the ER if becomes suicidal; discussed side effects of medication with patient; encouraged healthy diet and exericise; encouraged patient to see a counselor HPI: Condition is stable A&P: Discussed/ordered labs, encouraged healthy, low carbohydrate lifestyle and at least 150min/week of exercise, continue on escitalopram 10 mg daily, increase the bupropion SR to 150 mg twice daily Stop hourly and focus I would like you to work on biofeedback. You can download an mj on your phone. Examples would be headspace, calm. Please work on this every day. It is similar to if you were a musician with a big performance coming up. You would practice your instrument every day so that on the day of the big performance, you don't even have to think about playing. This works the same way for using the biofeedback to bring you down from those high stress/anxiety moments. If you practice using the biofeedback skills daily, it will become a second nature and you will be able to help yourself more effectively. >>ASSESSMENT AND PLAN FOR MIXED ANXIETY AND DEPRESSIVE DISORDER WRITTEN ON 08/12/2021 7:30 AM BY CARLOS TALLEY NP Patient reiterated no suicidal thoughts at this time; take medication as directed; contact 911 and go to the ER if becomes suicidal; discussed side effects of medication with patient; encouraged healthy diet and exericise; encouraged patient to see a counselor HPI: Condition is stable A&P: Discussed/ordered labs, encouraged healthy, low carbohydrate lifestyle and at least 150min/week of exercise, continue on escitalopram 10 mg daily, increase the bupropion SR to 150 mg twice daily Stop hourly and focus I would like you to work on biofeedback. You can download an mj on your phone. Examples would be headspace, calm. Please work on this every day. It is similar to if you were a musician with a big performance coming up. You would practice your instrument every day so that on the day of the big performance, you don't even have to think about playing. This works the same way for using the biofeedback to bring you down from those high stress/anxiety moments. If you practice using the biofeedback skills daily, it will become a second nature and you will be able to help yourself more effectively. Assessment & Plan (02/26/2024 11:55 AM CDT): >>ASSESSMENT AND PLAN FOR MODERATE EPISODE OF RECURRENT MAJOR DEPRESSIVE DISORDER (HCC) WRITTEN ON 06/25/2021 2:20 PM BY CARLOS TALLEY NP Patient reiterated no suicidal thoughts at this time; take medication as directed; contact 911 and go to the ER if becomes suicidal; discussed side effects of medication with patient; encouraged healthy diet and exericise; encouraged patient to see a counselor HPI: Condition is not at/near goal Patient has not been taking her medications for the last month because she did not have a primary care doctor. Reports she was only taking the bupropion 150mg once daily, instead of twice daily. Patient using condoms as control method. A&P: Discussed/ordered labs, encouraged healthy, low carbohydrate lifestyle and at least 150min/week of exercise, continue on bupropion 150mg once daily and escitalopram 10mg daily. Recommended seeing a counselor and list given. I would like you to work on biofeedback. You can download an mj on your phone. Examples would be headspace, calm, [id number], Personal Josué. Please work on this every day. It is similar to if you were a musician with a big performance coming up. You would practice your instrument every day so that on the day of the big performance, you don't even have to think about playing. This works the same way for using the biofeedback to bring you down from those high stress/anxiety moments. If you practice using the biofeedback skills daily, it will become a second nature and you will be able to help yourself more effectively. >>ASSESSMENT AND PLAN FOR MIXED ANXIETY AND DEPRESSIVE DISORDER WRITTEN ON 06/25/2021 2:20 PM BY CARLOS TALLEY NP Patient reiterated no suicidal thoughts at this time; take medication as directed; contact 911 and go to the ER if becomes suicidal; discussed side effects of medication with patient; encouraged healthy diet and exericise; encouraged patient to see a counselor HPI: Condition is not at/near goal Patient has not been taking her medications for the last month because she did not have a primary care doctor. Reports she was only taking the bupropion 150mg once daily, instead of twice daily. Patient using condoms as control method. A&P: Discussed/ordered labs, encouraged healthy, low carbohydrate lifestyle and at least 150min/week of exercise, continue on bupropion 150mg once daily and escitalopram 10mg daily. Recommended seeing a counselor and list given. I would like you to work on biofeedback. You can download an mj on your phone. Examples would be headspace, calm, [id number], Personal Josué. Please work on this every day. It is similar to if you were a musician with a big performance coming up. You would practice your instrument every day so that on the day of the big performance, you don't even have to think about playing. This works the same way for using the biofeedback to bring you down from those high stress/anxiety moments. If you practice using the biofeedback skills daily, it will become a second nature and you will be able to help yourself more effectively. PTSD (post-traumatic stress disorder) 06/25/2021 Assessment & Plan (08/12/2021 7:30 AM CDT): Patient reiterated no suicidal thoughts at this time; take medication as directed; contact 911 and go to the ER if becomes suicidal; discussed side effects of medication with patient; encouraged healthy diet and exericise; encouraged patient to see a counselor HPI: Condition is stable A&P: Discussed/ordered labs, encouraged healthy, low carbohydrate lifestyle and at least 150min/week of exercise, continue on escitalopram 10 mg daily, increase the bupropion SR to 150 mg twice daily Stop hourly and focus I would like you to work on biofeedback. You can download an mj on your phone. Examples would be headspace, calm. Please work on this every day. It is similar to if you were a musician with a big performance coming up. You would practice your instrument every day so that on the day of the big performance, you don't even have to think about playing. This works the same way for using the biofeedback to bring you down from those high stress/anxiety moments. If you practice using the biofeedback skills daily, it will become a second nature and you will be able to help yourself more effectively. Assessment & Plan (06/25/2021 2:19 PM [facility] PSYCHI[facility]): Patient reiterated no suicidal thoughts at this time; take medication as directed; contact 911 and go to the ER if becomes suicidal; discussed side effects of medication with patient; encouraged healthy diet and exericise; encouraged patient to see a counselor HPI: Condition is not at/near goal Patient has not been taking her medications for the last month because she did not have a primary care doctor. Reports she was only taking the bupropion 150mg once daily, instead of twice daily. Patient using condoms as control method. A&P: Discussed/ordered labs, encouraged healthy, low carbohydrate lifestyle and at least 150min/week of exercise, continue on bupropion 150mg once daily and escitalopram 10mg daily. Recommended seeing a counselor and list given. I would like you to work on biofeedback. You can download an mj on your phone. Examples would be headspace, calm, [id number], Personal Josué. Please work on this every day. It is similar to if you were a musician with a big performance coming up. You would practice your instrument every day so that on the day of the big performance, you don't even have to think about playing. This works the same way for using the biofeedback to bring you down from those high stress/anxiety moments. If you practice using the biofeedback skills daily, it will become a second nature and you will be able to help yourself more effectively. Class 2 obesity due to exces s calories without serious comorbidity with body mass index (BMI) of 36.0 to 36.9 in adult 06/25/2021 Assessment & Plan (08/20/2022 10:07 AM CDT): Patient has elevated weight; 3 months Encouraged patient continue to work on dietary changes including decrease portions, regular physical activity, targeting 30 minutes moderate intensity exercise 5 days per week Assessment & Plan (09/17/2021 7:37 AM CDT): HPI: Condition is stable goal BMI <30 A&P: Healthy, high-protein, lower carbohydrate, lower fat lifestyle and exercise for 150min/week recommended Recommend tracking everything you put in your mouth on an mj like [employer] Lower carb substitutions: [employer] carries a zero net carb bread If you are looking for whole potatoes, like to use in soup or new potato shape/flavor, radishes are a great replacement If you are looking for mashed potatoes, riced cauliflower in the frozen bag section are a great replacement For pasta, try using zucchini noodles, lay them out on a cookie sheet and pat dry with a tea towel to try to remove as much moisture as possible. Heat your pasta sauce on the stove and put the noodles in for 30-45 seconds. If you leave them in much longer they will become mushy Echo and/or coconut flour instead of regular flour For pizza dough, try fathead pizza dough recipe online. To get a crispy crust, bake on one side for 8-12 min, then flip over and bake on the other side for 8-12 min, then put toppings on and bake until the cheese on top of pizza melts chaffles recipe online For ice cream, try the brand Enlightened To replace coffee creamer and make it low carb, use heavy creamer with sugar free Torani sweetener For chips, try Whisps or pork rinds For yogurt, try [employer] [place] yogurt Use Pinterest for recipe ideas. Type in low carb... Hand Measurements: A fist or cupped hand = 1 cup 1 cup = 1 -2 servings of fruit juice 1 oz. of cold cereal 2 oz. of cooked cereal, rice or pasta 8 oz. of milk or yogurt A thumb = 1 oz. of cheese Consuming low-fat cheese helps you meet the required servings from the milk, yogurt and cheese group. 1 oz. of low-fat cheese counts as 8 oz. of milk or yogurt. Handful = 1-2 oz. of snack food Thumb tip = 1 teaspoon Keep high-fat foods, such as peanut butter and mayonnaise, at a minimum. One teaspoon is equal to the end of your thumb, from the knuckle up. Three teaspoons equals 1 tablespoon. Palm = 3 oz. of meat Choose lean poultry, fish, shellfish and beef. One palm size portion equals 3 oz. for an adult and 1 -2 oz. for a child under 5. 1 tennis ball or a fist= 1/2 cup of fruit and vegetables Healthy diets include a variety of colorful fruits and vegetables every day. The secret to serving size is in your hand. Snacking can add up. Remember, 1 handful equals 1 oz. of nuts and small candies. For chips and pretzels, 2 handfuls equals 1 oz. Because hand sizes vary, compare your fist size to an actual measuring cup. Assessment & Plan (08/12/2021 6:31 AM CDT): HPI: Condition is stable goal BMI <30 A&P: Healthy, high-protein, lower carbohydrate, lower fat lifestyle and exercise for 150min/week recommended Substitutions: Recommend tracking everything you put in your mouth on an mj like [employer] or [employer] carries a zero net carb bread If you are looking for whole potatoes, like to use in soup or new potato shape/flavor, radishes are a great replacement If you are looking for mashed potatoes, riced cauliflower in the frozen bag section are a great replacement For pasta, try using zucchini noodles, lay them out on a cookie sheet and pat dry with a tea towel to try to remove as much moisture as possible. Heat your pasta sauce on the stove and put the noodles in for 30-45 seconds. If you leave them in much longer they will become mushy Echo and/or coconut flour instead of regular flour For pizza dough, try fathead pizza dough recipe online. To get a crispy crust, bake on one side for 8-12 min, then flip over and bake on the other side for 8-12 min, then put toppings on and bake until the cheese on top of pizza melts chaffles recipe online For ice cream, try the brand Enlightened To replace coffee creamer and make it low carb, use heavy creamer with sugar free Torani sweetener For chips, try Whisps or pork rinds For yogurt, try [employer] [place] yogurt Use [place] for recipe ideas. Type in low carb... Assessment & Plan (06/25/2021 2:08 PM [facility]EN[facility] PSYCHIATRIST): HPI: Condition is stable goal BMI <30 A&P: Healthy, high-protein, lower carbohydrate, lower fat lifestyle and exercise for 150min/week recommended Substitutions: Recommend tracking everything you put in your mouth on an mj like [employer]fitnesspal or [employer] carries a zero net carb bread If you are looking for whole potatoes, like to use in soup or new potato shape/flavor, radishes are a great replacement If you are looking for mashed potatoes, riced cauliflower in the frozen bag section are a great replacement For pasta, try using zucchini noodles, lay them out on a cookie sheet and pat dry with a tea towel to try to remove as much moisture as possible. Heat your pasta sauce on the stove and put the noodles in for 30-45 seconds. If you leave them in much longer they will become mushy Echo and/or coconut flour instead of regular flour For pizza dough, try fathead pizza dough recipe online. To get a crispy crust, bake on one side for 8-12 min, then flip over and bake on the other side for 8-12 min, then put toppings on and bake until the cheese on top of pizza melts chaffles recipe online For ice cream, try the brand Enlightened To replace coffee creamer and make it low carb, use heavy creamer with sugar free Torani sweetener For chips, try Whisps or pork rinds For yogurt, try Two [employer] [place] yogurt Use Pinterest for recipe ideas. Type in low carb... Functional diarrhea 06/25/2021 Assessment & Plan (08/12/2021 7:34 AM CDT): Please start taking probiotic 20-50billion CFU daily assisted. This will help maintain the good bacteria that is in your gut. Assessment & Plan (06/25/2021 2:31 PM [facility]EN[employer] PSYCHIATRIST): Please start taking probiotic 20-50billion CFU daily assisted. This will help maintain the good bacteria that is in your gut. Resolved Problems Problem Noted Date Diagnosed Date Resolved Date Generalized idiopathic epile psy, not intractable, without status epilepticus 06/25/2021 08/20/2022 Overview (06/25/2021): Last Assessment & Plan: Assessment: 17 y.o. female with PMH of seizures, now seizure free for several months. However, EEG still concerning for epilepsy, and nature of seizures (brief staring spells) raises concerns for clearing for driving. Given Dr. Woods's history with patient, would suggest following up with him to further address this Plan: - call office to schedule appointment with Dr. Woods - No driving until being cleared by Neurology - Notify Dept for any observe seizures. Assessment & Plan (09/17/2021 7:35 AM CDT): Pt has had no recent seizure activity. Last seizure about [id number]. This may make pt need to see high school sports coach/GYN. Assessment & Plan (06/25/2021 2:17 PM LOCUM [facility]EN[employer] PSYCHIATRIST): HPI: Condition is stable Patient does not take medication for this condition. A&P: Discussed/ordered labs, encouraged healthy, low carbohydrate lifestyle and at least 150min/week of exercise. Referral for neurology given. Immunizations Immunization Administration Dates Next Due HPV, Unspecified 10/31/2020,,06/28/2015,06/28/2015, 9,1999 Influenza, Unspecified 02/26/2024(Deferr ed: Patient Refused),09/15/2023(Deferred: Patient Refused),02/08/2023(Deferred: Patient Refused),02/08/2023(Deferred: Patient Refused),10/10/2022(Deferred: Patient Refused),02/08/2022(Deferred: Patient Refused),01/09/2022(Deferred: Patient Refused),09/17/2021(Deferred: Patient Refused),08/12/2021(Deferred: Patient Refused),06/25/2021(Deferred: Patient Refused),02/08/2021(Deferred: Patient Refused),01/09/2021(Deferred: Patient Refused),01/09/2021(Deferred: Patient Refused),02/09/2020(Deferred: Patient Refused),01/10/2020(Deferred: Patient Refused),01/10/2020(Deferred: Patient Refused) Medical History Medical History Date Comments Depression Anxiety Seizures (HCC) PTSD (post-traumatic stress disorder) Generalized idiopathic epile psy, not intractable, without status epilepticus (HCC) 06/25/2021 Last Assessment & Plan: Assjason ssment: 17 y.o. female with PMH of seizures, now seizure free for several months. However, EEG still concerning for epilepsy, and nature of seizures (brief staring spells) raises concerns for clearing for driving. Given Dr. Woods's history with patient, would suggest following up with him to further address this Plan: - call office to schedule appointment with Dr. Nieves 06/10/2023 towards the end of Family History Medical History Relation Name Comments No Known Problems Brother Heart disease Father Stroke Father No Known Problems Half-Brother 1 No Known Problems Half-Brother 2 Anemia Mother Cancer Mother Relation Name Status Comments Brother Alive Father Half-Brother 1 Alive Half-Brother 2 Alive Mother Social History Tobacco Use Types Packs/Day Years Used Date Smoking Tobacco: Former Vaping S tarted: 05/11/2017 Smokeless Tobacco: Never Tobacco Cessation:Counseling Given: Not Answered Humiliation, Afraid, Rape, and Kick questionnair e Answer Date Recorded Within the last year, have y ou been afraid of your partner or ex-partner? No 08/20/2022 Within the last year, have y ou been humiliated or emotionally abused in other ways by your partner or ex-partner? No Within the last year, have y ou been kicked, hit, slapped, or otherwise physically hurt by your partner or ex-partner? No 08/20/2022 Within the last year, have y ou been raped or forced to have any kind of sexual activity by your partner or ex-partner? No 08/20/2022 Social Connection and Isolat ion Panel [NHANES] Answer Date Recorded In a typical week, how many times do you talk on the phone with family, friends, or neighbors? Three times a week 08/20/2022 How often do you get togethe r with friends or relatives? Three times a week 08/20/2022 How often do you attend [facility] or confucianist services? More than 4 times per year 08/20/2022 Do you belong to any clubs o r organizations such as pentecostal groups, unions, fraternal or athletic groups, or school groups? No 08/20/2022 How often do you attend meet ings of the clubs or organizations you belong to? Never 08/20/2022 Are you , , di vorced, , never , or living with a partner? 08/20/2022 AUDIT-C Answer Date Recorded Q1: How often do you have a drink containing alc ohol? 2-4 times a month 08/20/2022 Q2: How many drinks containi ng alcohol do you have on a typical day when you are drinking? 3 or 4 08/20/2022 Q3: How often do you have si x or more drinks on one occasion? Never 08/20/2022 Overall Financial Resource Strain (CARDIA) Answe r Date Recorded How hard is it for you to pa y for the very basics like food, housing, medical care, and heating? Not hard at all 08/20/2022 PHQ-2 Answer Date Recorded PHQ-2 Total Score (If total score is 3 or more points, staff should administer the PHQ-9) 6 09/15/2023 [facility] - Occupational Stress Questionnaire Answer Date Recorded Do you feel stress - tense, restless, nervous, or anxious, or unable to sleep at night because your mind is troubled all the time - these days? Rather much 08/20/2022 Exercise Vital Sign Answer Date Recorde d On average, how many days pe r week do you engage in moderate to strenuous exercise (like a brisk walk)? 0 days 08/20/2022 On average, how many minutes do you engage in exercise at this level? 0 min 08/20/2022 Hunger Vital Sign Answer Date Recorded Within the past 12 months, y ou worried that your food would run out before you got the money to buy more. Never true 08/21/19 23 Within the past 12 months, t he food you bought just didn't last and you didn't have money to get more. Never true 08/20/2022 PRAPARE - Transportation Answer Date Re corded In the past 12 months, has l ack of transportation kept you from medical appointments or from getting medications? No 08/09 In the past 12 months, has l ack of transportation kept you from meetings, work, or from getting things needed for daily living? No 08/20/2022 Housing Stability Vital Sign Answer Eduar e Recorded In the last 12 months, was t here a time when you were not able to pay the mortgage or rent on time? No 08/20/2022 In the last 12 months, how many places have you lived? 1 08/20/2022 In the last 12 months, was t here a time when you did not have a steady place to sleep or slept in a correction (including now)? No 08/20/2022 PHQ-9 Answer Date Recorded PHQ-9 Total Score 20 09/15/2023 Personal Safety Answer Date Recorded Getting School Help Needed Not on file 07/10 Comments Unknown Sex and Gender Information Value Date Recorded Sex Assigned at Not on file Legal Sex Female 2:29 AM LOCUM TENENS PSYCHIATRIST Gender Identity Female 09/16/2021 5:33 AM CDT Sexual Orientation Straight 09/16/2021 5: 33 AM CDT Obstetrics History Para Term AB IAB SAB Ectopic Multiple Livin g Live Births 1 Date Outcome GA Total Labor Labor/2nd/3rd Weight Sex Type Anes PTL Reta A1 A5 Name Clin Last Filed Vital Signs Vital Sign Reading Time Taken Comments Blood Pressure 98/66 02/26/2024 11:41 AM CDT Pulse 101 02/26/2024 11:41 AM CDT Temperature 36.4 C (97.5 F) 02/26/2024 11:41 AM CDT Respiratory Rate 16 02/26/2024 11:41 AM CDT Oxygen Saturation 97% 02/26/2024 11:41 AM CDT Inhaled Oxygen Concentration - - Weight 98.4 kg (217 lb) 09/15/2023 8:29 AM CDT Height 157.5 cm (5' 2.01 ) 02/26/2024 11:41 AM C DT Body Mass Index 39.68 09/15/2023 8:29 AM CDT Plan of Treatment Health Maintenance Due Date Last Done Comments DTaP/Tdap/Td Vaccine (1 - Tdap) 2010 Varicella Vaccines (1 of 2 - 13+ 2-dose series) 2012 HPV Vaccines (3 - 3-dose series) 01/23/2021 10/31/2020, 10/31/2020, 06/28/2015, Additional history exists Cervical Cancer Screening 10/31/2021 10/31/2020 Regular Well Visit/Exam 18-64 11/03/2021 11/03/2020 Covid-19 Vaccine ( season) 2024 07/01/2021 Depression Screening 09/14/2024 09/15/2023, 09/15/2023, 11/14/2022, Additional history exists Influenza Vaccine (#1) 2024 Postp oned from 01/10/2024 (Patient declined, but will receive in the future) Hepatitis B Screening Completed 09/15/2023 Hepatitis C Screening Completed 09/15/2023 Pneumococcal vaccine <65 Aged Out No longer eligible based on patient's age to complete this topic Procedures Procedure Name Priority Date/Time Associated Diagnosis Comments HEPATITIS C ANTIBODY Routine 09/15/2023 9:19 AM CDT Encounter for hepatitis C screening test for low risk patient PAP AND HIGH RISK HPV, REFLEX TO GENOTYPING Routine 10/31/2020 from Last 3 Months or Most Recently Relevant to Health Maintenance Results * Hepatitis C antibody Blood (09/15/2023 9:19 AM CDT) Hep C Ab Nonreactive Nonreactive Comment: Interpretive Data Nonreactive: Antibodies to HCV not detected. Does NOT exclude the possibility of recent exposure to HCV. Equivocal: Equivocal for HCV antibodies. Supplemental molecular testing will be automatically performed to determine infection status in accordance with current CDC screening recommendations. Reactive: Positive for HCV antibodies. This may represent current or past HCV infection. Supplemental molecular testing will be automatically performed to determine current infection status in accordance with current CDC screening recommendations. Interpretive data was last revised on 2019. Testing performed by: [facility], [id number] [place] [address], [place]., [address] Blood 09/15/2023 9:19 AM CDT 09/15/2023 2:07 PM CDT us Duy Perkins MD LAB MICROBIOLOGY - GENERA L ORDERABLES Edited Result - Final [facility] ([place]) [facility] Department [place] [address] * Pap and High Risk HPV, reflex to Genotyping (10/31/2020) Thin prep 10/31/2020 Narrative Kirsten Carbajal MA - 10/31/2020 Copy of results sent to scanning to be uploaded into chart us Historical Provider LAB CYTOLOGY ORDERABLES F inal Result from Last 3 Months or Most Recently Relevant to Health Maintenance Insurance Care Teams Feed Miller Relationship Specialty Start Date End Date Duy Perkins MD [place] [address] PCP - General Family Medicine 08/20/22
--- OUTSIDE RECORDS SUMMARY | 2024-07-19 13:19 | XMS_ITS | Clinical Summary ---
Author Organization [facility] Address [address] [place] [address] Care Team Providers Care Photogrammetrist Name Role Phone Phil Tompkins MD Primary Care Provider [phone] Source Comments [facility],non-owned Affiliates and Associated Physician Practices is amultiple site organization consisting of ambulatory clinics and hospital sitesin [place] and [place]. This disclosure is being madepursuant to the Care Everywhere program and may not contain all information available regarding this patient. Last updated 18.[facility] Allergies No known active allergies Medications * Be aware that medications may not be up to date on this document. Alwaysverify current medications with the patient. 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 EEG with 4-5 Hz d/c's, mom had suspected RAUL. Failed many meds for side effects (keppra, depakate and lamictal), doing well on topamax 150 mg bid, seizure free as long as she is compliant, trying to switch to extended release trokendi ER today (300 mg qd). Generalized idiopathic epile psy, not intractable, without status epilepticus Assessment & Plan (03/16/2017 4:55 PM SEDIMENTATIONIST): Assessment: 17 y.o. female with PMH of [...] - Notify Dept for any observe seizures. Social History Tobacco Use Types Packs/Day Years Used Date Smoking Tobacco: Never Smokeless Tobacco: Never Alcohol Use Standard Drinks/Week Comments Not Asked 0 (1 standard drink = 0.6 oz pur e alcohol) Sex and Gender Information Value Date Recorded Sex Assigned at Not on file Gender Identity Not on file Sexual Orientation Not on file Last Filed Vital Signs Vital Sign Reading Time Taken Comments Blood Pressure 110/78 09/18/2017 12:39 PM CDT Pulse 109 09/18/2017 12:39 PM CDT Temperature 36.6 C (97.9 F) 09/18/2017 12:39 PM CDT Respiratory Rate 16 09/18/2017 12:39 PM CDT Oxygen Saturation 100% 09/18/2017 12:39 PM CDT Inhaled Oxygen Concentration - - Weight 72.2 kg (159 lb 2.8 oz) 05/19/2017 1:20 P M SEDIMENTATIONIST Height 158.3 cm (5' 2.32 ) 05/19/2017 1:20 PM CS T Body Mass Index 28.81 05/19/2017 1:20 PM SEDIMENTATIONIST Plan of Treatment Health Maintenance Due Date Last Done Comments PAP SMEAR 1999 HIV SCREENING 2014 HPV VACCINE (1 - 3-dose series) 2014 CHLAMYDIA/GONORRHEA SCREENING 2015 HEPATITIS C SCREENING 02/25/2017 DTAP/TDAP/TD VACCINES (1 - Tdap) 2018 HEPATITIS B VACCINE (1 of 3 - 19+ 3-dose series) 2018 COVID-19 VACCINE (1 - 2023-2 5 season) 2024 INFLUENZA VACCINE (#1) 2024 DEPRESSION SCREENING 05/11/2024 ZOSTER VACCINE (1 of 2) 2049 HIB VACCINE Aged Out No longer eligi ble based on patient's age to complete this topic MENINGOCOCCAL (Group B) VACCINE Aged Out No longer eligible based on patient's age to complete this topic MENINGOCOCCAL VACCINE Aged Out No odessa yuriy eligible based on patient's age to complete this topic PNEUMOCOCCAL VACCINE Aged Out No long er eligible based on patient's age to complete this topic Advance Directives Documents on File Type Date Recorded Patient Groundhand Expl anation Adv Directive/Living Will/POA 01/15/2012 10:46 AM * Full Code (Latest Code Status on File) Date Activated Date Inactivated Comments 09/14/2017 11:45 AM 09/18/2017 2:06 PM Care Teams Photogrammetrist Relationship Specialty Start Date End Date Phil Tompkins MD [address] [place] [address] PCP - General 06/09/19
--- OUTSIDE RECORDS SUMMARY | 2024-07-19 13:19 | XMS_ITS | Referral Summary ---
Author Organization [address] Address [address] [place] [id number] Care Team Providers Care Cane Packer Name Role Phone Duy Perkins MD Primary Care Provider [phone] Allergies No known active allergies Medications citalopram [...] expectation of being switched when you see POLICE CAPTAIN PRECINCT. 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 Assessment & Plan (02/26/2024 11:55 AM CDT): [...] your phone. Examples would be headspace, calm, [id number], Personal Josué. Please work on this every [...] your phone. Examples would be headspace, calm, [id number], Personal Josué. Please work on this every [...] effectively. Assessment & Plan (06/25/2021 2:19 PM CONTROLS DESIGN ENGINEER): Patient reiterated no suicidal thoughts at this [...] your phone. Examples would be headspace, calm, [id number], Personal Josué. Please work on this every [...] in your mouth on an mj like Whitetrufflepal Lower carb substitutions: Aldi carries a zero [...] in much longer they will become mushy Dudley and/or coconut flour instead of regular flour [...] pork rinds For yogurt, try Two Good austrian yogurt Use Pinterest for recipe ideas. Type [...] in your mouth on an mj like Fantasy Buzzer or two.42.solutions carries a zero net carb bread If [...] in much longer they will become mushy Dudley and/or coconut flour instead of regular flour [...] pork rinds For yogurt, try Two Good austrian yogurt Use Adelaide for recipe ideas. Type in low carb... Assessment & Plan (06/25/2021 2:08 PM CONTROLS DESIGN ENGINEER): HPI: Condition is stable goal BMI <30 [...] in much longer they will become mushy Dudley and/or coconut flour instead of regular flour [...] pork rinds For yogurt, try Two Good austrian yogurt Use Pinterest for recipe ideas. Type in low carb... 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 This will help maintain the good bacteria that is in your gut. Assessment & Plan (06/25/2021 2:31 PM CONTROLS DESIGN ENGINEER): Please start taking probiotic 20-50billion CFU daily [facility]. This will help maintain the good bacteria [...] no recent seizure activity. Last seizure about [id number]. This may make pt need to see high value associate/GYN. Assessment & Plan (06/25/2021 2:17 PM CONTROLS DESIGN ENGINEER): HPI: Condition is stable Patient does not [...] Refused),02/09/2020(Deferred: Patient Refused),01/10/2020(Deferred: Patient Refused),01/10/2020(Deferred: Patient Refused) Social History Tobacco Use Types Packs/Day Years [...] week 08/20/2022 How often do you attend chur ch or jehovah's witness services? More than 4 times per year 08/20/2022 Do you belong to any clubs o r organizations such as tenriism groups, unions, fraternal or athletic groups, or [...] staff should administer the PHQ-9) 6 09/15/2023 [facility] - Occupational Stress Questionnaire Answer Date Recorded [...] place to sleep or slept in a half-way (including now)? No 08/20/2022 PHQ-9 Answer Date Recorded PHQ-9 Total Score 20 09/15/2023 Personal Safety Answer Date Recorded Getting School Help Needed Not on file 07/10 Comments Unknown Sex and Gender Information Value Date Recorded Sex Assigned at Not on file Legal Sex Female 2:29 AM CONTROLS DESIGN ENGINEER Gender Identity Female 09/16/2021 5:33 AM CDT Sexual Orientation Straight 09/16/2021 5: 33 AM CDT Last Filed Vital Signs Vital Sign Reading [...] 09/15/2023 8:29 AM CDT Plan of Treatment Not on file Procedures Procedure Name Priority Date/Time Associated Diagnosis [...] last revised on 2019. Testing performed by: [facility], [address] [place] [address], [place]., [address] Blood 09/15/2023 9:19 AM CDT 09/15/2023 2:07 PM CDT Duy Perkins MD LAB MICROBIOLOGY - GENERA L ORDERABLES Edited Result - Final [facility] ([place]) [address] [facility] [place] [address] * Pap and High Risk HPV, reflex to Genotyping (10/31/2020) Thin prep 10/31/2020 Narrative Kirsten Carbajal MA - 10/31/2020 Copy of results sent to scanning to be uploaded into chart us Historical Provider LAB CYTOLOGY ORDERABLES F inal Result from Last 3 Months or Most Recently Relevant to Health Maintenance Insurance Care Teams Cane Packer Relationship Specialty Start Date End Date D[place] [address] PCP - General Family Medicine 08/20/22
--- OUTSIDE RECORDS SUMMARY | 2024-07-19 13:19 | XMS_ITS | Referral Summary ---
Author Organization [facility] Address [address] [place] [address] Care Team Providers Care Oil Rigger Name Role Phone Phil Tompkins MD Primary Care Provider [phone] Source Comments [facility],non-owned Affiliates and Associated Physician Practices is amultiple site organization consisting of ambulatory clinics and hospital sitesin [place], [place], [place] and [place]. This disclosure is being madepursuant to the Care Everywhere program and may not contain all information available regarding this patient. Last updated 18.[facility] Allergies No known active allergies Medications * [...] epilepticus Assessment & Plan (03/16/2017 4:55 PM ARCHITECTURAL DESIGN LECTURER): Assessment: 17 y.o. female with PMH of [...] lb 2.8 oz) 05/19/2017 1:20 P M ARCHITECTURAL DESIGN LECTURER Height 158.3 cm (5' 2.32 ) 05/19/2017 1:20 PM CS T Body Mass Index 28.81 05/19/2017 1:20 PM ARCHITECTURAL DESIGN LECTURER Functional Status Functional Status Response Date of Assess ment Is person deaf or have serious hearing difficult y? No 09/14/2017 Is person blind or have serious difficulty seein g? No 09/14/2017 Does person have serious dif ficulty walking/climbing stairs? No 09/14/2017 Does person have difficulty dressing/bathing? No 09/14/2017 Does person have difficulty doing errands alone? No 09/14/2017 Cognitive Status Response Date of Assessm ent Does person have difficulty concentrating/remembering/making decisions? No 09/14/2017 Plan of Treatment Not on file Advance Directives Documents on File Type Date Recorded Patient Vice President Of Communications Expl anation Adv Directive/Living Will/POA 01/15/2012 10:46 AM * Full Code (Latest Code Status on File) Date Activated Date Inactivated Comments 09/14/2017 11:45 AM 09/18/2017 2:06 PM Care Teams Oil Rigger Relationship Specialty Start Date End Date Phil Tompkins MD [address] [place] [address] PCP - General 06/09/19
--- OUTSIDE RECORDS SUMMARY | 2024-07-19 13:19 | XMS_ITS | Patient Health Summary ---
Author Organization [facility] Address [address] [place] [address] Care Team Providers Care Director Of Accreditation Name Role Phone Phil Tompkins MD Primary Care Provider [phone] Note from [facility],non-owned Affiliates and Associated Physician Practices is amultiple site organization consisting of ambulatory clinics and hospital sitesin [place], [place], [place] and [place]. This disclosure is being madepursuant to the Care Everywhere program and may not contain all information available regarding this patient. Last updated 18.[facility] Allergies No known active allergies Medications * Be aware that medications may not be up to date on this document. Alwaysverify current medications with the patient. 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, not intractable, without status epilepticus Social History Tobacco Use Types Packs/Day Years [...] lb 2.8 oz) 05/19/2017 1:20 P M BUS ESCORT Height 158.3 cm (5' 2.32 ) 05/19/2017 1:20 PM CS T Body Mass Index 28.81 05/19/2017 1:20 PM BUS ESCORT Procedures * CARDIAC RHYTHM STRIP ORDER(Performed 09/23/2017) * EEG EXTENDED MONITORING > 1 HOUR(Performed 09/21/2017) * COMPREHENSIVE METABOLIC PANEL(Performed 09/14/2017) * CBC W AUTO DIFFERENTIAL(Performed 09/14/2017) * EEG AWAKE AND ASLEEP(Performed 08/07/2016) Performed for Generalized idiopathic epilepsy, not intractable, without status epilepticus (HCC) * EEG AWAKE AND ASLEEP(Performed 05/17/2014) Performed for Seizure (HCC) * LAB RESULTS ORDER(Performed 05/31/2012) * IMAGING/RADIOLOGY/XRAY RESULTS ORDER(Performed 03/19/2012) * EEG(Performed 07/14/2011) Performed for Seizure (HCC) Results * CARDIAC RHYTHM STRIP ORDER (09/23/2017 4:47 AM CDT) Narrative 09/23/2017 4:47 AM CDT Ordered by an unspecified provider. Scanned Document CARDIAC SERVICES ORD ERABLES * EEG EXTENDED MONITORING > 1 HOUR (09/21/2017 2:44 PM CDT) Narrative [facility] - 09/21/2017 2:44 PM CDT Duy Bauer MD 09/21/2017 2:44 PM LONG-TERM VIDEO EEG [facility] Long-term video EEG monitoring was performed on a patient with primary generalized epilepsy for diagnosis and localization. Utilizing the [employer] recording system, EEG was recorded in standard multichannel format, and synchronized with currently recorded EKG and video by cable telemetry. Electrode placement was as per the 10/20 system of electrode placement. The record was reviewed in its entirety, utilizing both bipolar and referential montages, as appropriate. Appropriate provocations were made. The quality of the recording is good. A total of 9 hours 17 minutes was reviewed on September 14, over 23 hours on September 15 through September 17, and 12 hours on September 18, 2017. The background consists of up to ten hertz activity with a posterior dominant rhythm. The record is continuous and symmetric with good variability and reactivity. Frequent epileptiform discharges are seen. High amplitude, frontal predominant 3-4 hertz spike and wave generalized activity are noted. These typically occur in bursts of between 1 and 8 seconds. No state changes noted in the patient during these bursts, however her level of and arousal attention was not confrontationally assessed during these abnormalities. No other focal or lateralizing abnormalities are noted. Up to stage 3 sleep is noted. Sleep architecture is within normal limits. No events are noted during this period of monitoring. Automatic spike and seizure detection are unremarkable. Impression: Abnormal video EEG monitoring record of 5 days duration. Frequent generalized epileptiform abnormalities of 3-4 hertz spike and wave consistent with primary generalized epilepsy are seen. No convulsive activity or clinical seizure otherwise is noted, patient level of concentration and attention was not directly assessed during these epileptiform abnormalities. Clinical correlation therefore advised. Duy Bauer MD NEUROLOGY ORDERABLES [facility] * (ABNORMAL) CBC W AUTO DIFFERENTIAL (09/14/2017 2:27 PM CDT) WBC 11.1(H) 4.5 - 11.0 x10E9/L 09/14/2017 2:38 PM CDT [facility] WBC Corrected x10E9/L 09/14/2017 2:38 PM CDT [facility] RBC 4.60 4.10 - 5.10 x10E12/L 09/14/2017 2:38 PM CDT [facility] Hemoglobin 13.9 12.0 - 16.0 gm/dL 09/14/2017 2:38 PM CDT [facility] Hematocrit 41.7 36.0 - 47.0 % 09/14/2017 2:38 PM CDT [facility] MCV 90.7 78.0 - 102.0 fl 09/14/2017 2:38 PM CDT [facility] MCH 30.2 25.0 - 35.0 pg 09/14/2017 2:38 PM CDT [facility] MCHC 33.3 31.0 - 37.0 gm/dL 09/14/2017 2:38 PM CDT [facility] Platelet Count 212 100 - 400 x10E9/L 09/14/2017 2:38 PM CDT [facility] RDW-CV 12.9 11.5 - 14.0 % 09/14/2017 2:38 PM CDT [facility] MPV 10.3(H) 6.0 - 9.5 fl 09/14/2017 2:38 PM CDT [facility] Neutrophils % 62.3 31.0 - 78.0 % 09/14/2017 2:38 PM CDT [facility] Lymphocytes % 29.6 13.0 - 54.0 % 09/14/2017 2:38 PM CDT [facility] Monocytes % 5.8 4.0 - 13.0 % 09/14/2017 2:38 PM CDT [facility] Eosinophils % 1.7 0.0 - 8.0 % 09/14/2017 2:38 PM CDT [facility] Basophils % 0.4 % 09/14/2017 2:38 PM CDT [facility] Immature Granulocytes 0.2 % 09/14/2017 2:38 PM CDT [facility] Neutrophil Absolute 6.94 x10E9/L 09/14/2017 2:38 PM CDT [facility] Lymphocytes Absolute 3.30 x10E9/L 09/14/2017 2:38 PM CDT [facility] Monocytes Absolute 0.64 x10E9/L 09/14/2017 2:38 PM CDT [facility] Eosinophils Absolute 0.19 x10E9/L 09/14/2017 2:38 PM CDT [facility] Basophils Absolute 0.04 x10E9/L 09/14/2017 2:38 PM CDT [facility] Immature Granulocytes Absolute 0.02 x10E9/L 09/14/2017 2:38 PM CDT [facility] nRBC Auto 0 /100 WBC 09/14/2017 2:38 PM CDT [facility] Blood BLOOD SPECIMEN / Unknown Venipuncture / Unknown 09/14/2017 2:27 PM CDT 09/14/2017 2:34 PM CDT Duy Bauer MD LAB - HEMATOLOGY ORD ERABLES [facility] [address] [place] [id number] * (ABNORMAL) COMPREHENSIVE METABOLIC PANEL (09/14/2017 2:27 PM CDT) [facility] Glucose 85 74 - 106 mg/dL 09/14/2017 2:54 PM CDT [facility] Sodium 141 136 - 145 mmol/L 09/14/2017 2:54 PM CDT [facility] Potassium 3.8 3.5 - 5.1 mmol/L 09/14/2017 2:54 PM CDT [facility] Chloride 111(H) 98 - 107 mmol/L 09/14/2017 2:54 PM CDT [facility] CO2 26 20 - 28 mmol/L 09/14/2017 2:54 PM CDT [facility] Calcium 8.5 8.5 - 10.1 mg/dL 09/14/2017 2:54 PM T [facility] Anion Gap 4(L) 8 - 16 mmol/L 09/14/2017 2:54 PM CDT [facility] BUN 9 7 - 21 mg/dL 09/14/2017 2:54 PM CDT [facility] Creatinine 0.75 0.50 - 1.30 mg/dL 09/14/2017 2:54 PM T [facility] Alkaline Phosphatase 82 38 - 126 U/L 09/14/2017 2:54 PM T [facility] ALT 19 13 - 61 U/L 09/14/2017 2:54 PM T [facility] AST 15 5 - 40 U/L 09/14/2017 2:54 PM T [facility] Protein Total 6.9 6.4 - 8.2 gm/dL 09/14/2017 2:54 PM T [facility] Albumin 3.5 3.4 - 5.0 gm/dL 09/14/2017 2:54 PM T [facility] Bilirubin Total 0.2 0.2 - 1.0 mg/dL 09/14/2017 2:54 PM [facility] eGFR by MDRD >60 >60 mL/min/1.7 3m2 09/14/2017 2:54 PM [facility] eGFR by MDRD >60 >60 mL/min/1.7 3m2 09/14/2017 2:54 PM [facility] Blood BLOOD SPECIMEN / Unknown Venipuncture / Unknown 09/14/2017 2:27 PM CDT 09/14/2017 2:34 PM CDT Duy Bauer MD LAB - CHEMISTRY [place] [facility] [address] [place] [address] * EEG AWAKE AND ASLEEP (08/07/2016 12:00 PM CDT) 08/07/2016 12:0 0 PM CDT Narrative Procedure Note Aayush Valle MD - 08/07/2016 11:59 PM CDT Images from the original note were not included. [address] [id number] CLINICAL NEUROPHYSIOLOGY NAME: FARZANA LEA : 2000 ADDRESS: [address] [place] [address] UNIT #: [id number] CSN #: [id number] DATE OF TEST: 08/07/2016 CIRCULAR TANK COOPER: AAYUSH VALLE MD EEG is performed on this 16-year-old girl, treated with topiramate fordiagnosed juvenile myoclonic epilepsy. She has not taken the medicationfor the past 1-1/2 weeks. Seizures have been under control and is inevaluation for possibility of discontinuing medication. CONDITIONS OF RECORDING: Awake, asleep, photic stimulation, hyperventilation, duration 33minutes. FINDINGS: The waking background shows good organization with a medium amplitude(40-80 microvolts) continuous, symmetric, rhythmic posterior 11 Hz alphaand mixed semirhythmic faster and slower patterns more anteriorly. Inlight sleep, vertex transients, spindles, and K complexes develop. High amplitude bursts of epileptiform spike/multispike and slow waverhythms at a frequency of 4 Hz are seen. Duration is 4 seconds at thelongest and there is no associated clinical change. These are augmentedby hyperventilation and by photic stimulation. INTERPRETATION: Abnormal EEG, recorded in wake and sleep, demonstrating findingsconsistent with generalized epileptogenic dysfunction, includingphotoparoxysmal response. The findings are consistent with known diagnosisof juvenile myoclonic epilepsy and demonstrate that the condition isactive. Dictated By: AAYUSH VALLE MD Pediatric Neurologist GF/MedQ JOB ID: [id number] cc: Arcadio Woods MD CLINICAL NEUROPHYSIOLOGY Arcadio Woods MD NEUROLOGY ORDERABLES [facility] * EEG AWAKE AND ASLEEP (05/17/2014 12:00 PM BUS ESCORT) 05/17/2014 12:0 0 PM BUS ESCORT Narrative Transcriptions Arcadio Woods MD - 05/18/2014 7:32 AM CST [address] [id number] CLINICAL NEUROPHYSIOLOGY NAME: FARZANA LEA : 2000 ADDRESS: [address] [place] [address] UNIT #: [id number] CSN #: [id number] DATE OF TEST: 05/17/2014 CIRCULAR TANK COOPER: Arcadio Woods MD This is an EEG being performed without sleep deprivation in a 61-zbil[age]yrdpdubb lady with a history of generalized epilepsy, on [facility] at the timeof the recording. The recording begins with the patient in a wakeful state. There is areactive and symmetric posterior dominant rhythm with frequencies of 11 Hzand amplitudes of 30-50 microvolts. A well-organized anteroposteriorgradient is identified. In drowsiness, there is a mild attenuation in the waking background withan increase in higher amplitude theta and beta rhythms seen. Brief (0.5second to 2 second) bursts of generalized high amplitude spike and slowwaves at a frequency of 4 Hz are identified during the initial drowsyportion of the recording. None of these are associated with any abnormalmovements. They are brief enough that consciousness cannot be assessed. The patient then enters a very light state of sleep with vertex sharptransient waves identified. There does seem to be augmentation of thepreviously described, bursts of generalized epileptiform discharge. Again,most lasting less than 2 seconds. One slightly more prolonged run lasting5-8 seconds was also not associated with any abnormal clinical movements. Upon reawakening, hyperventilation is performed, which leads to a modestslowing in the waking background, but does not produce any distinctepileptiform change or clinical seizure. Photic stimulation produces a brief photo paroxysmal response with fasterhigher amplitude generalized spike and spike discharges. Again, withoutany clear abnormal movement or distinct alteration in awareness that canbe appreciated. IMPRESSION: This is an abnormal EEG due to the presence of multiple bursts of sleepand photic augmented generalized spike and slow discharge typically with afrequency of 4 hertz, though slightly faster during the photic inducedportion. None of these are clearly clinical seizures. Overall, thiswould be indicative of a tendency towards idiopathic generalized epilepsy.Clinical correlation is suggested. Similar features have been noted onprior studies per our records. Dictated By: Arcadio Woods MD [facility] JOB ID: [id number] CLINICAL NEUROPHYSIOLOGY Arcadio Woods MD NEUROLOGY ORDERABLES [facility] * LAB RESULTS ORDER (05/31/2012 12:41 PM BUS ESCORT) Narrative Transcriptions Document, Scanned - 03/19/2012 9:05 AM CST Document, Scanned - 03/22/2012 8:09 AM CST Document, Scanned - 03/23/2012 8:35 AM CST Document, Scanned - 04/20/2012 7:50 AM CST Document, Scanned - 05/31/2012 12:40 PM CST Scanned Document LAB - THERAPEUTIC DR CARRASQUILLO MONITORING ORDERABLES * IMAGING/RADIOLOGY/XRAY RESULTS ORDER (03/19/2012 9:05 AM BUS ESCORT) Anatomical Region Laterality Modality Other Narrative Transcriptions Document, Scanned - 03/19/2012 9:05 AM CST Scanned Document IMAGING * EEG (07/14/2011) 07/14/2011 Narrative Transcriptions Khadar Jennings - 07/14/2011 6:55 PM CST [facility] Clinical Neurophysiology NAME: FARZANA LEA : 2000 ADDRESS: [address] [place] [address] UNIT #: [id number] DATE OF TEST: 07/14/2011 CIRCULAR TANK COOPER: KHADAR JENNINGS MD MEDICAL HISTORY: This 79-xhd[age]5-month-old has episodes during which the eyes sometimesflutter especially when riding in a car with sunlight through the trees.Sometimes she is unresponsive and staring. Occasionally in sports shewill totally miss something that she would normally not miss, such as aneasy catch in softball. It is also noted she gets a lot of headaches. MEDICATIONS: None listed. RECORDING DATA: Routine EEG was recorded by the clinical neurophysiology laboratory [facility] employing the Wxwioyhdpqszl03/20 system of electrode placement. Patient's EEG was recorded in bothwaking and sleep states and with the activating procedures of photicstimulation and hyperventilation. RESULTS: The waking background where best seen is continuous and organized with ananterior to posterior gradient and a recognizable well-formed but notconsistently maintained occipital rhythm of up to 12 Hz at best. Anteriorderivations for the most part show low voltage irregular mixtures ofsimilar frequencies with no persistent localizing or lateralizingabnormality. During sleep there are readily recognizable vertex waves of sleep spindlessuperimposed upon a low voltage slow background. During the course of the tracing there are numerous generalizedhigh-voltage spike, sometimes polyspike and slow wave discharges. Thefrequency varied from perhaps 4/sec to 2/sec. These are seen both duringsleep and waking states. They are seen during both hyperventilation andphotic stimulation, but it is not clear whether they are in response tospecific frequencies in the latter. During some of the episodes there is a brief pause, such as duringhyperventilation, and a 1 occasion some eye fluttering. Photic stimulation was carried out in stepwise increments from 1-30 Hzwith the patient's eyes open and with the patient's eyes shut. During thecourse of photic stimulation there were some generalized discharges notedabove, but it was not possible to tell when they occurred in relation tothe actual stimulation itself electronically. During hyperventilation there was a several second-long burst ofgeneralized spike and wave with a slight pause in activity occurring afterabout 3 minutes of hyperventilation. There were no localized epileptiform discharges. IMPRESSION: This is an abnormal EEG because of the presence of generalizedepileptiform discharges sometimes having a polyspike and slow wave, othertimes spike and slow wave morphology. The frequencies were best seen inthe middle would be 3 Hz with slightly faster frequencies at the beginningof a discharge and perhaps slightly slower at the end were also seen.During some of the discharges there appeared to be slight pauses inactivity or eye fluttering which probably meantf clinical AbsenceSeizure. Dictated By: KHADAR JENNINGS MD ELIANA/Tracey JOB ID: [id number] cc: Carmelo Tompkins MD Sharif Irby MD NEUROLOGY ORDERABLES [facility] Care Teams Director Of Accreditation Relationship Specialty [place] [address] [place] [id number] PCP - General 06/09/19
--- OUTSIDE RECORDS SUMMARY | 2024-07-19 13:19 | XMS_ITS | Clinical Summary ---
Author Organization [facility] Address [address] [place] [address] Phone Care Team Providers Care Small Battery Plate Assembler Name Role Phone Provider, None Primary Care Provider Unavailabl e Allergies No known active allergies Medications ondansetron (ZOFRAN-ODT) 4 MG TABLET DISPERSIBLEIndic ations:Gastroent eritis Take 1 Tab by mouth every 8 hours as needed for Nausea - 1st line. 10 Tab 9 Active Additional Information Patient not taking.Reported on 07/12/2019 ondansetron (ZOFRAN-ODT) 4 MG TABLET DISPERSIBLE Take 1 Tab by mouth every 8 hours as needed for Nausea - 1st line. 10 Tab 0 Active Active Problems Problem Noted Date Diagnosed Date Seizures 08/03/2017 Family History Medical History Relation Name Comments No Known Problems Father Seizures Mother Relation Name Status Comments Father Mother Social History Tobacco Use Types Packs/Day Years Used Date Smoking Tobacco: Former Cigarettes Q uit: 03/09/2018 Smokeless Tobacco: Never Tobacco Cessation:Counseling Given: No Alcohol Use Standard Drinks/Week Comments Yes 0 (1 standard drink = 0.6 oz pur e alcohol) occasionally Sexually Active Control Partners Comments Never Comments Unknown Sex and Gender Information Value Date Recorded Sex Assigned at Not on file Legal Sex Female 9:07 PM CDT Gender Identity Not on file Sexual Orientation Not on file Last Filed Vital Signs Vital Sign Reading Time Taken Comments Blood Pressure 122/68 12/17/2022 3:32 PM CDT Pulse 108 12/17/2022 3:32 PM CDT Temperature 36.4 C (97.6 F) 12/17/2022 3:32 PM CDT Respiratory Rate 17 12/17/2022 3:32 PM CDT Oxygen Saturation 97% 12/17/2022 3:32 PM CDT Inhaled Oxygen Concentration - - Weight 70.3 kg (155 lb) 12/17/2022 3:32 PM CDT Height 157.5 cm (5' 2 ) 12/17/2022 3:32 PM CDT Body Mass Index 28.35 12/17/2022 3:32 PM CDT Plan of Treatment Health Maintenance Due Date Last Done Comments Pap Smear 2020 Influenza Immunization (#1) 2024 01/28/2017 SARS-COV-2 Immunization (2 - season) 2024 07/01/2021 Respiratory Syncytial Virus (RSV) Immunization (Adult) (1 - 1-dose 75+ series) 2074 Hepatitis B Immunization Completed 000, [birth year] DTaP/Tdap/Td Immunization Discontinued 2010, 12/25/2003, 06/17/2000, Additional history exists TdaP Immunization Completed 12/02/2010 Meningococcal B Immunization Discontinued 01/28/2017 Meningococcal Immunization (ACWY) Completed 01/28/2017, 12/02/2010 Human Papillomavirus (HPV) Immunization Completed 10/31/2020, 10/31/2020, 06/28/2015, Additional history exists Hepatitis C Virus (HCV) Screening Completed 12/03/2022 Pneumococcal Immunization Combined Aged Out No longer eligible based on patient's age to complete this topic Rotavirus Immunization Aged Out No lo nger eligible based on patient's age to complete this topic Insurance MEDICAID [place] Care Teams Small Battery Plate Assembler Relationship Specialty Start Date End Date Provider, None [place] PCP - General 06/25/17
--- OUTSIDE RECORDS SUMMARY | 2024-07-19 15:27 | XMS_ITS | Clinical Summary ---
Author Organization [facility] Address [address] [place] [address] Care Team Providers Care Irrigation System Operator Name Role Phone Phil Tompkins MD Primary Care Provider [phone] Source Comments [facility],non-owned Affiliates and Associated Physician Practices is amultiple site organization consisting of ambulatory clinics and hospital sitesin [place], [place], [place] and [place]. This disclosure is being madepursuant to the Care Everywhere program and may not contain all information available regarding this patient. Last updated 18.[facility] Allergies No known active allergies Medications * [...] epilepticus Assessment & Plan (03/16/2017 4:55 PM LONG FILLER CIGAR ROLLER MACHINE): Assessment: 17 y.o. female with PMH of [...] lb 2.8 oz) 05/19/2017 1:20 P M LONG FILLER CIGAR ROLLER MACHINE Height 158.3 cm (5' 2.32 ) 05/19/2017 1:20 PM CS T Body Mass Index 28.81 05/19/2017 1:20 PM LONG FILLER CIGAR ROLLER MACHINE Plan of Treatment Health Maintenance Due Date [...] Documents on File Type Date Recorded Patient Auto Fleet Manager Expl anation Adv Directive/Living Will/POA 01/15/2012 10:46 AM * Full Code (Latest Code Status on File) Date Activated Date Inactivated Comments 09/14/2017 11:45 AM 09/18/2017 2:06 PM Care Teams Irrigation System Operator Relationship Specialty Start Date End Date Phil Tompkins MD [address] [place] [address] PCP - General 06/09/19
--- OUTSIDE RECORDS SUMMARY | 2024-07-19 15:27 | XMS_ITS | Patient Health Summary ---
Author Organization [facility] Address [address] [place] [address] Care Team Providers Care Clay Worker Name Role Phone Phil Tompkins MD Primary Care Provider [phone] Note from [facility],non-owned Affiliates and Associated Physician Practices is amultiple site organization consisting of ambulatory clinics and hospital sitesin [place], [place], [place] and [place]. This disclosure is being madepursuant to the Care Everywhere program and may not contain all information available regarding this patient. Last updated 18.[facility] Allergies No known active allergies Medications [...] lb 2.8 oz) 05/19/2017 1:20 P M MACHINE FEEDER Height 158.3 cm (5' 2.32 ) 05/19/2017 1:20 PM CS T Body Mass Index 28.81 05/19/2017 1:20 PM MACHINE FEEDER Procedures * CARDIAC RHYTHM STRIP ORDER(Performed 09/23/2017) [...] 1 HOUR (09/21/2017 2:44 PM CDT) Narrative [facility] - 09/21/2017 2:44 PM CDT Duy Bauer MD 09/21/2017 2:44 PM LONG-TERM VIDEO EEG [facility] Long-term video EEG monitoring was performed on a patient with primary generalized epilepsy for diagnosis and localization. Utilizing the Outlisten recording system, EEG was recorded in standard [...] - 37.0 gm/dL 09/14/2017 2:38 PM CDT [facility] Platelet Count 212 100 - 400 x10E9/L 09/14/2017 2:38 PM CDT [facility] RDW-CV 12.9 11.5 - 14.0 % 09/14/2017 2:38 PM CDT [facility] MPV 10.3(H) 6.0 - 9.5 fl 09/14/2017 2:38 PM CDT [facility] Neutrophils % 62.3 31.0 - 78.0 % 09/14/2017 2:38 PM CDT [facility] Lymphocytes % 29.6 13.0 - 54.0 % 09/14/2017 2:38 PM CDT [facility] Monocytes % 5.8 4.0 - 13.0 % 09/14/2017 2:38 PM CDT [facility] Eosinophils % 1.7 0.0 - 8.0 % 09/14/2017 2:38 PM CDT [facility] Basophils % 0.4 % 09/14/2017 2:38 PM CDT [facility] Immature Granulocytes 0.2 % 09/14/2017 2:38 PM CDT [facility] Neutrophil Absolute 6.94 x10E9/L 09/14/2017 2:38 PM CDT [facility] Lymphocytes Absolute 3.30 x10E9/L 09/14/2017 2:38 PM CDT [facility] Monocytes Absolute 0.64 x10E9/L 09/14/2017 2:38 PM CDT [facility] Eosinophils Absolute 0.19 x10E9/L 09/14/2017 2:38 PM CDT [facility] Basophils Absolute 0.04 x10E9/L 09/14/2017 2:38 PM CDT [facility] Immature Granulocytes Absolute 0.02 x10E9/L 09/14/2017 2:38 PM CDT [facility] nRBC Auto 0 /100 WBC 09/14/2017 2:38 PM CDT [facility] Blood BLOOD SPECIMEN / Unknown Venipuncture / Unknown 09/14/2017 2:27 PM CDT 09/14/2017 2:34 PM CDT Duy Bauer MD LAB - HEMATOLOGY ORD ERABLES [facility] [address] [place] [id number] * (ABNORMAL) COMPREHENSIVE METABOLIC PANEL (09/14/2017 2:27 PM CDT) [facility] Glucose 85 74 - 106 mg/dL 09/14/2017 2:54 PM CDT [facility] Sodium 141 136 - 145 mmol/L 09/14/2017 2:54 PM CDT [facility] Potassium 3.8 3.5 - 5.1 mmol/L 09/14/2017 2:54 PM CDT [facility] Chloride 111(H) 98 - 107 mmol/L 09/14/2017 2:54 PM CDT [facility] CO2 26 20 - 28 mmol/L 09/14/2017 2:54 PM CDT [facility] Calcium 8.5 8.5 - 10.1 mg/dL 09/14/2017 2:54 PM T [facility] Anion Gap 4(L) 8 - 16 mmol/L 09/14/2017 2:54 PM CDT [facility] BUN 9 7 - 21 mg/dL 09/14/2017 2:54 PM CDT [facility] Creatinine 0.75 0.50 - 1.30 mg/dL 09/14/2017 2:54 PM T [facility] Alkaline Phosphatase 82 38 - 126 U/L 09/14/2017 2:54 PM T [facility] ALT 19 13 - 61 U/L 09/14/2017 2:54 PM T [facility] AST 15 5 - 40 U/L 09/14/2017 2:54 PM T [facility] Protein Total 6.9 6.4 - 8.2 gm/dL 09/14/2017 2:54 PM T [facility] Albumin 3.5 3.4 - 5.0 gm/dL 09/14/2017 2:54 PM T [facility] Bilirubin Total 0.2 0.2 - 1.0 mg/dL 09/14/2017 2:54 PM [facility] eGFR by MDRD >60 >60 mL/min/1.7 3m2 09/14/2017 2:54 PM [facility] eGFR by MDRD >60 >60 mL/min/1.7 3m2 09/14/2017 2:54 PM [facility] Blood BLOOD SPECIMEN / Unknown Venipuncture / Unknown 09/14/2017 2:27 PM CDT 09/14/2017 2:34 PM CDT Duy Bauer MD LAB - CHEMISTRY [place] [facility] [address] [place] [address] * EEG AWAKE AND ASLEEP (08/07/2016 12:00 PM CDT) 08/07/2016 12:0 0 PM CDT Narrative Procedure Note Aayush Valle MD - 08/07/2016 11:59 PM CDT Images from the original note were not included. [address] [id number] CLINICAL NEUROPHYSIOLOGY NAME: FARZANA LEA : 2000 ADDRESS: [address] [place] [address] UNIT #: [id number] CSN #: [id number] DATE OF TEST: 08/07/2016 REPRESENTATIVE GOVERNMENT RELATIONS: AAYUSH VALLE MD EEG is performed on [...] VALLE MD Pediatric Neurologist GF/MedQ JOB ID: [id number] cc: Arcadio Woods MD CLINICAL NEUROPHYSIOLOGY Arcadio Woods MD NEUROLOGY ORDERABLES [facility] MEDQUIST * EEG AWAKE AND ASLEEP (05/17/2014 12:00 PM MACHINE FEEDER) 05/17/2014 12:0 0 PM MACHINE FEEDER Narrative Transcriptions Arcadio Woods MD - 05/18/2014 7:32 AM CST [address] [id number] CLINICAL NEUROPHYSIOLOGY NAME: FARZANA LEA : 2000 ADDRESS: [address] [place] [address] UNIT #: [id number] CSN #: [id number] DATE OF TEST: 05/17/2014 REPRESENTATIVE GOVERNMENT RELATIONS: Arcadio Woods MD This is an EEG being performed without sleep deprivation in a 33-qdn[age]-hbuhlbfg lady with a history of generalized epilepsy, on [facility] at the timeof the recording. The [...] our records. Dictated By: Arcadio Woods MD [facility]/MedQ JOB ID: [id number] CLINICAL NEUROPHYSIOLOGY Arcadio Woods MD NEUROLOGY ORDERABLES [facility] * LAB RESULTS ORDER (05/31/2012 12:41 PM MACHINE FEEDER) Narrative Transcriptions Document, Scanned - 03/19/2012 9:05 AM CST Document, Scanned - 03/22/2012 8:09 AM CST Document, Scanned - 03/23/2012 8:35 AM CST Document, Scanned - 04/20/2012 7:50 AM CST Document, Scanned - 05/31/2012 12:40 PM CST Scanned Document LAB - THERAPEUTIC DR CARRASQUILLO MONITORING ORDERABLES * IMAGING/RADIOLOGY/XRAY RESULTS ORDER (03/19/2012 9:05 AM MACHINE FEEDER) Anatomical Region Laterality Modality Other Narrative Transcriptions Document, Scanned - 03/19/2012 9:05 AM CST Scanned Document IMAGING * EEG (07/14/2011) 07/14/2011 Narrative Transcriptions Khadar Jennings - 07/14/2011 6:55 PM CST [facility] Clinical Neurophysiology NAME: FARZANA LEA : 2000 ADDRESS: [address] [place] [address] UNIT #: [id number] DATE OF TEST: 07/14/2011 REPRESENTATIVE GOVERNMENT RELATIONS: KHADAR JENNINGS MD MEDICAL HISTORY: This 83-wlhw[age]6-month-old has episodes during which the eyes sometimesflutter [...] was recorded by the clinical neurophysiology laboratory [facility] employing the Nxnqbdzeqblvw29/20 system of electrode placement. Patient's EEG was [...] By: KHADAR JENNINGS MD ELIANA/Tracey JOB ID: [id number] cc: Carmelo Tompkins MD Sharif Irby MD NEUROLOGY ORDERABLES [facility] Care Teams Clay Worker Relationship Specialty [place] [address] [place] [id number] PCP - General 06/09/19
--- OUTSIDE RECORDS SUMMARY | 2024-07-19 15:27 | XMS_ITS | Clinical Summary ---
Author Organization [address] Address [address] [place] [phone] Care Team Providers Care Electronic Device Repairer Name Role Phone Duy Perkins MD Primary Care Provider [phone] Allergies No known active allergies Medications citalopram [...] expectation of being switched when you see TEAR DOWN MATCHER. 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 Assessment & Plan (02/26/2024 11:55 AM CDT): [...] your phone. Examples would be headspace, calm, [id number], Personal Josué. Please work on this every [...] your phone. Examples would be headspace, calm, [id number], Personal Josué. Please work on this every [...] effectively. Assessment & Plan (06/25/2021 2:19 PM MRI TECHNICIAN): Patient reiterated no suicidal thoughts at this [...] your phone. Examples would be headspace, calm, [id number], Personal Josué. Please work on this every [...] in your mouth on an mj like [employer] Lower carb substitutions: Aldi carries a zero [...] in much longer they will become mushy [place] and/or coconut flour instead of regular flour [...] pork rinds For yogurt, try Two Good honduran yogurt Use Pinterest for recipe ideas. Type [...] in your mouth on an mj like [employer] or [employer]ne[employer] carries a zero net carb bread If [...] in much longer they will become mushy [place] and/or coconut flour instead of regular flour [...] pork rinds For yogurt, try Two Good honduran yogurt Use Adelaide for recipe ideas. Type in low carb... Assessment & Plan (06/25/2021 2:08 PM MRI TECHNICIAN): HPI: Condition is stable goal BMI <30 [...] in much longer they will become mushy [place] and/or coconut flour instead of regular flour [...] pork rinds For yogurt, try Two Good honduran yogurt Use Pinterest for recipe ideas. Type in low carb... Functional diarrhea 06/25/2021 Assessment & Plan (08/12/2021 7:34 AM CDT): Please start taking probiotic 20-50billion CFU daily nursing home. This will help maintain the good bacteria that is in your gut. Assessment & Plan (06/25/2021 2:31 PM MRI TECHNICIAN): Please start taking probiotic 20-50billion CFU daily nursing home. This will help maintain the good bacteria [...] no recent seizure activity. Last seizure about 9514-6307. This may make pt need to see high school assistant principal/GYN. Assessment & Plan (06/25/2021 2:17 PM MRI TECHNICIAN): HPI: Condition is stable Patient does not [...] week 08/20/2022 How often do you attend [facility] or pentecostalism services? More than 4 times per year 08/20/2022 Do you belong to any clubs o r organizations such as religion groups, unions, fraternal or athletic groups, or [...] staff should administer the PHQ-9) 6 09/15/2023 [facility] - Occupational Stress Questionnaire Answer Date [...] place to sleep or slept in a assisted (including now)? No 08/20/2022 PHQ-9 Answer Date Recorded PHQ-9 Total Score 20 09/15/2023 Personal Safety Answer Date Recorded Getting School Help Needed Not on file 07/10 Comments Unknown Sex and Gender Information Value Date Recorded Sex Assigned at Not on file Legal Sex Female 2:29 AM MRI TECHNICIAN Gender Identity Female 09/16/2021 5:33 AM CDT [...] last revised on 2019. Testing performed by: [facility], [id number] [place] [address], [place]., [address] Blood 09/15/2023 9:19 AM CDT 09/15/2023 2:07 PM CDT us Duy Perkins MD LAB MICROBIOLOGY - GENERA L ORDERABLES Edited Result - Final [facility] ([place]) [address] [facility] Department [place] [address] * Pap and High Risk HPV, reflex to Genotyping (10/31/2020) Thin prep 10/31/2020 Narrative Kirsten Carbajal MA - 10/31/2020 Copy of results sent to scanning to be uploaded into chart us Historical Provider LAB CYTOLOGY ORDERABLES F inal Result from Last 3 Months or Most Recently Relevant to Health Maintenance Insurance Care Teams Electronic Device Repairer Relationship Specialty Start Date End Date Duy Perkins [place] [address] PCP - General Family Medicine 08/20/22
--- OUTSIDE RECORDS SUMMARY | 2024-07-19 15:27 | XMS_ITS | Referral Summary ---
Author Organization [address] Address [address] [place] [phone] Care Team Providers Care Project Inspector Name Role Phone Duy Perkins MD Primary Care Provider [phone] Allergies No known active allergies Medications citalopram [...] expectation of being switched when you see RECOIL SPRING WINDER. >>ASSESSMENT AND PLAN FOR MIXED ANXIETY AND DEPRESSIVE DISORDER WRITTEN ON 09/17/2021 7:36 AM BY CARLOS TALLEY NP Continue on current meds at this time with expectation of being switched when you see RECOIL SPRING WINDER. Assessment & Plan (02/26/2024 11:55 AM CDT): [...] your phone. Examples would be headspace, calm, [id number], Personal Josué. Please work on this every [...] your phone. Examples would be headspace, calm, [id number], Personal Josué. Please work on this every [...] effectively. Assessment & Plan (06/25/2021 2:19 PM VENDING MACHINE SERVICER): Patient reiterated no suicidal thoughts at this [...] your phone. Examples would be headspace, calm, [id number], Personal Josué. Please work on this every [...] in your mouth on an mj like [employer] Lower carb substitutions: Aldi carries a zero [...] in much longer they will become mushy [place] and/or coconut flour instead of regular flour [...] pork rinds For yogurt, try Two Good qatari yogurt Use Pinterest for recipe ideas. Type [...] in your mouth on an mj like [employer] or [employer] carries a zero net carb bread If [...] in much longer they will become mushy [place] and/or coconut flour instead of regular flour [...] pork rinds For yogurt, try Two Good qatari yogurt Use Adelaide for recipe ideas. Type in low carb... Assessment & Plan (06/25/2021 2:08 PM VENDING MACHINE SERVICER): HPI: Condition is stable goal BMI <30 [...] in much longer they will become mushy [place] and/or coconut flour instead of regular flour [...] pork rinds For yogurt, try Two Good qatari yogurt Use Pinterest for recipe ideas. Type in low carb... Functional diarrhea 06/25/2021 Assessment & Plan (08/12/2021 7:34 AM CDT): Please start taking probiotic 20-50billion CFU daily half-way. This will help maintain the good bacteria that is in your gut. Assessment & Plan (06/25/2021 2:31 PM VENDING MACHINE SERVICER): Please start taking probiotic 20-50billion CFU daily half-way. This will help maintain the good bacteria [...] no recent seizure activity. Last seizure about 1434-6043. This may make pt need to see higher level teaching assistant/GYN. Assessment & Plan (06/25/2021 2:17 PM VENDING MACHINE SERVICER): HPI: Condition is stable Patient does not [...] often do you attend chur ch or protestant services? More than 4 times per year 08/20/2022 Do you belong to any clubs o r organizations such as evangelical groups, unions, fraternal or athletic groups, or [...] staff should administer the PHQ-9) 6 09/15/2023 [facility] - Occupational Stress Questionnaire Answer Date Recorded [...] place to sleep or slept in a snf (including now)? No 08/20/2022 PHQ-9 Answer Date Recorded PHQ-9 Total Score 20 09/15/2023 Personal Safety Answer Date Recorded Getting School Help Needed Not on file 07/10 Comments Unknown Sex and Gender Information Value Date Recorded Sex Assigned at Not on file Legal Sex Female 2:29 AM VENDING MACHINE SERVICER Gender Identity Female 09/16/2021 5:33 AM CDT [...] last revised on 2019. Testing performed by: [facility], [address] [place] [address], [place]., [address] Blood 09/15/2023 9:19 AM CDT 09/15/2023 2:07 PM CDT Duy Perkins MD LAB MICROBIOLOGY - GENERA L ORDERABLES Edited Result - Final [facility] ([place]) [facility] [place] [address] * Pap and High Risk HPV, reflex to Genotyping (10/31/2020) Thin prep 10/31/2020 Narrative Kirsten Carbajal MA - 10/31/2020 Copy of results sent to scanning to be uploaded into chart us Historical Provider LAB CYTOLOGY ORDERABLES F inal Result from Last 3 Months or Most Recently Relevant to Health Maintenance Insurance Care Teams Project Inspector Relationship Specialty Start Date End Date Duy Perkins [place] [address] PCP - General Family Medicine 08/20/22
--- OUTSIDE RECORDS SUMMARY | 2024-07-19 15:27 | XMS_ITS | Clinical Summary ---
Author Organization [facility] Address [address] [facility], [place] [address] Phone Care Team Providers Care Naphthalene Operator Name Role Phone Provider, None Primary Care [...] this topic Insurance MEDICAID [place] Care Teams Naphthalene Operator Relationship Specialty Start Date End Date Provider, None [place] PCP - General 06/25/17
--- OUTSIDE RECORDS SUMMARY | 2024-07-19 15:27 | XMS_ITS | Referral Summary ---
Author Organization [facility] Address [address] [place] [address] Care Team Providers Care Entry Level Account Representative Name Role Phone Phil Tompkins MD Primary Care Provider [phone] Source Comments [facility],non-owned Affiliates and Associated Physician Practices is amultiple site organization consisting of ambulatory clinics and hospital sitesin [place], [place], [place] and [place]. This disclosure is being madepursuant to the Care Everywhere program and may not contain all information available regarding this patient. Last updated 18.[facility] Allergies No known active allergies Medications * [...] epilepticus Assessment & Plan (03/16/2017 4:55 PM ASSURANCE SENIOR MANAGER INSURANCE): Assessment: 17 y.o. female with PMH of [...] lb 2.8 oz) 05/19/2017 1:20 P M ASSURANCE SENIOR MANAGER INSURANCE Height 158.3 cm (5' 2.32 ) 05/19/2017 1:20 PM CS T Body Mass Index 28.81 05/19/2017 1:20 PM ASSURANCE SENIOR MANAGER INSURANCE Functional Status Functional Status Response Date of [...] Documents on File Type Date Recorded Patient Generator Operator Expl anation Adv Directive/Living Will/POA 01/15/2012 10:46 AM * Full Code (Latest Code Status on File) Date Activated Date Inactivated Comments 09/14/2017 11:45 AM 09/18/2017 2:06 PM Care Teams Entry Level Account Representative Relationship Specialty Start Date End Date Phil Tompkins MD [address] [place] [address] PCP - General 06/09/19
== END 2024-07-19 14:39 | disposition left against medical advice (07) ==
PROVIDERS: PCP Hospitalist
DX: O26.891 Other specified pregnancy related conditions, first trimester (principal); I11.0 Hypertensive heart disease with heart failure
CPT/HCPCS: 99199

== ENCOUNTER 2024-10-31 22:09 | Emergency (ER) | payer OTHER, SELFPAY ==
--- NOTE | ~2024-10-31 | US_ITS ---
EXAM EXAMINATION: US OB limited DATE: 10/31/2024 23:21 CDT INDICATION: Fall, 18 weeks COMPARISON: None TECHNIQUE: Real-time transabdominal obstetric ultrasound. FINDINGS: There is a single intrauterine gestation in breech presentation. The placenta is anterior. cardiac activity and movement is noted with a heart rate of 157 beats per minute. Deepest vertical pocket of amniotic fluid measures 2.7 cm IMPRESSION: Single intrauterine gestation in breech presentation with cardiac activity identified. Deepest vertical pocket of amniotic fluid measures 2.7 cm Reviewed, dictated and finalized at location A. IMPRESSION: Single intrauterine gestation in breech presentation with cardiac activit y identified. Deepest vertical pocket of amniotic fluid measures 2.7 cm
[2024-10-31 22:18] VITALS: BP 112/62; PULSE 99; RESP 16; TEMP 36.8; O2SAT 100
[2024-10-31] MEDS: ACETAMINOPHEN 500 MG TABLET 1000 MG PO (23:15)
[2024-10-31] MEDS: SODIUM CHLORIDE 0.9% IV 1,000 ML 999 ML IV CONT (23:15)
[2024-10-31 23:24] LABS: Basophils Absolute Auto 0.1 K/mm3 (0.0-0.1); Basophils Percent Auto 0.3 % (0.2-1.2); Eosinophils Absolute Auto 0.2 K/mm3 (0-0.3); Eosinophils Percent Auto 1.2 % (0-4.4); Hematocrit 37.6 % (37.0-47.0); Hemoglobin 12.8 g/dL (12.0-15.0); Immature Granulocyte Absolute 0.14 K/mm3 (0.00-0.031); Immature Granulocyte Percent A 0.8 % (0-0.5); Lymphocytes Absolute Auto 3.35 K/mm3 (0.9-3.2); Lymphocytes Percent Auto 18.8 % (18.3-44.2); Mean Corpuscular Hemoglobin 31.1 pg (26-34); Mean Corpuscular Volume 91.5 fl (80-100); Mean Platelet Volume 10.1 fl (7.4-10.4); Monocytes Absolute Auto 0.6 K/mm3 (0.1-0.6); Monocytes Percent Auto 3.5 % (2.6-8.5); Neutrophils Absolute Auto 13.4 K/mm3 (1.3-6.7); Neutrophils Percent Auto 75.4 % (45.5-73.1); Platelet Count Result 219 k/mm3 (150-375); Red Blood Count 4.11 M/mm3 (4.2-5.4); Red Cell Distribution Width 14.4 % (11.5-14.5); White Blood Count 17.8 K/mm3 (4.5-10.0)
--- NOTE | 2024-10-31 23:32 | ED.FALL ---
HPI - Fall General Chief Complaint: Fall Stated Complaint: 18 weeks , 2 falls yesterday Time Seen by Provider: 10/31/24 22:25 Source: patient Mode of arrival: ambulatory Limitations: no limitations History of Present Illness HPI Narrative: This is a 24 year old female that presents to the ER after a couple of falls yesterday. Reports she fell chasing her dog. Did not sustain any certain injuries. Did not land on her abdomen. She has had some pelvic pain, low back pain today. Her OB was not able to get her in for an US today so she was sent to the ER. Denies fevers, dysuria, vaginal bleeding. Related Data Home Medications ?Medication ?Instructions ?Recorded ?Confirmed ?Last Taken ?Type citalopram 10 mg tablet mg 05/18/24 Unknown History dextroamphetamine-amphetamine 10 05/18/24 Unknown History mg tablet dextroamphetamine-amphetamine ER PO 05/18/24 Unknown History 30 mg 24hr capsule,extend release Allergies Allergy/AdvReac Type Severity Reaction Status Date / Time No Known Allergies Allergy Verified 10/31/24 22:10 Review of Systems Review of Systems: All systems reviewed & are unremarkable except as noted in HPI and below PMFSH Past Medical History Medical History Epilepsy Obesity Anxiety Depression Surgical History Surgical History No significant past surgical history Family History Family History Father Cerebrovascular accident Mother , Motorcycle accident Unknown family medical history Epilepsy Social History Social History Smoking status: Current every day smoker Tobacco type: e-cigarettes/vaping Second hand tobacco smoke exposure: No Smoking end date: 09/27/21 Alcohol intake: former Substance use: never Do You Feel Safe in your Home?: No Lack of Transportation: No Lack of Food: Never True Current Housing: I Have Housing Concerned About Future Housing: No Difficulty Paying Gas/Electric Bills: No Difficulty Paying for Meds: No Currently Unemployed: No Education: High School Diploma/GED Difficulty w/ Childcare or Family Care: No Living arrangements: with family Occupation/Education: occupation Gender identity (if verbalized by the patient): Female Sexual Orientation (if Verbalized by the Patient): Straight or Heterosexual Spiritual care concerns: No Exam Narrative: GENERAL: Well-appearing, well-nourished, and in no acute distress. HEAD: Normocephalic, atraumatic. EYES: EOMI. CHEST: Clear to auscultation. No respiratory distress. No wheezes rales or rhonchi HEART: Regular rate and rhythm. No murmur heard. Normal peripheral pulses. ABDOMEN: Soft, nontender, nondistended, normal active bowel sounds. EXTREMITIES: Normal range of motion. No edema. SKIN: Warm, dry, no rash. NEURO: No focal deficits. Alert and oriented x3. PSYCH: Normal mood and affect Course Course Emergency Course: Patient was updated on her workup and agrees with plan of care. Vital Signs Vital signs: Vital Signs Temperature 98.2 F 10/31/24 22:18 Pulse Rate 99 10/31/24 22:18 Respiratory Rate 16 10/31/24 22:18 Blood Pressure 112/62 10/31/24 22:18 Pulse Oximetry 100 10/31/24 22:18 Temperature 98.2 F 10/31/24 22:18 Pulse Rate 99 10/31/24 22:18 Respiratory Rate 16 10/31/24 22:18 Blood Pressure 112/62 10/31/24 22:18 Pulse Oximetry 100 10/31/24 22:18 MDM - Fall MDM Narrative Medical decision making narrative: Patient presents the emergency department for lower abdominal pain, low back pain. Currently 18 weeks . Reports she had a couple of falls yesterday. Does not report any certain injury sustained. She did not land on her abdomen. Presents for an ultrasound as her OB was not able to get her in for 1 today. She is afebrile and nontoxic appearing. CBC with leukocytosis to 17.8, this does appear chronic for patient. Metabolic panel without concerning findings. Urine with possible evidence of infection, this will be sent culture. Oral antibiotics sent. Obstetric ultrasound shows single intrauterine gestation with cardiac activity identified. Patient was updated on her workup and agrees with plan of care. She is to follow up with her OB. She was given warnings to return to the ER Differential Diagnosis Differential diagnosis: Likely other (Dehydration, electrolyte derangement, UTI, muscle strain) Lab Data Attestation: I reviewed the patient's lab results. 10/31/24 23:13 10/31/24 23:13 Labs: Lab Results 10/31/24 Range/Units 23:13 WBC 17.8 H (4.5-10.0) K/mm3 RBC 4.11 L (4.2-5.4) M/mm3 Hgb 12.8 (12.0-15.0) g/dL Hct 37.6 (37.0-47.0) % MCV 91.5 (80-100) fl MCH 31.1 (26-34) pg MCHC 34.0 (32-36) g/dl RDW 14.4 (11.5-14.5) % Plt Count 219 (150-375) k/mm3 MPV 10.1 (7.4-10.4) fl Immature Gran % (Auto) 0.8 H (0-0.5) % Neut % (Auto) 75.4 H (45.5-73.1) % Lymph % (Auto) 18.8 (18.3-44.2) % [place] % (Auto) 3.5 (2.6-8.5) % Eos % (Auto) 1.2 (0-4.4) % Baso % (Auto) 0.3 (0.2-1.2) % Lymph # (Auto) 3.35 H (0.9-3.2) K/mm3 [place] # (Auto) 0.6 (0.1-0.6) K/mm3 Eos # (Auto) 0.2 (0-0.3) K/mm3 Baso # (Auto) 0.1 (0.0-0.1) K/mm3 Abs Immat Gran (auto) 0.14 H (0.00-0.031) K/mm3 Absolute Neuts (auto) 13.4 H (1.3-6.7) K/mm3 Absolute Nucleated RBC 0.000 (0.0-0.012) K/mm3 Nucleated RBC % 0.0 (0.0-0.2) % Sodium 132 L (137-145) mmol/L Potassium 3.6 (3.4-5.0) mmol/L Chloride 103 (98-107) mmol/L Carbon Dioxide 21 L (22-30) mmol/L Anion Gap 8 (4-12) mmol/L BUN 13 (7-17) mg/dL Creatinine 0.75 (0.7-1.0) mg/dL Estim Creat Clear Calc 95 ml/min Estimated GFR > 60 (59 - ) Glucose 76 (65-110) mg/dL Calcium 9.3 (8.4-10.2) mg/dL Total Bilirubin 0.2 (0.2-1.3) mg/dL AST 25 (14-36) U/L ALT 20 (6-35) U/L Alkaline Phosphatase 64 (38-126) U/L Total Protein 7.4 (6.3-8.2) g/dL Albumin 4.0 (3.5-5.1) g/dL Lipase 50 (23-300) U/L Urine Color Yellow (Yellow) Urine Appearance Clear (Clear) Urine pH 7.0 (5.0-9.0) Ur Specific [place] 1.020 (1.001-1.035) Urine Protein Negative (Negative) mg/dL Urine Glucose (UA) Negative (Negative) mg/dL Urine Ketones Trace H (Negative) mg/dL Ur Blood (Man) Negative (Negative) Urine Nitrate Negative (Negative) Urine Bilirubin Negative (Negative) Urine Urobilinogen 0.2 (<2.0) mg/dL Leukocyte Esterase Rfl 2+ H (Negative) LUCERO/UL Urine RBC 0-2 (0-2) /hpf Urine WBC 11-20 H (0-3) /hpf Ur Squamous Epith Cells Few (Few) /hpf Urine Bacteria Rare /hpf Urine Casts 0-2 Imaging Data Radiologist's impression: ITS Impressions Obstetrics Ultrasound 10/31/24 23:21 IMPRESSION: Single intrauterine gestation in breech presentation with cardiac activity identified. Deepest vertical pocket of amniotic fluid measures 2.7 cm Critical Care Time Critical Care Time Critical Care Time: No Discharge Plan Discharge Clinical Impression: Fall, Pyuria, Patient Disposition: Home Condition: Stable Instructions: Urinary Tract Infection in (ED), at 15 to 18 Weeks (ED) Additional Instructions: Return to the ER if you experience fever, abdominal pain with nausea and vomiting, you are unable to keep down liquids or solids, vaginal bleeding, or any other symptoms that are concerning to you Remain well hydrated. Tylenol as needed for discomfort. Take oral antibiotics as prescribed Follow up with your OB Patient Language: Mongolian Prescriptions: New nitrofurantoin monohyd/m-cryst [Macrobid] 100 mg capsule 100 mg PO Q12H 5 Days Qty: 10 0RF Rx Instructions: must administer with a meal/food No Action citalopram 10 mg tablet dextroamphetamine-amphetamine 10 mg tablet dextroamphetamine-amphetamine 30 mg capsule,extended release 24hr PO amoxicillin 500 mg tablet 500 mg PO Q12H Qty: 20 0RF Follow-up/Referrals: Gregorio,MD Duy [Primary Care Provider] -
[2024-10-31 23:33] LABS: Add Urine Microscopic? YES; Appearance Urine Clear (Clear); Bacteria Urine Rare /hpf; Bilirubin Urine Negative (Negative); Blood Urine Negative (Negative); Color Urine Yellow (Yellow); Glucose Urine UA Negative (Negative); Ketones Urine Trace mg/dL (Negative); Leukocyte Esterase Ur 2+ LEU/UL (Negative); Nitrate Urine Negative (Negative); Non Pathogenic Casts 0-2; Protein Urine Negative (Negative); RBC Urine 0-2 /hpf (0-2); Squamous Epithelial Cell Urine Few /hpf (Few); Urobilinogen Urine 0.2 mg/dL (<2.0)
[2024-10-31 23:41] LABS: Alanine Aminotransferase 20 U/L (6-35); Alkaline Phosphatase 64 U/L (38-126); Anion Gap 8 mmol/L (4-12); Aspartate Amino Transferase 25 U/L (14-36); Bilirubin,Total 0.2 mg/dL (0.2-1.3); Blood Urea Nitrogen 13 mg/dL (7-17); Calcium 9.3 mg/dL (8.4-10.2); Carbon Dioxide 21 mmol/L (22-30); Chloride 103 mmol/L (98-107); Estimated CRCL calculation 95 ml/min; Estimated Glomerular Filt Rate > 60; Glucose 76 mg/dL (65-110); Lipase 50 U/L (23-300); Potassium 3.6 mmol/L (3.4-5.0); Sodium 132 mmol/L (137-145); Total Protein 7.4 g/dL (6.3-8.2)
== END 2024-11-01 00:10 | disposition home or self-care (01) ==
PROVIDERS: Emergency Provider Physician Assistant; PCP Hospitalist
DX: Z04.3 Encounter for examination and observation following other accident (principal); O26.892 Other specified pregnancy related conditions, second trimester; R82.81 Pyuria; W19.XXXA Unspecified fall, initial encounter; Z3A.18 18 weeks gestation of pregnancy; O99.332 Smoking (tobacco) complicating pregnancy, second trimester; F17.290 Nicotine dependence, other tobacco product, uncomplicated
CPT/HCPCS: 36415; 76815; 80053; 81001; 83690; 85025; 87086; 87186; 96360; 99284; A9270; J7030

== ENCOUNTER 2024-12-17 16:58 | Emergency (ER) | payer OTHER, SELFPAY ==
--- NOTE | 2024-12-17 17:14 | ED.URI ---
HPI - URI/Sore Throat General Chief Complaint: Upper Respiratory Infection Stated Complaint: migraine, sore throat, fever Time Seen by Provider: 12/17/24 17:06 Patient presents to [facility] with complaints of headache, fatigue, nasal congestion, sore throat, and cough that began about 3 days ago. Patient believes she has strep. No known sick contacts. Patient reports she is currently 25 weeks and has not been taking any medications due to this. Denies known fever, chills, body aches shortness of breath, abdominal pain, vaginal bleeding, sinus pain. Related Data Home Medications ?Medication ?Instructions ?Recorded ?Confirmed ?Last Taken ?Type citalopram 10 mg tablet mg 05/18/24 Unknown History dextroamphetamine-amphetamine 10 05/18/24 Unknown History mg tablet dextroamphetamine-amphetamine ER PO 05/18/24 Unknown History 30 mg 24hr capsule,extend release Allergies Allergy/AdvReac Type Severity Reaction Status Date / Time No Known Allergies Allergy Verified 12/17/24 17:08 Review of Systems Constitutional: Constitutional: Reports as per HPI, Denies chills, Reports fatigue, Denies fever(s) and Denies weakness Eyes: Eyes: Reports no additional eye complaints ENT: Reports as per HPI, Reports nasal congestion and Reports sore throat Cardiovascular: Cardiovascular: Reports no additional cardiovascular complaints Respiratory: Respiratory: Reports as per HPI, Denies chest congestion, Reports cough, Denies dyspnea and Denies wheezing Gastrointestinal: Gastrointestinal: Reports as per HPI, Denies abdominal pain, Denies diarrhea, Denies nausea and Denies vomiting Genitourinary: Genitourinary: Reports as per HPI, Denies hematuria, Denies pelvic pain and Denies vaginal discharge Musculoskeletal: Musculoskeletal: Reports no additional musculoskeletal complaints Integumentary/Breasts: Skin/Breast: Reports as per HPI, Denies erythema and Denies rash Neurologic: Reports as per HPI, Denies vertigo, Denies dizziness, Reports headache(s) and Denies weakness Psychiatric: Psychiatric: Reports no additional psychiatric complaints Endocrine: Endocrine: Reports no additional endocrine complaints Hematologic/Lymphatic: Hematologic/Lymphatic: Reports no additional hematologic/lymphatic complaints Allergic/Immunologic: Allergic/Immunologic: Reports no additional allergic/immunologic complaints PMFSH Past Medical History Medical History Epilepsy Obesity Anxiety Depression Surgical History Surgical History No significant past surgical history Family History Family History Father Cerebrovascular accident Mother , Motorcycle accident Unknown family medical history Epilepsy Social History Social History Smoking status: Current every day smoker Tobacco type: e-cigarettes/vaping Second hand tobacco smoke exposure: No Smoking end date: 09/27/21 Alcohol intake: former Substance use: never Do You Feel Safe in your Home?: No Lack of Transportation: No Lack of Food: Never True Current Housing: I Have Housing Concerned About Future Housing: No Difficulty Paying Gas/Electric Bills: No Difficulty Paying for Meds: No Currently Unemployed: No Education: High School Diploma/GED Difficulty w/ Childcare or Family Care: No Living arrangements: with family Occupation/Education: occupation Gender identity (if verbalized by the patient): Female Sexual Orientation (if Verbalized by the Patient): Straight or Heterosexual Spiritual care concerns: No Exam Const: General: no acute distress and ill appearing Nutritional Appearance: well nourished Orientation/consciousness: patient oriented x3 Limitations: no limitations HENMT: Head: normal to inspection Ears: external ears normal and TM's normal bilaterally Face/Nose/Sinus: Normal external nose present and Normal nares present Face and sinus: normal facial exam and sinuses nontender Mouth: Yes Normal oral and palatal mucosa present, Yes lip normal and Yes moist mucous membranes Throat: posterior oropharynx abnormal ( Moderate erythema and edema. No exudate) Neck: Neck: lymphadenopathy ( bilateral anterior cervical) Resp: Effort & Inspection: normal respiratory effort Auscultation: clear to auscultation bilaterally Other: dry cough noted Cardio: Rate: regular rate Rhythm: regular rhythm Skin: General skin exam: normal color Rashes: no rashes Wounds: no wounds Neuro: General: patient oriented x3 Speech: normal speech Gait exam (Neuro): Normal gait present Psych: Mental Status: mental status grossly normal Affect: normal affect Attitude: cooperative Course Course Level of Care: Express Care Visit MDM - URI/Sore Throat MDM Narrative Medical decision making narrative: negative flu and COVID, positive strep. Patient 25 weeks will treat with amoxicillin. Discharge instructions reviewed with patient, as well as provided in writing per nursing staff. The instructions also include specific and strict return/GO TO THE ER as well as f/u information. All questions have been answered, and the patient deny any further questions with discharge and discharge plan. Differential Diagnosis Differential diagnosis: Likely upper respiratory infection, sinusitis, bronchitis, influenza and pharyngitis Medical Records Attestation: I reviewed the patient's medical records. Lab Data Attestation: I reviewed the patient's lab results. Discharge Plan Discharge Clinical Impression: Strep pharyngitis Patient Disposition: Home Condition: Stable Instructions: Antibiotic Form, Strep Throat (ED) Additional Instructions: After 24 hours on antibiotics throw tooth brush away and start using a new one. Do not share drinks. Take Motrin alternating with Tylenol for pain and fever alternating every 4 hours. Increase fluids, avoid caffeine. Follow up with Primary provider if not getting better this week Patient Language: Telugu Prescriptions: New amoxicillin 875 mg tablet 875 mg PO Q12H Qty: 20 0RF No Action citalopram 10 mg tablet dextroamphetamine-amphetamine 10 mg tablet dextroamphetamine-amphetamine 30 mg capsule,extended release 24hr PO Follow-up/Referrals: Gregorio,MD Duy [Primary Care Provider] - Time of Disposition: 17:39
[2024-12-17 17:25] VITALS: BP 107/74; PULSE 121; RESP 16; TEMP 37; O2SAT 99
[2024-12-17 17:40] LABS: EDCOVIDSCREEN Negative (Negative); EDINFLUASCREEN Negative (Negative); EDINFLUBSCREEN Negative (Negative); EDSTREPNEGPOS1 Positive (Negative)
== END 2024-12-17 17:40 | disposition home or self-care (01) ==
PROVIDERS: Emergency Provider Nurse Practitioner Family; PCP Hospitalist
DX: J02.0 Streptococcal pharyngitis (principal); Z20.822 Contact with and (suspected) exposure to COVID-19; Z87.891 Personal history of nicotine dependence; E66.9 Obesity, unspecified; Z68.34 Body mass index [BMI] 34.0-34.9, adult
CPT/HCPCS: 87426; 87804; 87880; 99213; G0463

== ENCOUNTER 2025-01-06 09:11 | Outpatient (RCR) | payer OTHER, SELFPAY ==
[2025-01-06 12:01] LABS: Hematocrit 33.5 % (37.0-47.0); Hemoglobin 11.2 g/dL (12.0-15.0)
[2025-01-06 12:27] LABS: Glucose 1 Hour PP 50gm Dose 87 mg/dL
[2025-01-06 12:54] LABS: Syphilis IgG/IgM Antibody Non-Reactive (Nonreactive)
[2025-01-06 13:03] LABS: HIV 1/2 Ab P24 Ag Result Negative (Negative)
[2025-01-09] MEDS: RHO(D) IMMUNE GLOBULIN 300 MCG/2 ML SYRINGE IM (15:44)
== END 2025-04-06 23:59 | disposition home or self-care (01) ==
LOC: ANHLAB 09:11
PROVIDERS: PCP Hospitalist; Visit Provider Advanced Practice Midwife
DX: Z11.4 Encounter for screening for human immunodeficiency virus [HIV] (principal); Z11.3 Encounter for screening for infections with a predominantly sexual mode of transmission; Z29.13 Encounter for prophylactic Rho(D) immune globulin; O36.0190 Maternal care for anti-D [Rh] antibodies, unspecified trimester, not applicable or unspecified; Z3A.00 Weeks of gestation of pregnancy not specified
CPT/HCPCS: 36415; 82947; 85014; 85018; 85461; 86593; 86703; 86850; 86900; 86901; 90384; 96372; G0432; J2790

== ENCOUNTER 2025-01-31 10:00 | Outpatient (RCR) | payer OTHER, SELFPAY ==
--- NOTE | 2025-01-02 14:08 | OPREHPOC ---
Outpatient Therapy Plan of Care This is a Multidisciplinary Plan of Care that may contain components documented by all disciplines (PT, OT, and ST.) PT Problem 1 PT Problem #1 Knowledge Deficit PT Goal 1 Goal / Goal Update 1. Patient will perform independent HEP Target Visit 2 PT Problem 2 PT Problem #2 Pain PT Goal 1 Goal / Goal Update 1. Patient able to do all typical activities with pain no higher than 4/10 Target Visit 8 PT Problem 3 PT Problem #3 Impaired Strength PT Goal 1 Goal / Goal Update 1. Improve constantine hip abduction to 5/5 to support spine with progressing for ADL participation Target Visit 8
--- NOTE | 2025-01-02 14:08 | PTOPEVAL1 ---
Assessment and note entered by Sonya Elam DPT Evaluation Information Assessment Status Evaluation ICD-10 Condition Codes (PT) Pain in low back M54.50,Stress incontinence N39.3 Subjective Information Pt reports she is 28 weeks and having posterior low back and tailbone pain. Sometimes wraps around her hip and down her leg. Mostly on the R but has been on the L recently. Highest pain 7-8/10 and lowest 0/10. Denies n/t. Pain increases with general activity including caring for her other 2 kids and walking long distances. When pain is too high she has to sit down and rest . Pt is having urinary incontinence a few times a month, has been enough to change clothes at time. Denies pain with urination most of the time although thinks she has a UTI currently. Voiding 25 times a day right now while , states her normal is about 7. Up 3 times at night currently, usually 0 at night. Patient goal: get rid of pain, fix the problem Returns to MD on Thursday. Reported Pain Level Pain Score 3: Self Report Assessment PT Clinical Summary The patient is currently 28 weeks with reports of radiating LBP as well as urinary incontinence. She presents with decreased hip strength, signs of neural tension, and SIJ impairments which are contributing to her pain and difficulty with typical activities including caring for her other children. She will highly benefit from therapy to address her impairments in order to reduce pain and incontinence and to restore full function. Plan of Care Interventions Hot Pack/Cold Pack,Manual Therapy,Neuro Re- education,Patient/Caregiver Education,Therapeutic Activities,Therapeutic Exercise PT Services Indicated Yes Treatment Frequency and 1-2 times a week for 4-8 visits Duration These treatments will address the objective and functional deficits as defined above. The patient will be advanced safely and appropriately in order for the patient to progress towards his/her prior level of function. Additional exercises will be introduced and as well as a comprehensive home exercise program upon discharge, if needed, ?to ensure carryover of functional gains achieved in the clinic. This treatment plan has been reviewed and agreement upon by the patient.
--- NOTE | 2025-01-13 09:44 | PCPTNOTE ---
Patient did not show up for appointment scheduled on 01/13/25.
--- NOTE | 2025-03-09 09:56 | PTOPDC ---
Assessment and note entered by Sonya Elam DPT Evaluation Information Assessment Status Discharge - Pt Not Present ICD-10 Condition Codes (PT) Pain in low back M54.50,Stress incontinence N39.3 Subjective Information - Assessment PT Clinical Summary The patient has not attended therapy since 01/31/25 . Her case will be discharged this date. Plan of Care PT Services Indicated No
== END 2025-03-09 15:29 | disposition home or self-care (01) ==
LOC: ANHPT 10:00
PROVIDERS: PCP Hospitalist; Visit Provider Advanced Practice Midwife
DX: M54.30 Sciatica, unspecified side (principal)
CPT/HCPCS: 97112; 97140; 97161; 97530

== ENCOUNTER 2025-03-03 00:01 | Inpatient (IN) | payer OTHER, SELFPAY ==
[2025-03-03] VITALS (233 sets, daily range): BP systolic 74–134; BP diastolic 36–84; PULSE 68–129; RESP 16; TEMP 36.3–36.9; O2SAT 94–100; BMI 37.0
--- OUTSIDE RECORDS SUMMARY | 2025-03-03 00:17 | XMS_ITS | Clinical Summary ---
Author Organization [facility] Address [address] [place] [address] Care Team Providers Care Cabinetmaker Maintenance Name Role Phone Phil Tompkins MD Primary Care Provider [phone] Source Comments [facility],non-owned Affiliates and Associated Physician Practices is amultiple site organization consisting of ambulatory clinics and hospital sitesin [place], [place], [place] and [place]. This disclosure is being madepursuant to the Care Everywhere program and may not contain all information available regarding this patient. Last updated 18.[facility] Allergies No known active allergies Medications * Be aware that medications may not be up to date on this document. Alwaysverify current medications with the patient. Etonogestrel (IMPLANON SC) Active Active Problems Problem [...] epilepticus Assessment & Plan (03/16/2017 4:55 PM DIET KITCHEN COOK): Assessment: 17 y.o. female with PMH of [...] drink = 0.6 oz pur e alcohol) Comments No Sex and Gender Information Value Date Recorded Sex Assigned at Not on file Legal Sex Female 1:01 PM DIET KITCHEN COOK Gender Identity Not on file Sexual Orientation [...] lb 2.8 oz) 05/19/2017 1:20 P M DIET KITCHEN COOK Height 158.3 cm (5' 2.32) 05/19/2017 1:20 PM CS T Body Mass Index 28.81 05/19/2017 1:20 PM DIET KITCHEN COOK Plan of Treatment Health Maintenance Due Date Last Done Comments HIV SCREENING 2014 HPV VACCINE (1 - 3-dose series) 2014 CHLAMYDIA/GONORRHEA SCREENING 2015 HEPATITIS C SCREENING 02/25/2017 DTAP/TDAP/TD VACCINES (1 - Tdap) 2018 HEPATITIS B VACCINE (1 of 3 - 19+ 3-dose series) 2018 DEPRESSION SCREENING 05/11/2024 COVID-19 VACCINE ( - 2023-2 5 season) 2025 INFLUENZA VACCINE (#1) 2025 ZOSTER VACCINE (1 of 2) 2049 HIB VACCINE Aged Out No longer eligi ble based on patient's age to complete this topic MENINGOCOCCAL (Group B) VACC INE SHARED DECISION-MAKING Aged Out No longer eligibl e based on patient's age to complete this topic MENINGOCOCCAL GROUPS A/C/Y/W VACCINE Aged Out No longer eligible b ased on patient's age to complete this topic PNEUMOCOCCAL VACCINE Aged Out No long er eligible based on patient's age to complete this topic Insurance [facility] MED[employer] [place] Advance Directives Documents on File Type Date Recorded Patient Parts Driver Expl anation Adv Directive/Living Will/POA 01/15/2012 10:46 AM * Full Code (Latest Code Status on File) Date Activated Date Inactivated Comments 09/14/2017 11:45 AM 09/18/2017 2:06 PM Care Teams Cabinetmaker Maintenance Relationship Specialty Start Date End Date Phil oTmpkins MD [address] [place] [address] PCP - General 06/09/19
--- OUTSIDE RECORDS SUMMARY | 2025-03-03 00:17 | XMS_ITS | Data Portability ---
Author Organization [facility] Address [address] [place] [address] Care Team Providers Care Monogram Operator Name Role Phone KAYLA HODGE Primary Care Provider Assessment Encounter Date Assessment Date Assessment LastModified by Organization Details LastModified Time 02/17/2025 02/17/2025 Patient is _34__weeks . Discussed plan. Not available 02/17/2025 12:18:48 Plan of Treatment Reminders Order Date Submit Date Provider Last Modified By Organization Details Last Modified Time Details Appointments INDUCTION 2024 12:01A M Carmela Hawthorne CNM Not available Not available Not available Lab bile acids, total, serum 2024 [facility] (Lab), [address], [place], [address], 02/21/2025 10:45:24 CMP, serum or plasma 2024 [facility] (Lab), [address], [place], [address], 02/21/2025 10:45:23 iron + TIBC + ferritin, serum 2024 [facility] (Lab), [address] [place], [address], 02/21/2025 10:45:23 CBC w/ auto diff 2024 [facility] (Lab), [address], [place], [address], 02/21/2025 10:45:22 Referral None recorded. Procedures None recorded. Surgeries None recorded. Imaging non-stres s test 2024 025 [email or web address], [address], [place], [address], 03/01/2025 16:47:51 non-stres s test 2024 025 [email or web address] [address], [address], [place], [address], 02/17/2025 13:08:12 US, obstetric , follow-up 2024 025 [email or web address] [address], [address], [place], [address], 01/31/2025 20:45:20 Medication Orders ursodiol 400 mg capsule 2024 025 [place] [address] [id number], [address], [place], [address], 03/01/2025 10:25:46 ursodiol 300 mg capsule 2024 025 [place] [id number], [address], [place], [address], 02/17/2025 12:27:36 Patient TargetsNo targets recorded. Patient InstructionsNo instructions recorded. Reason for Referral None Reported. Results Created Date Observation Date Name Description Value Unit Range Abnormal Flag Note LastModifiedBy Organization Detail LastModifiedTime 01/20/2001/19/2025 CULTU RE: URINE result report SEE RESULT S BELOW abnormal Test: Cultu re: Urine Speci men Sourc e: Urine - Clean Catch Speci men Type: Urine Speci men Date: 2024 1328 Resul t Date: 2024 0652 Resul t Statu s: Final resul t Abnor mal: Yes Resul bebo Lab: [facility] [address] [facility] [address] Tel: CULTU RE ----- ----- ----- --- >100, 000 CFU/m l Esche sami a coli (Abno rmal) SUSCE PTIBI LITY ----- ----- ----- --- Esche sami a coli METHO D MARIETTA ----- ----- ----- ----- ----- ---- ----- ----- ----- ----- ----- - AMPIC ILLIN >16 ug/mL Resis tant AMPIC ILLIN /SULB ACTAM 16 ug/mL Inter media te AZTRE ONAM <=4 ug/mL Susce ptibl e CEFAZ FAISAL 4 ug/mL Susce ptibl e CEFEP JERRY <=2 ug/mL Susce ptibl e CEFTA ZIDIM E <=1 ug/mL Susce ptibl e CEFTR IAXON E <=1 ug/mL Susce ptibl e CIPRO FLOXA ABDIAZIZ <=0.2 5 ug/mL Susce ptibl e LEVOF LOXAC IN <=0.5 ug/mL Susce ptibl e MEROP ENEM <=1 ug/mL Susce ptibl e NITRO FURAN TOIN <=32 ug/mL Susce ptibl e PIPER ACILL IN/TA ZOBAC MARTINEZ <=8 ug/mL Susce ptibl e TOBRA MYCIN 4 ug/mL Inter media te TRIME THOPR IM/GILLESPIE LFAME THOXA ZOLE <=2 ug/mL Susce ptibl e Not Available [facility] (Lab) [address] , [place], [address], 01/22/2025 07:55:56 02/21/20 25 02/20/2025 CBC W/DIF F WBC 15.9 10'3/ uL 3.5-10 .5 high Not Available [facility] (Lab) [address], [place], [address], 02/21/2025 10:45:22 02/21/20 25 02/20/2025 CBC W/DIF F RBC 4.10 10'6/ uL (based on docume nted legal sex) 3.80-5 .20 Not Available [facility] (Lab) [address], [place], [address], 02/21/2025 10:45:22 02/21/20 25 02/20/2025 CBC W/DIF F HGB 11.9 g/dL (based on docume nted legal sex) 11.6-1 5.4 Not Available [facility] (Lab) [address], [place], [address], 02/21/2025 10:45:22 02/21/20 25 02/20/2025 CBC W/DIF F HCT 36.7 % (based on docume nted legal sex) 34.0-4 5.0 Not Available [facility] (Lab) [address], [place], [address], 02/21/2025 10:45:22 02/21/20 25 02/20/2025 CBC W/DIF F MCV 89.5 fL 80.0-9 9.0 Not Available [facility] (Lab) [address], [place], [address], 02/21/2025 10:45:22 02/21/20 25 02/20/2025 CBC W/DIF F MCH 29.0 pg 27.0-3 4.0 Not Available [facility] (Lab) [address], [place], [address], 02/21/2025 10:45:22 02/21/20 25 02/20/2025 CBC W/DIF F MCHC 32.4 g/dL 32.0-3 5.5 Not Available [facility] (Lab) [address], [place], [address], 02/21/2025 10:45:22 02/21/20 25 02/20/2025 CBC W/DIF F RDW 13.0 % 11.0-1 5.0 Not Available [facility] (Lab) [address], [place], [address], 02/21/2025 10:45:22 02/21/20 25 02/20/2025 CBC W/DIF F plt 236 10'3/ uL 150-40 0 Not Available [facility] (Lab) [address], [place], [address], 02/21/2025 10:45:22 02/21/20 25 02/20/2025 CBC W/DIF F MPV 10.9 fL 8.8-12 .1 Not Available [facility] (Lab) [address], [place], [address], 02/21/2025 10:45:22 02/21/20 25 02/20/2025 CBC W/DIF F NRBC's 0.0 % 0.0 Not Available [facility] (Lab) [address], [place], [address], 02/21/2025 10:45:22 02/21/20 25 02/20/2025 CBC W/DIF F absolute NRBCs 0.0 10'3/ uL no refere nce range establ ished Not Available [facility] (Lab) [address], [place], [address], 02/21/2025 10:45:22 02/21/20 25 02/20/2025 CBC W/DIF F neutrophils 76.6 % 34.0-7 3.0 high Not Available [facility] (Lab) [address], [place], [address], 02/21/2025 10:45:22 02/21/20 25 02/20/2025 CBC W/DIF F lymphocytes 16.2 % 15.0-5 0.0 Not Available [facility] (Lab) [address], [place], [address], 02/21/2025 10:45:22 02/21/20 25 02/20/2025 CBC W/DIF F monocytes 5.3 % 1.0-15 .0 Not Available [facility] (Lab) [address], [place], [address], 02/21/2025 10:45:22 02/21/20 25 02/20/2025 CBC W/DIF F eosinophils 0.3 % 0.0-8. 0 Not Available [facility] (Lab) [address], [place], [address], 02/21/2025 10:45:22 02/21/20 25 02/20/2025 CBC W/DIF F basophils 0.3 % 0.0-2. 0 Not Available [facility] (Lab) [address], [place], [address], 02/21/2025 10:45:22 02/21/20 25 02/20/2025 CBC W/DIF F immature granulocytes 1.3 % no define d refere nce range Immat ure Granu locyt es (IG) repre sents autom ated enume ratio n of Metam yeloc ytes, Myelo cytes and Promy elocy tom when IG is < 5%. Blast s are not inclu ded in IG and repor marvin separ ately if prese nt. Not Available [facility] (Lab) [address], [place], [address], 02/21/2025 10:45:22 02/21/20 25 02/20/2025 CBC W/DIF F absolute neutrophils 12.2 10'3/ uL 1.5-8. 0 high Not Available [facility] (Lab) [address], [place], [address], 02/21/2025 10:45:22 02/21/20 25 02/20/2025 CBC W/DIF F absolute lymphocytes 2.6 10'3/ uL 1.0-4. 0 Not Available [facility] (Lab) [address], [place], [address], 02/21/2025 10:45:22 02/21/20 25 02/20/2025 CBC W/DIF F absolute monocytes 0.8 10'3/ uL 0.2-1. 0 Not Available [facility] (Lab) [address], [place], [address], 02/21/2025 10:45:22 02/21/20 25 02/20/2025 CBC W/DIF F absolute eosinophils 0.1 10'3/ uL 0.0-0. 6 Not Available [facility] (Lab) [address], [place], [address], 02/21/2025 10:45:22 02/21/20 25 02/20/2025 CBC W/DIF F absolute basophils 0.1 10'3/ uL 0.0-0. 3 Not Available [facility] (Lab) [address], [place], [address], 02/21/2025 10:45:22 02/21/20 25 02/20/2025 CBC W/DIF F absolute immature granulocytes 0.2 10'3/ uL 0.00-0 .10 high Refer ence range s for nonbi nary/ inter sex or unspe cifie d gende r patie nts have not been estab lishe d. Pleas e refer to the sharano wing table for range s estab lishe d for cisge nder patie nts and evalu ate in the clini edilson yani xt of the indiv idual patie nt: https ://sridhar baer book. nm.or g/gen derx Not Available [facility] (Lab) [address], [place], [address], 02/21/2025 10:45:22 02/21/20 25 02/20/2025 CMP(C OMPRE HENSI VE METAB OLIC PANEL ) sodium 138 mmol/ L 133-14 6 Not Available [facility] (Lab) [address], [place], [address], 02/21/2025 10:45:23 02/21/20 25 02/20/2025 CMP(C OMPRE HENSI VE METAB OLIC PANEL ) potassium 3.9 mmol/ L 3.5-5. 1 Not Available [facility] (Lab) [address], [place], [address], 02/21/2025 10:45:23 02/21/20 25 02/20/2025 CMP(C OMPRE HENSI VE METAB OLIC PANEL ) chloride 103 mmol/ L 98-107 Not Available [facility] (Lab) [address], [place], [address], 02/21/2025 10:45:23 02/21/20 25 02/20/2025 CMP(C OMPRE HENSI VE METAB OLIC PANEL ) carbon dioxide 27 mmol/ L 21-31 Not Available [facility] (Lab) [address], [place], [address], 02/21/2025 10:45:23 02/21/20 25 02/20/2025 CMP(C OMPRE HENSI VE METAB OLIC PANEL ) anion gap 8 mmol/ L 4-13 Not Available [facility] (Lab) [address], [place], [address], 02/21/2025 10:45:23 02/21/20 25 02/20/2025 CMP(C OMPRE HENSI VE METAB OLIC PANEL ) blood urea nitrogen 6 mg/dL 7-25 low Not Available [facility] (Lab) [address], [place], [address], 02/21/2025 10:45:23 02/21/20 25 02/20/2025 CMP(C OMPRE HENSI VE METAB OLIC PANEL ) creatinine 0.60 mg/dL 0.60-1 .30 Not Available [facility] (Lab) [address], [place], [address], 02/21/2025 10:45:23 02/21/20 25 02/20/2025 CMP(C OMPRE HENSI VE METAB OLIC PANEL ) egfrcr (CKD-epi 2020) >90 mL/mi n/1.7 3_m2 >=60 Not Available [facility] (Lab) [address], [place], [address], 02/21/2025 10:45:23 02/21/20 25 02/20/2025 CMP(C OMPRE HENSI VE METAB OLIC PANEL ) calcium 8.6 mg/dL 8.3-10 .5 Not Available [facility] (Lab) [address], [place], [address], 02/21/2025 10:45:23 02/21/20 25 02/20/2025 CMP(C OMPRE HENSI VE METAB OLIC PANEL ) glucose 85 mg/dL 70-100 Not Available [facility] (Lab) [address], [place], [address], 02/21/2025 10:45:23 02/21/20 25 02/20/2025 CMP(C OMPRE HENSI VE METAB OLIC PANEL ) protein, total 6.1 g/dL 6.4-8. 3 low Not Available [facility] (Lab) [address], [place], [address], 02/21/2025 10:45:23 02/21/20 25 02/20/2025 CMP(C OMPRE HENSI VE METAB OLIC PANEL ) albumin 3.2 g/dL 3.5-5. 0 low Not Available [facility] (Lab) [address], [place], [address], 02/21/2025 10:45:23 02/21/20 25 02/20/2025 CMP(C OMPRE HENSI VE METAB OLIC PANEL ) ALT 8 units /L 9-43 low Not Available [facility] (Lab) [address], [place], [address], 02/21/2025 10:45:23 02/21/20 25 02/20/2025 CMP(C OMPRE HENSI VE METAB OLIC PANEL ) alkaline phosphatase 145 units /L 34-104 high Not Available [facility] (Lab) [address], [place], [address], 02/21/2025 10:45:23 02/21/20 25 02/20/2025 CMP(C OMPRE HENSI VE METAB OLIC PANEL ) AST 11 units /L 13-39 low Not Available [facility] (Lab) [address], [place], [address], 02/21/2025 10:45:23 02/21/20 25 02/20/2025 CMP(C OMPRE HENSI VE METAB OLIC PANEL ) bilirubin, total 0.3 mg/dL 0.2-1. 2 Not Available [facility] (Lab) [address], [place], [address], 02/21/2025 10:45:23 02/21/20 25 02/20/2025 DANA TIN / IRON / TRANS DANA N / TIBC iron 38 ug/dL 40-170 low Not Available [facility] (Lab) [address], [place], [address], 02/21/2025 10:45:23 02/21/20 25 02/20/2025 DANA TIN / IRON / TRANS DANA N / TIBC transferrin 428 mg/dL 200-36 0 high Not Available [facility] (Lab) [address], [place], [address], 02/21/2025 10:45:23 02/21/20 25 02/20/2025 DANA TIN / IRON / TRANS DANA N / TIBC ferritin 10.6 NG/mL 8.0-25 2.0 Not Available [facility] (Lab) [address], [place], [address], 02/21/2025 10:45:23 02/21/20 25 02/20/2025 DANA TIN / IRON / TRANS DANA N / TIBC TIBC 599 ug/dL 250-45 0 high Not Available [facility] (Lab) [address], [place], [address], 02/21/2025 10:45:23 02/21/20 25 02/20/2025 DANA TIN / IRON / TRANS DANA N / TIBC iron saturation 6 % 20-55 low Not Available [facility] (Lab) [address], [place], [address], 02/21/2025 10:45:23 02/21/20 25 02/20/2025 BILE ACIDS , TOTAL bile acids, total 9 umol/ L 0-10 Test Perfo rmed by: [facility] [address] [address] Not Available [facility] (Lab) [address], [place], [address], 02/21/2025 10:45:24 02/01/20 25 01/31/2025 US, obste tric, follo w-up No observ ation record ed. [email or web address] [address], [place], [address], 01/31/2025 12:30:34 02/01/20 25 01/31/2025 US, obste tric, follo w-up No observ ation record ed. [email or web address] [address], [place], [address], 02/01/2025 12:15:01 02/18/20 25 02/17/2025 non-s tress test No observ ation record ed. [email or web address] [address], [place], [address], 02/17/2025 14:00:56 02/18/20 non-s tress test No observ ation record ed. [email or web address] [address], [place], [address], 02/17/2025 14:21:17 03/01/20 25 03/01/2025 non-s tress test No observ ation record ed. [email or web address] [address], [place], [address], 03/01/2025 17:33:51 03/01/20 25 non-s tress test No observ ation record ed. [email or web address] [address], [place], [address], 03/01/2025 16:18:35 Result Notes None recorded. Problems Name Problem SNOMED Code Status Onset Date Resolution Date Notes Provider Name and Address Organization Details Recorded Time Mixed anxiety and depressi ve disorder 220096073 Completed Zoloft and Wellbutr in [facility] 3 17:04:59 Seizure disorder 134211266 Completed does not require treatmen t no seizures since 2014, has a neurolog ist, sees him annually . [facility] 3 17:04:59 RhD negative 555713038 Completed Rhogam received 03/09/22 [facility] 3 17:04:59 growth abnormal ity 763429965 Completed some growth paramete rs are low [facility] 3 17:04:59 Seizure disorder 917969307 Completed historic al - resolved in high school [facility] 4 13:11:38 Mixed anxiety and depressi ve disorder 369887028 Completed restarte d med - zolft 50mg on 12/22/22 [facility] 4 13:11:38 Cholesta sis of pregnanc y 009696916 Completed historic al - previous pregnanc y, delivere d at 37 weeks Tapan Portillo null, [facility] 4 13:11:38 Postpart um depressi on [id number] Completed Tapan Portillo null, [facility] 4 13:11:38 Prophyla ctic immunoth erapy Completed rhogam at 28wks received 03/26 Tapan Portillo null, [facility] 4 13:11:38 Obesity 390547929 Completed antenata l testing 37 wks Tapan [facility], [facility] 4 13:11:38 Pregnanc y 44810690 Completed 202206/11/2023 Gill Dubon null, [facility] 5 13:50:11 Mixed anxiety and depressi ve disorder 112689927 Active 2024 Gill Dubon null, [facility] 5 13:58:13 Pregnanc y 97934368 Active 2024 Gill Dubon null, [facility] 5 13:50:11 Attentio n deficit hyperact ivity disorder 769772224 Active 2024 Gill Dubon null, [facility] 5 13:58:23 Headache 13492921 Active 2024 Gill Dubon null, [facility] 5 13:58:47 Mixed anxiety and depressi ve disorder 834074869 Active 2024 Gill Dubon null, [facility] 5 13:58:13 Attentio n deficit hyperact ivity disorder 912465203 Active 2024 Gill Dubon null, [facility] 13:58:23 Headache 06497268 Active 2024 Gill carey [facility] 13:58:47 Sciatica 09534837 Active 2024 PT referral Dimitris Outpatie nt 11/15 pt schedule d 01/02 1:15PM Marilia Pavan carey [facility] 16:29:43 Problem Notes None recorded. Procedures Surgical History Date Name Laterality Status Provider Name and Address Organization Details Recorded Time 08/18/19 Date of Last Pap Smear completed Gill Dubon [facility] 08/17/2024 21:51:35 05/11/19 05 Tonsillectomy completed Gill Dubon [facility] 09/27/2021 16:28:08 05/11/19 02 operation on oral cavity completed Gill Dubon [facility] 09/27/2021 16:28:34 Imaging Results None recorded. Procedure Notes None recorded. Medical Equipment None Reported. Allergies No known drug allergies Medications Name Sig Start Date Stop Date Status Note LastModified by Organization Details LastModified Time cyclobenzap rine 10 mg tablet 12/03 completed Not Available Not Available Not Available bupropion HCl SR 150 mg tablet,12 hr sustained-r elease Take 1 tablet twice a day by oral route. 04/17 completed Not Available Not Available Not Available citalopram 40 mg tablet TAKE 1 TABLET BY MOUTH EVERY DAY 07/27 completed Not Available Not Available Not Available citalopram 10 mg tablet TAKE 1 TABLET BY MOUTH EVERY DAY 10/06 completed Not Available Not Available Not Available docusate calcium 240 mg capsule 12/03 completed Not Available Not Available Not Available ondansetron HCl 4 mg tablet TAKE 1 TABLET BY MOUTH EVERY 4-6 HOURS NEEDED FOR NAUSEA AND VOMITING 02/18 completed Not Available Not Available Not Available prednisone 20 mg tablet 40 MG ORALLY DAILY FOR 5 DAYS 09/03 completed Not Available Not Available Not Available dextroamphe tamine-amph etamine 10 mg tablet TAKE 1 TABLET (10 MG TOTAL) BY MOUTH DAILY AFTER LUNCH 07/27 completed Not Available Not Available Not Available sertraline 100 mg tablet TAKE 1 & 1/2 TABLETS BY MOUTH EVERY DAY active Not Available Not Available No t Available penicillin V potassium 500 mg tablet TAKE 1 TABLET TWICE A DAY BY ORAL ROUTE FOR 7 DAYS. 09/27 completed Not Available Not Available Not Available hydralazine 25 mg tablet TAKE 1 TABLET BY MOUTH EVERY 8 HOURS NEEDED 09/27 completed Not Available Not Available Not Available metronidazo le 500 mg tablet Take 1 tablet every 12 hours by oral route for 7 days. 12/16 completed Not Available Not Available Not Available amoxicillin 500 mg tablet TAKE 1 TABLET BY MOUTH EVERY 12 HOURS 07/27 completed Not Available Not Available Not Available Macrobid 100 mg capsule Take 1 capsule twice a day by oral route for 7 days. 02/05 completed Not Available Not Available Not Available amoxicillin 875 mg tablet TAKE 1 TABLET BY MOUTH EVERY 12 HOURS 01/06 completed Not Available Not Available Not Available citalopram 20 mg tablet Take 1 tablet every day by oral route. 07/27 completed Not Available Not Available Not Available dextroamphe tamine-amph etamine ER 20 mg 24hr capsule,ext end release TAKE 1 CAPSULE BY MOUTH EVERY DAY IN THE MORNING 07/27 completed Not Available Not Available Not Available dicyclomine 20 mg tablet TAKE 1 TABLETS BY MOUTH 4 TIMES A DAY FOR 10 DAYS 09/03 completed Not Available Not Available Not Available benzonatate 100 mg capsule TAKE 1 CAPSULE BY MOUTH TWICE A DAY NEEDED 09/03 completed Not Available Not Available Not Available cephalexin 500 mg capsule TAKE 1 CAPSULE BY MOUTH FOUR TIMES DAILY FOR 10 DAYS 03/24 completed Not Available Not Available Not Available promethazin e 25 mg tablet TAKE 1 TABLET BY MOUTH EVERY 6 HOURS NEEDED FOR NAUSEA AND VOMITING 03/24 completed Not Available Not Available Not Available ursodiol 300 mg capsule TAKE 1 CAPSULE BY MOUTH TWICE A DAY active Not Available Not Available No t Available sertraline 25 mg tablet TAKE 1 TABLET BY MOUTH EVERY DAY 09/27 completed Not Available Not Available Not Available cephalexin 500 mg tablet TAKE 1 TABLET BY MOUTH EVERY 12 HOURS FOR 7 DAYS 03/24 completed Not Available Not Available Not Available dextroamphe tamine-amph etamine ER 10 mg 24hr capsule,ext end release TAKE 1 CAPSULE BY MOUTH EVERY DAY IN THE MORNING 07/27 completed Not Available Not Available Not Available hydroxyzine HCl 25 mg tablet TAKE 1 TABLET 3 TIMES A DAY BY ORAL ROUTE NEEDED, FOR ANXIETY/S LEEP. 11/04 completed Not Available Not Available Not Available ibuprofen 600 mg tablet 06/11 completed Not Available Not Available Not Available scopolamine 1 mg over 3 days transdermal patch Apply 1 patch every 72 hours by transderm al route. 11/14 completed Not Available Not Available Not Available albuterol sulfate HFA 90 mcg/actuati on aerosol inhaler INHALE 2 PUFFS 4 TIMES A DAY NEEDED FOR SHORTNESS OF BREATH OR FOR WHEEZE 10/06 completed Not Available Not Available Not Available dextroamphe tamine-amph etamine ER 30 mg 24hr capsule,ext end release TAKE 1 CAPSULE BY MOUTH EVERY DAY IN THE MORNING 07/27 completed Not Available Not Available Not Available ondansetron 4 mg disintegrat ing tablet DISSOLVE 1 TABLET IN MOUTH EVERY 8 HOURS NEEDED FOR NAUSEA AND VOMITING 01/19 completed Not Available Not Available Not Available sertraline 50 mg tablet Take 1 tablet every day by oral route. 09/27 completed Not Available Not Available Not Available dextroamphe tamine-amph etamine 5 mg tablet TAKE 1 TABLET (5 MG TOTAL) BY MOUTH DAILY AFTER LUNCH 07/27 completed Not Available Not Available Not Available metoclopram archie 10 mg tablet TAKE 1 TABLET BY MOUTH FOUR TIMES A DAY 09/27 completed Not Available Not Available Not Available escitalopra m 10 mg tablet 12/03 completed Not Available Not Available Not Available escitalopra m 20 mg tablet Take 1 tablet every day by oral route. 10/29 completed Not Available Not Available Not Available cyclobenzap rine 5 mg tablet TAKE 1 TABLET BY MOUTH THREE TIMES A DAY NEEDED 01/19 completed Not Available Not Available Not Available bupropion HCl XL 150 mg 24 hr tablet, extended release TAKE 1 TABLET BY MOUTH EVERY DAY active Not Available Not Available No t Available active Not Available Not Avai lable Not Available Vitamin 09/03 completed Not Available Not Available Not Available Vyvanse 20 mg capsule TAKE 1 CAPSULE (20 MG TOTAL) BY MOUTH EVERY MORNING FOR 14 DAYS 10/29 completed Not Available Not Available Not Available Vyvanse 40 mg capsule TAKE 1 CAPSULE (40 MG TOTAL) BY MOUTH EVERY MORNING FOR 14 DAYS 10/29 completed Not Available Not Available Not Available butalbital- acetaminoph en-caffeine 50 mg-300 mg-40 mg capsule TAKE 1 CAPSULE BY MOUTH EVERY DAY 03/11 completed Not Available Not Available Not Available Pankaj Blankenship [facility] spacer USE DIRECTED 10/06 completed Not Available Not Available Not Available bupropion HCl 150 mg tablet,12 hr sustained-r elease(smok ing deterrent) 12/03 completed Not Available Not Available Not Available ursodiol 400 mg capsule TAKE 1 CAPSULE BY MOUTH TWICE A DAY active Not Available Not Available No t Available Zurzuvae 25 mg capsule 09/03 completed Not Available Not Available Not Available Vitals Date Recorded Body height Body mass index (BMI) Body weight Systolic And Diastolic Provider Name and Address Organization Details Last Updated DateTime 02/17/2025 157.48 cm 36.6 kg/m2 84303.47 g 117/80 mm[Hg] Gina Bourgeois [facility] 02/17/2025 12:14:47 Date Recorded Body height Body mass index (BMI) Body weight Systolic And Diastolic Provider Name and Address Organization Details Last Updated DateTime 03/01/2025 157.48 cm 36.9 kg/m2 48817.66 g 92/68 mm[Hg] Maribeth Elizondo [facility] 03/01/2025 16:16:26 Social History Question Answer Notes LastModified by Organizat ion Details LastModified Time Tobacco Smoking Status Former Smoker Keira Rubin [facility] 05/20/2023 10:01:20 Do You Have An Advance Directive? No [email or web address] Information not available 09/27/2021 If You Are , What Was Your Level Of Alcohol Consumption Prior To ? Occasional Information not available 05/20/2023 Are You Blind Or Do You Have Difficulty Seeing? No Information not available 09/27/2021 What Is Your Level Of Caffeine Consumption? Occasional Information not available 09/27/2021 In The 14 Days Before Symptom Onset, Have You Had Close Contact With A Laboratory-confir med COVID-19 While That Case Was Ill? No [email or web address] Information not available 09/27/2021 In The 14 Days Before Symptom Onset, Have You Had Close Contact With A Person Who Is Under Investigation For COVID-19 While That Person Was Ill? No [email or web address] Information not available 09/27/2021 Have You Been To An Area Known To Be High Risk For COVID-19? No [email or web address] Information not available 09/27/2021 Are You Deaf Or Do You Have Serious Difficulty Hearing? No [email or web address] Information not available 09/27/2021 What Type Of Diet Are You Following? REGULAR [email or web address] Information not available 09/27/2021 What Is The Highest Grade Or Level Of School You Have Completed Or The Highest Degree You Have Received? [id number] Information not available 09/27/2021 Are There Any Guns Present In Your Home? No [email or web address] Information not available 09/27/2021 Do You Use Protection During Sex? No Information not available 09/27/2021 Do You Use Your Seat Belt Or Car Seat Routinely? Yes [email or web address] Information not available 09/27/2021 Do You Have Smoke And Carbon Monoxide Detectors In Your Home? Yes [email or web address] Information not available 09/27/2021 How Much Tobacco Do You Smoke? No Information not available 09/27/2021 Do You Use Sunscreen Routinely? No [email or web address] Information not available 09/27/2021 Has Tobacco Cessation Counseling Been Provided? No [email or web address] Information not available 05/20/2023 Have You Used IV Drugs? No [email or web address] Information not available 09/27/2021 Do You Have Difficulty Walking Or Climbing Stairs? No Information not available 05/20/2023 Sex: Unknown Functional Status Question Answer Note LastModified by Organizat ion Details LastModified Time Do you use any illicit or recreational drugs? No [email or web address] Information not available 09/27/2021 Do you or have you ever used any other forms of tobacco or nicotine? Yes Information not available 05/20/2023 What is your level of alcohol consumption? None [email or web address] Information not available 09/27/2021 Are you able to walk independently without assistance or assistive devices? YESWOREST [email or web address] Information not available 09/27/2021 Are you able to care for yourself independently? 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 No Information not available 05/20/2023 Do you or have you ever used e-cigarettes or vape? Current user of electronic cigarettes [email or web address] Information not available 05/20/2023 What is your exercise level? Moderate [email or web address] Information not available 09/27/2021 Mental Status Question Answer Note LastModified by Organization D etails LastModified Time Do you feel stressed (tense, restless, nervous, or anxious, or unable to sleep at night)? [id number] [email or web address] Information not available 02/10/2023 Family History Relationship Description Onset Age of this Age Resolved Age Notes LastModified by Organization Details LastModified Time Unspecified Relation Malignant neoplasm of uterus matern al great grandm a [email or web address] Not available 10/07/2023 09:51:54 Unspecified Relation Malignant neoplasm of ovary matern al great grandm a [email or web address] Not available 09/27/2024 12:34:41 Unspecified Relation Malignant neoplasm of ovary [email or web address] Not available 09/09 12:34:41 Unspecified Relation Malignant neoplasm of uterus [email or web address] Not available 09/09 12:34:41 Brother Substance abuse [email or web address] Not available 10/06 09:51:54 Father Disorder of thyroid gland [email or web address] Not available 10/06 09:51:54 Father Substance abuse [email or web address] Not available 10/06 09:51:54 Mother Anemia Not available 10/07/2023 09:51:54 Mother High risk [email or web address] Not available 10/06 09:51:54 Mother Substance abuse Not available 10/06 09:51:54 Maternal Aunt Malignant neoplasm of breast [email or web address] Not available 10/06 09:51:54 Maternal Aunt Substance abuse [email or web address] Not available 10/06 09:51:54 Maternal Grandmother Malignant neoplasm of breast Not available 10/06 09:51:54 Maternal Grandmother Substance abuse [email or web address] Not available 10/06 09:51:54 Maternal Grandfather Substance abuse [email or web address] Not available 10/06 09:51:54 Medical History Condition Response Allergies (Food, seasonal, environmental ) N Other N Breast Cancer N Drug/Latex Allergies/Reactions N Blood Transfusion N Dermatologic Disorders N Lung Disease N Defects or Inherited Disease N Breast Problem N Gestational Diabetes N Hematologic disorders N Anesthesia Complications N History of STI N Deep Vein Thrombosis N Polycystic ovary syndrome N Anxiety Disorder Y Autoimmune disease N Arthritis N Infertility N Polyps N Acid Reflux (GERD) N History of abnormal pap N Cancer N Stroke N Varicosities N Neurologic/Epilepsy Y Endometriosis N High Cholesterol N Headaches Y Fibromyalgia N Kidney Disease N Heart Problems N Kidney or Bladder Problems N Thyroid Problems N GI Problems N Eating Disorder N Anemia N Art (IVF or FET) N Psychiatric Illness Y Ovarian Cancer N Diabetes N Pulmonary (TB, Asthma) N Hepatitis/Liver Disease N No Past Medical History N Eczema N Urinary Tract Infection N Abuse/Domestic Violence N Asthma N Trauma/Violence N Depression/ depression Y Heart Disease N Pre-Eclampsia N Hypertension N Osteoporosis N Thrombophilias N Gynecological History Statement/Question Response Abnormal Pap N Date of Last Mammogram Date of LMP On BCP's at Conception? N N Was last menstrual period normal N STIs/STDs N HPV Vaccine Y Duration of Flow (days) 5 Current Control Method Sexually Active? Y Menses Monthly Y Date of DEXA bone scan Age of first menstrual cycle 10 Date of Last Pap Smear 08/17/2024 Sexual Problems? N Desired Control Method Unknown LMP Approximate N Obstetrics History GPAL:G 4 P 2 0 1 2 Type Value Full Term 2 Spontaneous 1 Living 2 Total 4 Past Encounters Encounter ID Performer Location Encounter Start Date Encounter Closed Date Diagnosis/Indication Diagnosis SNOMED-CT Code Diagnosis ICD10 Code Diagnosis IMO Codes Diagnosis Note [id number] Tigre Packer MD [facility] [address],[place] [address] 09/27/2021 15:38:20 09/27/2021 16:19:50 Uncertain viability of 523638641 O36.80X9 Z3A.08 [id number] Carmela Hawthorne [facility] [address],[place] [address] 09/27/2021 15:40:00 09/27/2021 16:44:33 Gynecologic examination 94581644 Z01.419 Amenorrhea 34594695 N91. 2 [id number] Tigre Packer MD [facility] [address],[place] [address] 11/04/2021 16:27:25 11/04/2021 17:44:23 screening 953568718 Z36.82 [id number] Tigre Packer MD [facility] [address],[place] [address] 11/04/2021 16:30:00 11/04/2021 17:49:44 Routine care 580959317 Z34.02 Nausea and vomiting 1693 2000 R11.2 [id number] Carmela Hawthorne [facility] [address],[place] [address] 11/29/2021 15:04:25 11/29/2021 15:31:45 Routine care 250652208 Z34.92 Hyperemesi s gravidarum 31488640 O21.0 [id number] Gina Welsh MD [facility] [address],[place] [address] 01/02/2022 16:23:42 01/03/2022 15:31:26 screening 212557439 Z36.3 [id number] Gina Welsh MD [facility] [address],[place] [address] 01/03/2022 12:08:02 01/03/2022 12:53:19 Routine care 803801951 Z34.82 [id number] Gina Welsh MD [facility] [address],[place] [address] 01/23/2022 11:30:54 01/23/2022 13:00:03 screening 652710615 Z36.2 [id number] Tanya Price [facility] [address],[place] [address] 02/06/2022 11:51:01 02/07/2022 16:26:30 Routine care 329917118 Z34.92 [id number] Carmela Hawthorne [facility] [address],[place] [address] 03/07/2022 12:01:14 03/07/2022 12:21:24 Routine care 350243957 Z34.92 Amenorrhea 62433661 N91. 2 [id number] Tigre Packer MD [facility] [address],[place] [address] 03/20/2022 16:23:20 03/20/2022 17:18:35 Routine care 089380683 Z34.02 [id number] Tigre Packer MD [facility] [address],[place] [address] 03/31/2022 11:29:33 03/31/2022 16:04:35 Routine care 161626555 Z34.02 [id number] Tanya Price [facility] [address],[place] [address] 04/17/2022 11:44:33 04/18/2022 15:46:13 Routine care 649878266 Z34.92 Headache 33258531 R51.9 [id number] Carmela Hawthorne [facility] [address],[place] [address] 04/23/2022 09:30:50 04/23/2022 10:41:29 Routine care 358229454 Z34.92 [id number] Tigre Packer MD [facility] [address],[place] [address] 04/28/2022 11:02:35 04/28/2022 14:54:32 Complication occurring during 271300965 O26.613 Z3A.36 [id number] Carmela Hawthorne [facility] [address],[place] [address] 06/11/2022 12:06:42 06/11/2022 12:43:58 care 526500306 Z39.2 handout on mirena given pt to think about BCM Mixed anxi ety and depressive disorder 203153863 F41.8 increase lexapro, monitor sxs to ED if suicidal thoughts, med check 6 weeks or sooner if needed [id number] Tigre Packer MD [facility] [address],[place] [address] 10/29/2022 11:55:15 10/29/2022 12:48:49 Uncertain viability of 357267224 O36.80X0 Z3A.01 [id number] Carmela Hawthorne [facility] [address],[place] [address] 10/29/2022 11:55:37 10/29/2022 13:40:08 Amenorrhea 05564039 N91.2 [id number] Tigre Packer MD [facility] [address],[place] [address] 12/03/2022 13:48:28 12/03/2022 14:32:42 screening 551553124 Z36.82 [id number] Tigre Packer MD [facility] [address],[place] [address] 12/03/2022 13:49:16 12/03/2022 15:22:08 Routine care 090212069 Z34.02 [id number] MD Bob Rodriguez [address],[place] [address] 12/22/2022 14:14:31 12/22/2022 15:07:58 Mixed anxiety and depressive disorder 127204158 F41.8 [id number] Tigre Packer MD [facility] [address],[place] [address] 01/15/2023 11:32:32 01/15/2023 14:08:04 screening 111811859 Z36.3 [id number] Tigre Packer MD [facility] [address],[place] [address] 01/15/2023 11:32:54 01/15/2023 16:05:12 Routine care 129812072 Z34.02 [id number] Tigre Packer MD [facility] [address],[place] [address] 02/10/2023 14:11:48 02/10/2023 15:02:56 screening 176896065 Z36.2 Z3A.22 [id number] Tigre Packer MD [facility] [address],[place] [address] 02/10/2023 14:12:25 02/10/2023 15:30:38 Routine care 281787184 Z34.02 [id number] Tigre Packer MD [facility] [address],[place] [address] 03/10/2023 14:09:40 03/10/2023 15:27:26 Routine care 912962102 Z34.02 [id number] JARON BILLINGS MD [facility] [address],[place] [address] 03/24/2023 11:02:49 03/24/2023 12:05:34 Urinary symptoms 968815955 R39.9 Gestation period, 28 weeks 02571945 Z3A.28 RhD negative 409625417 Z 01.83 [id number] Carmela Hawthorne CNM [facility] [address],[place] [address] 04/10/2023 10:54:18 04/10/2023 11:38:30 Routine care 123383067 Z34.92 Nausea and vomiting 1693 2000 R11.2 [id number] Carmela Hawthorne CNM [facility] [address],[place] [address] 04/24/2023 10:04:28 04/24/2023 10:54:57 Routine care 619059436 Z34.92 [id number] Carmela Hawthorne [facility] [address],[place] [address] 05/06/2023 14:17:51 05/06/2023 14:44:52 Routine care 452567467 Z34.92 [id number] Carmela Hawthorne [facility] [address],[place] [address] 1 05/20/2023 10:00:51 05/20/2023 10:35:33 Routine care 831132086 Z34.92 Nausea and vomiting 1693 2000 R11.2 [id number] Carmela Hawthorne [facility] [address],[place] [address] 06/03/2023 14:15:11 06/03/2023 15:47:22 Routine care 793534865 Z34.92 [id number] JARON BILLINGS MD [facility] [address],[place] [address] 05/27/2023 13:59:22 05/27/2023 15:03:10 Maternal obesity complicating , childbirth and the puerperium, antepartum 6084988712 07 O99.213 Z3A.37 [id number] Tigre Packer MD [facility] [address],[place] [address] 05/27/2023 14:00:13 05/27/2023 16:15:32 Maternal obesity complicating , childbirth and the puerperium, antepartum 9152932253 07 Z3A.37 [id number] Carmela Hawthorne [facility] [address],[place] [address] 05/27/2023 14:15:03 05/27/2023 15:50:38 Routine care 655037661 Z34.92 [id number] Tigre Packer MD [facility] [address],[place] [address] 06/03/2023 14:14:40 06/03/2023 15:30:50 Small for gestational age fetus 042974296 O36.5930 O99.210 Z3A.38 [id number] Tigre Packer MD [facility] [address],[place] [address] 06/03/2023 14:14:56 06/03/2023 15:47:45 Maternal obesity complicating , childbirth and the puerperium, antepartum 7244519502 07 Z3A.38 [id number] Carmela Hawthorne [facility] [address],[place] [address] 09/04/2023 12:06:31 09/04/2023 12:44:04 Mixed anxiety and depressive disorder 326631374 F41.8 continue citalopram monitor sxs to ED if suicidal thoughts, med check 6 weeks or sooner if needed Weight gain 6780041 R63. 5 [employer], continue exercise [id number] Carmela Hawthorne [facility] [address],[place] [address] 10/07/2023 09:44:26 10/07/2023 12:25:48 Mixed anxiety and depressive disorder 316702889 F41.8 continue citalopram monitor sxs to ED if suicidal thoughts, med check 6 weeks or sooner if needed Loss of hair 448828916 L 65.9 ok for otc products [id number] Carmela Hawthorne [facility] [address],[place] [address] 07/27/2024 09:12:00 07/27/2024 10:05:35 Mixed anxiety and depressive disorder 705308962 F41.8 start zoloft daily, hydroxyzin e prn, will schedule with maureen bronson for follow up and continue to see therapist. to ed if any suicidal thoughts Nausea and vomiting 1693 1999 R11.2 [id number] Tigre Packer MD [facility] [address],[place] [address] 08/03/2024 13:55:15 08/03/2024 14:42:48 with uncertain dates 485887193 Z36.87 [id number] MD Bob Rodriguez [address],[place] [address] 08/17/2024 16:44:07 08/17/2024 17:28:21 [id number] [facility] [address],[place] [address] 08/17/2024 16:45:38 08/22/2024 09:18:36 screening 334238103 Z36.89 Gynecologi c examination 37257020 Z01.419 Nausea and vomiting 1693 1999 R11.2 [id number] Tigre Packer MD [facility] [address],[place] [address] 09/27/2024 12:34:16 09/27/2024 13:23:05 screening 180929245 Z36.82 Z3A.13 6572166630 [id number] [facility] [address],[place] [address] 09/27/2024 12:35:34 09/29/2024 02:42:09 Gestation period, 13 weeks 93936888 Z3A.13 1414354 [id number] [facility] [address],[place] [address] 11/04/2024 15:37:50 11/04/2024 16:07:36 Gestation period, 19 weeks 27732096 Z3A.19 7372874 Bacterial vaginosis 4197 31706 N76.0 B96.89 938160 Bilateral sciatica 82036 77692 2460033 M54.31 M54.32 [id number] refer to PT, [id number] MD Bob Rodriguez [address],[place] [address] 11/08/2024 16:27:13 11/09/2024 09:39:44 screening for malformation 990426035 Z36.3 Z3A.20 0104218269 [id number] Tigre Packer MD [facility] [address],[place] [address] 12/01/2024 10:54:29 12/01/2024 12:06:37 Follow-up encounter 079951276 Z36.2 Z3A.23 0262775737 [id number] Carmela Hawthorne [facility] [address],[place] [address] 12/02/2024 11:24:58 12/04/2024 23:50:25 Gestation period, 23 weeks 51607299 Z3A.23 3605076 cont pnv [id number] Carmela Hawthorne [facility] [address] [address] 01/06/2025 12:41:27 01/06/2025 13:09:46 Gestation period, 28 weeks 10367089 Z3A.28 8271675 [id number] [facility] [address],[place] [address] 01/19/2025 11:13:49 01/19/2025 11:59:50 Gestation period, 30 weeks 39889842 Z3A.30 [id number] cont pnv [id number] Tigre Packer MD [facility] [address] [place] [address] 01/31/2025 11:51:15 01/31/2025 12:28:55 Uterine size for dates discrepancy 067873762 O26.843 Z3A.31 6591637 [id number] [facility] [address] [place] [address] 02/17/2025 12:08:53 02/17/2025 12:30:00 Pruritic disorder of skin 1310720972 L29.9 [id number] Gestation period, 34 weeks 45425942 Z3A.34 5706054 [id number] [facility] [address] [place] [address] 02/17/2025 12:33:17 02/17/2025 13:08:12 Cholestasis 25600173 K83.1 33747 [id number] Carmela Hawthorne CNM [facility] [address],[place] [address] 03/01/2025 09:40:25 03/01/2025 10:27:48 Gestation period, 35 weeks 77467394 Z3A.35 [id number] Cholestasi s of 946474793 O26.643 12823821 Pruritic d isorder of skin 6291041451 L29.9 42706 [id number] Carmela Hawthorne CNM [facility] [address],[place] [address] 03/01/2025 15:57:15 03/01/2025 16:47:51 Past history of cholestasis in 1853681775 3763166 Z87.59 Z87.19 [id number] Health Concerns Section Related Observation LastModified by Organization Detai ls LastModified Time None Recorded Concern Status LastModified by Organization Details LastModified Time None Recorded Advance Directives Directive N: Payers Insurance Date Sequence Insurance Name Policy Number Policy Rodriguez Covered Member ID Rodriguez Member ID Guarantor Name 02/26/2025 1 [facility] (MEDICAID HMO) [id number] [facility] [id number] [facility] Notes Date Note Type Note Provider Name and Address Organization Details Recorded Time 02/17/2025 text/html Generic HPI TemplateReported by Patient Carmlea Hawthorne CNM [address], [place], [address], [facility] 02/17/2025 12:29:11 OBGyn Episode Ob Episode Information Episode Created Date Number of Fetuses Patient Bloodtype Patient rh Status Prepregnancy Weight lbs Domestic Partner Domestic Partner Phone Father Name Professor Of Floriculture Status 11/05/19 22 1 O Negative 185 CLOSED Fetus Data First Name Last Name Admitted to NICU Weight (g) Sex Living Outcome Pediatric Complications Fetus ID Race Codes Race Delivery Type Wrenle e 2523.10 55 F true Full Term [id number] Vaginal Delivery Problems Problem Notes Problem Name Start Date End Date Resolution Snomed Code Not e Mixed anxiety and depressive disorder 023146486 Zoloft a nd Wellbutrin Seizure disorder 000565770 batista s not require treatment no seizures since 2014, has a neurologist, sees him annually. growth abnormality 120985324 some growth parameters are low RhD negative 081798629 Rhogam received 03/09/22 Jorge Calculation Initial Jorge Date Initial Exam Date Initial Exam Provider Initial Ultrasound Date Last Menstrual Period Date Ultra Sound Weeks Gestation 05/21/2022 11/04/2021 09/27/2021 6 Eighteen To Twenty Week Jorge Update Ultra Sound Date Fundal Height At Umbil Quickening Date Ultra Sound Latest Weeks Gestation Final Jorge Confirmed By Final Jorge Confirmed Date Final Jorge Date Ultra Sound Latest Days Gestation 0 [email or web address] 11/04/2021 05/21/19 23 0 Pre-cecilia Flowsheet Flowsheet Date 11/04/2021 Galvan Score Blood Edema Fundus Height Fundus Units Glucose Ketones Leukocytes Nitrite Labor Signs Protein Cervic Dilation Cervic Effacement Cervic Station 12 Type Weight in lbs Pre/Post Dialysis Refused Weight 182.485063514172 BP Diastolic BP Location Tested BP Systolic BP Type 73 R arm 109 sitting Fetus Heart Rate Present A 145 Fetus Movement Comments this patient is a 21-year-ol d 1 at 11 weeks gestation who presents for initial care. She is vaccinated. She was given recommendations on other vaccines. She has a history of seizure disorder. She has not been on medication for a long time. Her last seizure was 7 years ago. She sees a neurologist regularly. She has no unremarkable medical, surgical, social history otherwise. We discussed care in detail. She will begin routine care. Flowsheet Date 11/29/2021 Galvan Score Blood Edema Fundus Height Fundus Units Glucose Ketones Leukocytes Nitrite Labor Signs Protein Cervic Dilation Cervic Effacement Cervic Station neg none none trace Type Weight in lbs Pre/Post Dialysis Refused Weight 178.427466097676 BP Diastolic BP Location Tested BP Systolic BP Type 75 108 Fetus Heart Rate Present A 147 Fetus Movement A Yes Comments patient is having nausea, vo miting, back pain, dizzy and has feeling of passing out. zofran, meclazine patch, b6/unisom not helping will rx phenergan, precautions reviewed, ED precautions. plan anatomy at next visit Flowsheet Date 01/02/2022 Galvan Score Blood Edema Fundus Height Fundus Units Glucose Ketones Leukocytes Nitrite Labor Signs Protein Cervic Dilation Cervic Effacement Cervic Station Type Weight in lbs Pre/Post Dialysis Refused BP Diastolic BP Location Tested BP Systolic BP Type Fetus Heart Rate Present Fetus Movement Comments Flowsheet Date 01/03/2022 Galvan Score Blood Edema Fundus Height Fundus Units Glucose Ketones Leukocytes Nitrite Labor Signs Protein Cervic Dilation Cervic Effacement Cervic Station neg trace Type Weight in lbs Pre/Post Dialysis Refused Weight 186.293515483935 BP Diastolic BP Location Tested BP Systolic BP Type 63 96 Fetus Heart Rate Present A 155 Fetus Movement A Yes Comments Doing ok. N/V improving. Her mood is ok. COnstipated, discussed OTCs. Anatomy today incomplete but wnl so far. Will repeat next visit. Flowsheet Date 01/23/2022 Galvan Score Blood Edema Fundus Height Fundus Units Glucose Ketones Leukocytes Nitrite Labor Signs Protein Cervic Dilation Cervic Effacement Cervic Station Type Weight in lbs Pre/Post Dialysis Refused BP Diastolic BP Location Tested BP Systolic BP Type Fetus Heart Rate Present Fetus Movement Comments Flowsheet Date 02/06/2022 Galvan Score Blood Edema Fundus Height Fundus Units Glucose Ketones Leukocytes Nitrite Labor Signs Protein Cervic Dilation Cervic Effacement Cervic Station neg trace 25 none trace Type Weight in lbs Pre/Post Dialysis Refused Weight 192.630516332731 BP Diastolic BP Location Tested BP Systolic BP Type 73 108 Fetus Heart Rate Present A 145 Fetus Movement A Yes Comments Doing well but has had a hea dache for a couple weeks. Rest and tylenol has not helped. Denies v/d or e/p. No edema. BP normal. Pt sent to L&D for medication and labs. Flowsheet Date 03/07/2022 Galvan Score Blood Edema Fundus Height Fundus Units Glucose Ketones Leukocytes Nitrite Labor Signs Protein Cervic Dilation Cervic Effacement Cervic Station neg none 29 none trace Type Weight in lbs Pre/Post Dialysis Refused Weight 197.818702216320 BP Diastolic BP Location Tested BP Systolic BP Type 69 101 Fetus Heart Rate Present A 145 Fetus Movement A Yes Comments patient is having pain, hemo rrhoids, swelling, nausea and vomiting. discussed birthing classes, precautions reviewed, flexeril working for COLON f/u 2 weeks gct today rhogam at dimitris Flowsheet Date 03/20/2022 Galvan Score Blood Edema Fundus Height Fundus Units Glucose Ketones Leukocytes Nitrite Labor Signs Protein Cervic Dilation Cervic Effacement Cervic Station 31 Type Weight in lbs Pre/Post Dialysis Refused Weight 196.637211481095 BP Diastolic BP Location Tested BP Systolic BP Type 77 R arm 113 sitting Fetus Heart Rate Present A 143 Fetus Movement Comments has been having diarrhea for 1 week, nausea precedes, supportive therapy was recommended including fluids, Tylenol, antiemetics, Imodium. Patient follow-up in 2 weeks Flowsheet Date 03/31/2022 Galvan Score Blood Edema Fundus Height Fundus Units Glucose Ketones Leukocytes Nitrite Labor Signs Protein Cervic Dilation Cervic Effacement Cervic Station neg trace 34 none trace Type Weight in lbs Pre/Post Dialysis Refused Weight 197.421938325742 BP Diastolic BP Location Tested BP Systolic BP Type 75 116 Fetus Heart Rate Present A 144 Fetus Movement A Yes Comments patient states that is havin g some BH contractions, ligament pain, cramping, discharge, swelling, nausea and vomiting. outpatient visit to [facility] after some observation. Flowsheet Date 04/17/2022 Galvan Score Blood Edema Fundus Height Fundus Units Glucose Ketones Leukocytes Nitrite Labor Signs Protein Cervic Dilation Cervic Effacement Cervic Station neg trace trace Type Weight in lbs Pre/Post Dialysis Refused Weight 198.364069278992 BP Diastolic BP Location Tested BP Systolic BP Type 67 94 Fetus Heart Rate Present Fetus Movement A Yes Comments Hospital yesterday for upper abdominal pain. What she describes sounds like contraction. States all testing was normal. Occasional headaches. Flexeril helps. Vision becoming more blurry throughout the . Discussed epigastric pain that would be concerning. PIH precautions and PTL precautions discussed. Flowsheet Date 04/23/2022 Galvan Score Blood Edema Fundus Height Fundus Units Glucose Ketones Leukocytes Nitrite Labor Signs Protein Cervic Dilation Cervic Effacement Cervic Station neg trace none trace Type Weight in lbs Pre/Post Dialysis Refused Weight 200.539406337573 BP Diastolic BP Location Tested BP Systolic BP Type 75 108 Fetus Heart Rate Present Fetus Movement A Yes Comments patient is having some pain, contractions, swelling, nausea and vomiting. had flu a last week, feeling a little better, labor precautions has preadmit next week gbs done f/u one week Flowsheet Date 04/28/2022 Galvan Score Blood Edema Fundus Height Fundus Units Glucose Ketones Leukocytes Nitrite Labor Signs Protein Cervic Dilation Cervic Effacement Cervic Station Type Weight in lbs Pre/Post Dialysis Refused BP Diastolic BP Location Tested BP Systolic BP Type Fetus Heart Rate Present Fetus Movement Comments Flowsheet Date 06/11/2022 Galvan Score Blood Edema Fundus Height Fundus Units Glucose Ketones Leukocytes Nitrite Labor Signs Protein Cervic Dilation Cervic Effacement Cervic Station Type Weight in lbs Pre/Post Dialysis Refused Weight 195.045056665463 BP Diastolic BP Location Tested BP Systolic BP Type 76 108 Fetus Heart Rate Present Fetus Movement Comments Menstrual History Last Menstrual Date Menses Monthly On Bcp Conception Prior Menses Frequency Hcg Plus Date Menarche Onset Age Genetic Screening And Infection History Question Response Note Mental Retardation/Autism false Patient's Age Will Be 35 Years Or Older At Estim ated Date of Delivery false Thalassemia (Congolese, Romansh, Mediterranean, Or Background): MCV < 80 false Neural Tube Defect (Meningomyelocele, Spina Bifi da, Or Anencephaly) false Congenital Heart Defect false Down Syndrome false Raheel-Sachs (eg, Scientology, Cajun, Somali-Ledbetter) f alse Kenneth Disease false Sickle Cell Disease Or Trait () false Hemophilia Or Other Blood Disorders false Muscular Dystrophy false Cystic Fibrosis false Azra's Chorea false Intellectual Disability/Autism false If Yes, Was Person Tested For Fragile X? false Other Inherited Genetic Or Chromosomal Disorder false Maternal Metabolic Disorder (eg, Type 1 Diabetes , PKU) false Patient Or Baby's Father Had A Child With Defects Not Listed Above false Recurrent Loss, Or A Stillbirth false Medications (including Suppl ements, Vitamins, Herbs, OTC Drugs), Illicit/Recreational Drugs, Alcohol false If Yes, Agent(s) And Strength/Dosage false Any Other Genetic History false Live With Someone With TB Or Exposed To TB false Patient Or Partner Has History Of Genital Herpes false Rash Or Viral Illness Since Last Menstrual Perio d false History Of STD, Gonorrhea, Chlamydia, HPV, Syphi lis false Other Infection History false History of HIV false History of Hepatitis false Prior GBS-infected child false Hemoglobinopathy Or Carrier false Other Structural Defect false Recent Travel History Outside of Country false Delivery Information Delivery Date Delivery Type Labor Anesthesia Weeks Gestation Incision Type Labor Labor Length Hrs Delivered By Post Complications Tubal Sterilization Discharge Date Comments 2 Induce d Regional-Ep idural 37.1 Carmela Randall CNM is Discharge Information Feeding Method Contraceptive Method Maternal HG B and HCT Levels Ob Episode Information Episode Created Date Number of Fetuses Patient Bloodtype Patient rh Status Prepregnancy Weight lbs Domestic Partner Domestic Partner Phone Father Name Professor Of Floriculture Status 12/04/19 23 1 O Negative 217 CLOSED Fetus Data First Name Last Name Admitted to NICU Weight (g) Sex Living Outcome Pediatric Complications Fetus ID Race Codes Race Delivery Type 3203.49 35 M true Full Term [id number] Vaginal Delivery Problems Problem Notes cf/sma negative 10/2021, His torical Seizure DIsorder Problem Name Start Date End Date Resolution Snomed Code Not e Obesity 995392622 testing 37 wks Seizure disorder [id number] his torical - resolved in high school Mixed anxiety and depressive disorder [id number] restarte d med - zolft 50mg on 12/22/22 Cholestasis of [id number] historical - previous , delivered at 37 weeks depression [id number] Prophylactic immunotherapy [id number] rhogam at 28wk s received 03/26 Jorge Calculation Initial Jorge Date Initial Exam Date Initial Exam Provider Initial Ultrasound Date Last Menstrual Period Date Ultra Sound Weeks Gestation 06/16/2023 12/03/2022 10/29/2022 08/22/2022 7 Eighteen To Twenty Week Jorge Update Ultra Sound Date Fundal Height At Umbil Quickening Date Ultra Sound Latest Weeks Gestation Final Jorge Confirmed By Final Jorge Confirmed Date Final Jorge Date Ultra Sound Latest Days Gestation 0 [email or web address] 12/03/2022 06/16/19 24 0 Pre- Flowsheet Flowsheet Date 12/03/2022 Galvan Score Blood Edema Fundus Height Fundus Units Glucose Ketones Leukocytes Nitrite Labor Signs Protein Cervic Dilation Cervic Effacement Cervic Station 14 Type Weight in lbs Pre/Post Dialysis Refused Weight 216.560833978290 BP Diastolic BP Location Tested BP Systolic BP Type 76 R arm 114 sitting Fetus Heart Rate Present A 145 Fetus Movement Comments this patient is a 22-year-ol d 2 para 1001 at 14 weeks gestation who presents for initial visit. She is vaccinated for COVID. She was vaccinated last year for Tdap and knows she needs another with this . She has history cholestasis of , depression/ anxiety. we discussed care in detail. She will begin routine care. Flowsheet Date 12/22/2022 Galvan Score Blood Edema Fundus Height Fundus Units Glucose Ketones Leukocytes Nitrite Labor Signs Protein Cervic Dilation Cervic Effacement Cervic Station 14 Type Weight in lbs Pre/Post Dialysis Refused Weight 215.113733962806 BP Diastolic BP Location Tested BP Systolic BP Type 74 R arm 108 sitting Fetus Heart Rate Present A 145 Fetus Movement Comments Patient reports worsening sy mptoms of depression anxiety. We agreed to treat with Zoloft 50 mg p.o., she was given precautions on side effects. Flowsheet Date 01/15/2023 Galvan Score Blood Edema Fundus Height Fundus Units Glucose Ketones Leukocytes Nitrite Labor Signs Protein Cervic Dilation Cervic Effacement Cervic Station Type Weight in lbs Pre/Post Dialysis Refused BP Diastolic BP Location Tested BP Systolic BP Type Fetus Heart Rate Present Fetus Movement Comments Flowsheet Date 01/15/2023 Galvan Score Blood Edema Fundus Height Fundus Units Glucose Ketones Leukocytes Nitrite Labor Signs Protein Cervic Dilation Cervic Effacement Cervic Station 18 Type Weight in lbs Pre/Post Dialysis Refused Weight 207.850610628943 BP Diastolic BP Location Tested BP Systolic BP Type 74 R arm 113 sitting Fetus Heart Rate Present A 145 Fetus Movement Comments Incomplete anatomy scan, sta ble anxiety, normal blood pressures, no complaints, no problems Flowsheet Date 02/10/2023 Galvan Score Blood Edema Fundus Height Fundus Units Glucose Ketones Leukocytes Nitrite Labor Signs Protein Cervic Dilation Cervic Effacement Cervic Station Type Weight in lbs Pre/Post Dialysis Refused BP Diastolic BP Location Tested BP Systolic BP Type Fetus Heart Rate Present Fetus Movement Comments Flowsheet Date 02/10/2023 Galvan Score Blood Edema Fundus Height Fundus Units Glucose Ketones Leukocytes Nitrite Labor Signs Protein Cervic Dilation Cervic Effacement Cervic Station Type Weight in lbs Pre/Post Dialysis Refused Weight 214.516053975136 BP Diastolic BP Location Tested BP Systolic BP Type 69 R arm 104 sitting Fetus Heart Rate Present A 145 Fetus Movement A Yes Comments Pt. reports right sided back and hip pain. NORMAL ANATOMY ULTRASOUND TODAY, STABLE MOOD CONCERNS, NO SIGNS OR SYMPTOMS OF CHOLESTASIS. Flowsheet Date 03/10/2023 Galvan Score Blood Edema Fundus Height Fundus Units Glucose Ketones Leukocytes Nitrite Labor Signs Protein Cervic Dilation Cervic Effacement Cervic Station 28 Type Weight in lbs Pre/Post Dialysis Refused Weight 218.007251886224 BP Diastolic BP Location Tested BP Systolic BP Type 66 R arm 102 sitting Fetus Heart Rate Present A 145 Fetus Movement A Yes Comments Complaints, no problems, rou albert care. Items on the problem list are stable Flowsheet Date 03/24/2023 Galvan Score Blood Edema Fundus Height Fundus Units Glucose Ketones Leukocytes Nitrite Labor Signs Protein Cervic Dilation Cervic Effacement Cervic Station Type Weight in lbs Pre/Post Dialysis Refused Weight 217.465683182972 BP Diastolic BP Location Tested BP Systolic BP Type 70 105 Fetus Heart Rate Present A 150 Fetus Movement Comments Good movement. Crampin g last night, very mild. Having some urinary urgency, will send UA and culture. Going to [place] for GCT and Rhogam. Flowsheet Date 04/10/2023 Galvan Score Blood Edema Fundus Height Fundus Units Glucose Ketones Leukocytes Nitrite Labor Signs Protein Cervic Dilation Cervic Effacement Cervic Station neg trace 32 none trace Type Weight in lbs Pre/Post Dialysis Refused Weight 216.939419715021 BP Diastolic BP Location Tested BP Systolic BP Type 75 118 Fetus Heart Rate Present A 150 Fetus Movement A Yes Comments patient is having some swell ing, nausea and vomiting worse than first trimester, plan zofran, rx to pharmacy, reviewed precautions and education f/u 2 weeks Flowsheet Date 04/24/2023 Galvan Score Blood Edema Fundus Height Fundus Units Glucose Ketones Leukocytes Nitrite Labor Signs Protein Cervic Dilation Cervic Effacement Cervic Station neg trace none trace Type Weight in lbs Pre/Post Dialysis Refused Weight 213.791026142754 BP Diastolic BP Location Tested BP Systolic BP Type 75 105 Fetus Heart Rate Present A 136 Present Fetus Movement A Yes Comments patient is having contractio ns, loose stools, nausea, vomiting, discharge, and swelling. continue imodium, hydration, call for preadmission, precautions reviewed f/u 2 weeks, bile acids wnl Flowsheet Date 05/06/2023 Galvan Score Blood Edema Fundus Height Fundus Units Glucose Ketones Leukocytes Nitrite Labor Signs Protein Cervic Dilation Cervic Effacement Cervic Station neg trace 34 none trace Type Weight in lbs Pre/Post Dialysis Refused Weight 211.586590113237 BP Diastolic BP Location Tested BP Systolic BP Type 68 91 Fetus Heart Rate Present A 145 Fetus Movement A Yes Comments patient is having some contr actions, discharge, swelling, nausea and vomiting. occ itching rpt bile acids, precautions reviewed f/u 2 weeks pending labs gbs next visit Flowsheet Date 05/20/2023 Galvan Score Blood Edema Fundus Height Fundus Units Glucose Ketones Leukocytes Nitrite Labor Signs Protein Cervic Dilation Cervic Effacement Cervic Station neg trace 35 none trace Type Weight in lbs Pre/Post Dialysis Refused Weight 211.430271849789 BP Diastolic BP Location Tested BP Systolic BP Type 74 105 Fetus Heart Rate Present A 150 Fetus Movement A Yes Comments patient is having contractio ns, discharge, swelling, nausea and vomiting. zofran refill, +FM, occ contraction, reviewed precautions and education, gbs complete f/u one week Flowsheet Date 05/27/2023 Galvan Score Blood Edema Fundus Height Fundus Units Glucose Ketones Leukocytes Nitrite Labor Signs Protein Cervic Dilation Cervic Effacement Cervic Station Type Weight in lbs Pre/Post Dialysis Refused BP Diastolic BP Location Tested BP Systolic BP Type Fetus Heart Rate Present Fetus Movement Comments Flowsheet Date 05/27/2023 Galvan Score Blood Edema Fundus Height Fundus Units Glucose Ketones Leukocytes Nitrite Labor Signs Protein Cervic Dilation Cervic Effacement Cervic Station Type Weight in lbs Pre/Post Dialysis Refused BP Diastolic BP Location Tested BP Systolic BP Type Fetus Heart Rate Present Fetus Movement Comments Flowsheet Date 05/27/2023 Galvan Score Blood Edema Fundus Height Fundus Units Glucose Ketones Leukocytes Nitrite Labor Signs Protein Cervic Dilation Cervic Effacement Cervic Station neg none none trace Type Weight in lbs Pre/Post Dialysis Refused Weight 212.41615362801 BP Diastolic BP Location Tested BP Systolic BP Type 77 111 Fetus Heart Rate Present Fetus Movement A Yes Comments patient is having contractio ns, hip pain, swelling, and nausea. discussed IOL 0500 06/10 bpp 02/17 education and precautions, declines cervical exam Flowsheet Date 06/03/2023 Galvan Score Blood Edema Fundus Height Fundus Units Glucose Ketones Leukocytes Nitrite Labor Signs Protein Cervic Dilation Cervic Effacement Cervic Station Type Weight in lbs Pre/Post Dialysis Refused BP Diastolic BP Location Tested BP Systolic BP Type Fetus Heart Rate Present Fetus Movement Comments Flowsheet Date 06/03/2023 Galvan Score Blood Edema Fundus Height Fundus Units Glucose Ketones Leukocytes Nitrite Labor Signs Protein Cervic Dilation Cervic Effacement Cervic Station Type Weight in lbs Pre/Post Dialysis Refused BP Diastolic BP Location Tested BP Systolic BP Type Fetus Heart Rate Present Fetus Movement Comments Flowsheet Date 06/03/2023 Galvan Score Blood Edema Fundus Height Fundus Units Glucose Ketones Leukocytes Nitrite Labor Signs Protein Cervic Dilation Cervic Effacement Cervic Station 1+ trace Type Weight in lbs Pre/Post Dialysis Refused Weight 215.589426529243 BP Diastolic BP Location Tested BP Systolic BP Type 78 113 Fetus Heart Rate Present Fetus Movement A Yes Comments Patient c/o nausea, discharg e, swelling of hands and feet, and ctx. doing well +FM bpp 10 has IOL next week precautions reviewed Menstrual History Last Menstrual Date Menses Monthly On Bcp Conception Prior Menses Frequency Hcg Plus Date Menarche Onset Age 0408/22/2022 Genetic Screening And Infection History Question Response Note Mental Retardation/Autism false Patient's Age Will Be 35 Years Or Older At Estim ated Date of Delivery false Thalassemia (Congolese, Romansh, Mediterranean, Or Background): MCV < 80 false Neural Tube Defect (Meningomyelocele, Spina Bifi da, Or Anencephaly) false Congenital Heart Defect false Down Syndrome false Raheel-Sachs (eg, Scientology, Cajun, Somali-Ledbetter) f alse Kenneth Disease false Sickle Cell Disease Or Trait () false Hemophilia Or Other Blood Disorders false Muscular Dystrophy false Cystic Fibrosis false [place]'s Chorea false Intellectual Disability/Autism false If Yes, Was Person Tested For Fragile X? false Other Inherited Genetic Or Chromosomal Disorder false Maternal Metabolic Disorder (eg, Type 1 Diabetes , PKU) false Patient Or Baby's Father Had A Child With Defects Not Listed Above false Recurrent Loss, Or A Stillbirth false Medications (including Suppl ements, Vitamins, Herbs, OTC Drugs), Illicit/Recreational Drugs, Alcohol false If Yes, Agent(s) And Strength/Dosage false Any Other Genetic History false Live With Someone With TB Or Exposed To TB false Patient Or Partner Has History Of Genital Herpes false Rash Or Viral Illness Since Last Menstrual Perio d false History Of STD, Gonorrhea, Chlamydia, HPV, Syphi lis false Other Infection History false History of HIV false History of Hepatitis false Prior GBS-infected child false Hemoglobinopathy Or Carrier false Other Structural Defect false Recent Travel History Outside of Country false Delivery Information Delivery Date Delivery Type Labor Anesthesia Weeks Gestation Incision Type Labor Labor Length Hrs Delivered By Post Complications Tubal Sterilization Discharge Date Comments 4 Induce d None 39.1 false Carmela Hawthorne CNM Cholestas is of ,Mixed anxiety and depressiv e disorder, Obesity,P ostpartum depressio n,Prophyl actic immunothe rapy,Seiz ure disorder Discharge Information Feeding Method Contraceptive Method Maternal HG B and HCT Levels Ob Episode Information Episode Created Date Number of Fetuses Patient Bloodtype Patient rh Status Prepregnancy Weight lbs Domestic Partner Domestic Partner Phone Father Name Professor Of Floriculture Status 07/19/19 1 CLOSED Fetus Data First Name Last Name Admitted to NICU Weight (g) Sex Living Outcome Pediatric Complications Fetus ID Race Codes Race Delivery Type , [place] [id number] Jorge Calculation Initial Jorge Date Initial Exam Date Initial Exam Provider Initial Ultrasound Date Last Menstrual Period Date Ultra Sound Weeks Gestation 0 Eighteen To Twenty Week Jorge Update Ultra Sound Date Fundal Height At Umbil Quickening Date Ultra Sound Latest Weeks Gestation Final Jorge Confirmed By Final Jorge Confirmed Date Final Jorge Date Ultra Sound Latest Days Gestation 0 0 Menstrual History Last Menstrual Date Menses Monthly On Bcp Conception Prior Menses Frequency Hcg Plus Date Menarche Onset Age Delivery Information Delivery Date Delivery Type Labor Anesthesia Weeks Gestation Incision Type Labor Labor Length Hrs Delivered By Post Complications Tubal Sterilization Discharge Date Comments 4 Discharge Information Feeding Method Contraceptive Method Maternal HG B and HCT Levels Ob Episode Information Episode Created Date Number of Fetuses Patient Bloodtype Patient rh Status Prepregnancy Weight lbs Domestic Partner Domestic Partner Phone Father Name Professor Of Floriculture Status 09/28/19 25 1 O Negative 170 Benjami n Matheni a OPEN Fetus Data First Name Last Name Admitted to NICU Weight (g) Sex Living Outcome Pediatric Complications Fetus ID Race Codes Race Delivery Type [id number] Problems Problem Notes +THC Problem Name Start Date End Date Resolution Snomed Code Not e Attention deficit hyperactivity disorder 09/27/2024 [id number] Sciatica 11/25/2024 [id number] PT referr jarrod [facility] 11/15 pt scheduled 01/02 1:15PM Headache 09/27/2024 [id number] Mixed anxiety and depressive disorder 09/27/2024 [id number] Jorge Calculation Initial Jorge Date Initial Exam Date Initial Exam Provider Initial Ultrasound Date Last Menstrual Period Date Ultra Sound Weeks Gestation 03/30/2025 08/17/2024 [email or web address] 08/03/2024 5 Eighteen To Twenty Week Jorge Update Ultra Sound Date Fundal Height At Umbil Quickening Date Ultra Sound Latest Weeks Gestation Final Jorge Confirmed By Final Jorge Confirmed Date Final Jorge Date Ultra Sound Latest Days Gestation 0 [email or web address] 11/15/2024 03/30/20 25 0 Pre- Flowsheet Flowsheet Date 09/27/2024 Galvan Score Blood Edema Fundus Height Fundus Units Glucose Ketones Leukocytes Nitrite Labor Signs Protein Cervic Dilation Cervic Effacement Cervic Station neg none Type Weight in lbs Pre/Post Dialysis Refused Weight 163.440375716298 BP Diastolic BP Location Tested BP Systolic BP Type 71 108 Fetus Heart Rate Present Fetus Movement A No Comments Patient is concerned with lo sing weight, still under lot of stress, nausea and vomiting. seeing t young and doing much better emotionally, long drawn out process with separation, custody, has a adult protective caseworker that is helping, discussed nutrition, small meals, delivered first child for suspected cholestasis, labs ended up being wnl, hx 2 vaginal deliveries, no hx gdm htn, start careeducation and precautions reviewed f/u 4 weeks Flowsheet Date 11/04/2024 Galvan Score Blood Edema Fundus Height Fundus Units Glucose Ketones Leukocytes Nitrite Labor Signs Protein Cervic Dilation Cervic Effacement Cervic Station Type Weight in lbs Pre/Post Dialysis Refused 171.944459289196 BP Diastolic BP Location Tested BP Systolic BP Type 74 109 sitting Fetus Heart Rate Present Fetus Movement A Yes Comments pain in legs back wraps to f ront worse with walking flexeril helps will try PT as wll, also vaginal itching and yellow d/c rx flagyl, seeing therapist weekly, doing well. education and precautions plan anatomy scan next week visit in 4 weeks Flowsheet Date 11/08/2024 Galvan Score Blood Edema Fundus Height Fundus Units Glucose Ketones Leukocytes Nitrite Labor Signs Protein Cervic Dilation Cervic Effacement Cervic Station Type Weight in lbs Pre/Post Dialysis Refused BP Diastolic BP Location Tested BP Systolic BP Type Fetus Heart Rate Present Fetus Movement Comments Flowsheet Date 12/01/2024 Galvan Score Blood Edema Fundus Height Fundus Units Glucose Ketones Leukocytes Nitrite Labor Signs Protein Cervic Dilation Cervic Effacement Cervic Station Type Weight in lbs Pre/Post Dialysis Refused BP Diastolic BP Location Tested BP Systolic BP Type Fetus Heart Rate Present Fetus Movement Comments Flowsheet Date 12/02/2024 Galvan Score Blood Edema Fundus Height Fundus Units Glucose Ketones Leukocytes Nitrite Labor Signs Protein Cervic Dilation Cervic Effacement Cervic Station Type Weight in lbs Pre/Post Dialysis Refused 180.160011338397 BP Diastolic BP Location Tested BP Systolic BP Type 69 L arm 104 sitting Fetus Heart Rate Present A 143 Present Fetus Movement A Yes Comments +FM, doing well, gct at next visit, bv sxs plan oral flagyl, precautions and education f/u 4 weeks Flowsheet Date 01/06/2025 Galvan Score Blood Edema Fundus Height Fundus Units Glucose Ketones Leukocytes Nitrite Labor Signs Protein Cervic Dilation Cervic Effacement Cervic Station Type Weight in lbs Pre/Post Dialysis Refused Weight 189.548743249633 BP Diastolic BP Location Tested BP Systolic BP Type 77 L arm 111 sitting Fetus Heart Rate Present Fetus Movement A Yes Comments +FM had gct drawn this am wi ll go back for rhogam, reviewed tdap, precautions and education. blood sugar dropping disc small protein filled snacks f.u 2 weeks Flowsheet Date 01/19/2025 Galvan Score Blood Edema Fundus Height Fundus Units Glucose Ketones Leukocytes Nitrite Labor Signs Protein Cervic Dilation Cervic Effacement Cervic Station 33 cm Type Weight in lbs Pre/Post Dialysis Refused Weight 191.568109856939 BP Diastolic BP Location Tested BP Systolic BP Type 68 L arm 95 sitting Fetus Heart Rate Present A 146 Present Fetus Movement A Yes Comments planning salpingectomy discu ssed perm sterilization, reviewed decreased risk ovarian ca, will plan 6 weeks pp, +FM, plan growth precautions and education f/u 2 weeks Flowsheet Date 01/31/2025 Galvan Score Blood Edema Fundus Height Fundus Units Glucose Ketones Leukocytes Nitrite Labor Signs Protein Cervic Dilation Cervic Effacement Cervic Station Type Weight in lbs Pre/Post Dialysis Refused BP Diastolic BP Location Tested BP Systolic BP Type Fetus Heart Rate Present Fetus Movement Comments Flowsheet Date 02/17/2025 Galvan Score Blood Edema Fundus Height Fundus Units Glucose Ketones Leukocytes Nitrite Labor Signs Protein Cervic Dilation Cervic Effacement Cervic Station Type Weight in lbs Pre/Post Dialysis Refused Weight 200.911707453085 BP Diastolic BP Location Tested BP Systolic BP Type 80 L arm 117 sitting Fetus Heart Rate Present Fetus Movement A Yes Comments +FM, pruritus all over but w orse on hands and feet hx cholestasis first , plan NST and labs today, f/u 2 weeks ob or sooner if labs elevated, ursadiol to pharmacy education and precautions f/u 2 weeks Flowsheet Date 02/17/2025 Galvan Score Blood Edema Fundus Height Fundus Units Glucose Ketones Leukocytes Nitrite Labor Signs Protein Cervic Dilation Cervic Effacement Cervic Station Type Weight in lbs Pre/Post Dialysis Refused BP Diastolic BP Location Tested BP Systolic BP Type Fetus Heart Rate Present Fetus Movement Comments Flowsheet Date 03/01/2025 Galvan Score Blood Edema Fundus Height Fundus Units Glucose Ketones Leukocytes Nitrite Labor Signs Protein Cervic Dilation Cervic Effacement Cervic Station Type Weight in lbs Pre/Post Dialysis Refused BP Diastolic BP Location Tested BP Systolic BP Type Fetus Heart Rate Present Fetus Movement Comments itching has worsened, will i ncrease meds, now some RUQ pain redraw labs will discuss with md today poc gbs collected, +FM nst Rdiscussed with dr. billings, rec delivery at 36 weeks per ACOG guidelines Flowsheet Date 03/01/2025 Galvan Score Blood Edema Fundus Height Fundus Units Glucose Ketones Leukocytes Nitrite Labor Signs Protein Cervic Dilation Cervic Effacement Cervic Station Type Weight in lbs Pre/Post Dialysis Refused Weight [id number] BP Diastolic BP Location Tested BP Systolic BP Type 68 L arm 92 sitting Fetus Heart Rate Present Fetus Movement A Yes Comments Menstrual History Last Menstrual Date Menses Monthly On Bcp Conception Prior Menses Frequency Hcg Plus Date Menarche Onset Age Delivery Information Delivery Date Delivery Type Labor Anesthesia Weeks Gestation Incision Type Labor Labor Length Hrs Delivered By Post Complications Tubal Sterilization Discharge Date Comments Discharge Information Feeding Method Contraceptive Method Maternal HG B and HCT Levels
--- OUTSIDE RECORDS SUMMARY | 2025-03-03 00:17 | XMS_ITS | Clinical Summary ---
Author Organization [address] Address [address] [place] [id number] Care Team Providers Care Telephone Triage Nurse Name Role Phone Duy Perkins MD Primary Care Provider [phone] Allergies No known active allergies Medications citalopram (CeleXA) 40 mg tabletIndications: Moderate episode of recurrent major depressive disorder (HCC) Take 1 tablet (40 mg total) by mouth daily 4 Active dextroamphetamine- amphetamine (AdderalL) 10 mg tabletIndications: Attention deficit hyperactivity disorder (ADHD), combined type Take 1 tablet (10 mg total) by mouth daily after lunch 30 tablet 5 Active dextroamphetamine- amphetamine XR (ADDERALL XR) 30 mg 24 hr capsule Take 1 capsule (30 mg total) by mouth every morning 30 capsule 5 Active Active Problems Problem Noted Date Diagnosed [...] expectation of being switched when you see SAFETY DEPOSIT BOXES CUSTODIAN. >>ASSESSMENT AND PLAN FOR MIXED ANXIETY AND DEPRESSIVE DISORDER WRITTEN ON 09/17/2021 7:36 AM BY CARLOS TALLEY NP Continue on current meds at this time with expectation of being switched when you see SAFETY DEPOSIT BOXES CUSTODIAN. Assessment & Plan (02/26/2024 11:55 AM CDT): [...] your phone. Examples would be headspace, calm, [id number], Personal Josué. Please work on this every [...] your phone. Examples would be headspace, calm, [id number], Personal Josué. Please work on this every [...] effectively. Assessment & Plan (06/25/2021 2:19 PM TELEGRAPH PRINTER MECHANIC): Patient reiterated no suicidal thoughts at this [...] your phone. Examples would be headspace, calm, [id number], Personal Josué. Please work on this every [...] in your mouth on an mj like Grid2Homepal Lower carb substitutions: Aldi carries a zero [...] in much longer they will become mushy [place] and/or coconut flour instead of regular flour For pizza dough, try fathead pizza dough recipe online. To get a crispy crust, bake on one side for 8-12 min, then flip over and bake on the other side for 8-12 min, then put toppings on and bake until the cheese on top of pizza melts jaylan recipe online For ice cream, try the brand Enlightened To replace coffee creamer and make it low carb, use heavy creamer with sugar free Torani sweetener For chips, try Whisps or pork rinds For yogurt, try Two Good irish yogurt Use Pinterest for recipe ideas. Type [...] in your mouth on an mj like Hostel Rocket or 1stphorm Aldi carries a zero net [...] in much longer they will become mushy [place] and/or coconut flour instead of regular flour [...] pork rinds For yogurt, try Two Good irish yogurt Use Pinterest for recipe ideas. Type in low carb... Assessment & Plan (06/25/2021 2:08 PM TELEGRAPH PRINTER MECHANIC): HPI: Condition is stable goal BMI <30 A&P: Healthy, high-protein, lower carbohydrate, lower fat lifestyle and exercise for 150min/week recommended Substitutions: Recommend tracking everything you put in your mouth on an mj like Hostel Rocket or [employer] Aldi carries a zero net carb bread [...] in much longer they will become mushy [place] and/or coconut flour instead of regular flour [...] pork rinds For yogurt, try Two Good irish yogurt Use Pinterest for recipe ideas. Type in low carb... Functional diarrhea 06/25/2021 Assessment & Plan (08/12/2021 7:34 AM CDT): Please start taking probiotic 20-50billion CFU daily termite treater helper. This will help maintain the good bacteria that is in your gut. Assessment & Plan (06/25/2021 2:31 PM TELEGRAPH PRINTER MECHANIC): Please start taking probiotic 20-50billion CFU daily termite treater helper. This will help maintain the good bacteria [...] no recent seizure activity. Last seizure about [id number]. This may make pt need to see state highway police officer/GYN. Assessment & Plan (06/25/2021 2:17 PM TELEGRAPH PRINTER MECHANIC): HPI: Condition is stable Patient does not [...] epilepticus (HCC) 06/25/2021 Last Assessment & Plan: Asse ssment: 17 y.o. female with PMH of [...] or ex-partner? No 08/20/2022 Social Connection and Isolation Panel Answer Date Recorded In a typical week, how many times do you talk on the phone with family, friends, or neighbors? Three times a week 08/20/2022 How often do you get togethe r with friends or relatives? Three times a week 08/20/2022 How often do you attend [facility] or holiness services? More than 4 times per year 08/20/2022 Do you belong to any clubs o r organizations such as sabianism groups, unions, fraternal or athletic groups, or [...] staff should administer the PHQ-9) 6 09/15/2023 [facility] - Occupational Stress Questionnaire Answer Date [...] place to sleep or slept in a usp (including now)? No 08/20/2022 PHQ-9 Answer Date Recorded PHQ-9 Total Score 20 09/15/2023 Comments Unknown Sex and Gender Information Value Date Recorded Sex Assigned at Not on file Legal Sex Female 2:29 AM TELEGRAPH PRINTER MECHANIC Gender Identity Female 09/16/2021 5:33 AM CDT [...] 8:29 AM CDT Height 157.5 cm (5' 2.01) 02/26/2024 11:41 AM C DT Body Mass Index 39.68 09/15/2023 8:29 AM CDT Plan of Treatment Health Maintenance Due Date Last Done Comments DTaP/Tdap/Td Vaccine (1 - Tdap) 2010 Varicella Vaccines (1 of 2 - 13+ 2-dose series) 2012 HPV Vaccines (3 - 3-dose series) 01/23/2021 10/31/2020, 10/31/2020, 06/28/2015, Additional history exists Cervical Cancer Screening 10/31/2021 10/31/2020 Regular Well Visit/Exam 18-64 11/03/2021 11/03/2020 Depression Screening 09/14/2024 09/15/2023, 09/15/2023, 11/14/2022, Additional history exists Covid-19 Vaccine (2 - 2024- season) 2025 07/01/2021 Influenza Vaccine (#1) 2025 Hepatitis B Screening Completed 09/15/2023 Hepatitis C [...] last revised on 2019. Testing performed by: [place] [facility], [address] [place] [address]., [address] Blood 09/15/2023 9:19 AM CDT 09/15/2023 2:07 PM CDT Duy Perkins MD LAB MICROBIOLOGY - GENERA L ORDERABLES Edited Result - Final JACK [facility] Department [place] [address] * Pap and High Risk HPV, reflex to Genotyping (10/31/2020) Thin prep 10/31/2020 Narrative Kirsten Carbajal MA - 10/31/2020 Copy of results sent to scanning to be uploaded into chart us Historical Provider LAB CYTOLOGY ORDERABLES F inal Result from Last 3 Months or Most Recently Relevant to Health Maintenance Insurance [facility] Care Teams Telephone Triage Nurse Relationship Specialty Start Date End Date Duy Perkins [place] [address] PCP - General Family Medicine 08/20/22
--- OUTSIDE RECORDS SUMMARY | 2025-03-03 00:17 | XMS_ITS | Clinical Summary ---
Author Organization [facility] Address [address], [place] [address] Phone Care Team Providers Care Wheelchair Van Driver Name Role Phone Duy Perkins MD Primary Care Provider [phone] Allergies No known active allergies Medications ondansetron [...] - 1st line. 10 Tab 0 Active sertraline (Zoloft) 100 MG Tablet Take 100 mg by mouth daily. Active buPROPion SR (Wellbutrin SR) 150 MG TABLET SR 12 HR Take 150 mg by mouth daily. 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 Seizures 08/03/2017 Encounters Date Type Department Care Team Description 02/22/2025 9:30 AM CDT [facility] [address] [place] [address] Angela Gonzalez LCPC Trauma and stressor-related disorder (Primary Dx) Discharge Disposition: Discharged to home or Selfcare 02/22/2025 Travel 02/10/2025 9:15 AM CDT Telemedicine [facility] [address] [facility] [place] [address] Angela Gonzalez, POWER SWITCHBOARD OPERATOR Trauma and stressor-related disorder (Primary Dx) Discharge Disposition: Discharged to home or Selfcare 02/10/2025 Travel 01/27/2025 9:15 AM CDT Outpatient [facility] [address] [place] [address] Angela Gonzalez, POWER SWITCHBOARD OPERATOR Trauma and stressor-related disorder (Primary Dx) Discharge Disposition: Discharged to home or Selfcare 01/27/2025 Travel 12/30/2024 11:00 AM CDT Outpatient [facility] [address] [place] [address] Angela Gonzalez, POWER SWITCHBOARD OPERATOR Trauma and stressor-related disorder (Primary Dx) Discharge Disposition: Discharged to home or Selfcare 12/30/2024 Travel 12/16/2024 11:00 AM CDT Out[facility] [address] [place] [address] Angela Gonzalez, POWER SWITCHBOARD OPERATOR Trauma and stressor-related disorder (Primary Dx) Discharge Disposition: Discharged to home or Selfcare 12/16/2024 Travel from Last 3 Months Family History Medical History Relation Name Comments Drug Abuse Father Bipolar Disorder Maternal Uncle Schizophrenia Maternal Uncle Alcohol Abuse Mother Anxiety disorder Mother Depression Mother Seizures Mother Relation Name Status Comments Brother 1 Alive Brother 2 Alive Brother 3 Alive Father Half-Sister 1 Alive Half-Sister 2 Alive Maternal Uncle Mother Social History Tobacco Use Types Packs/Day Years Used Date Smoking Tobacco: Former Cigarettes Q uit: 03/09/2018 Smokeless Tobacco: Never Tobacco Cessation:Counseling Given: Not Answered Alcohol Use Standard Drinks/Week Comments Yes 0 [...] 3:32 PM CDT Height 157.5 cm (5' 2) 12/17/2022 3:32 PM CDT Body Mass Index 28.35 12/17/2022 3:32 PM CDT Plan of Treatment Upcoming Encounters Date Type Department Care Team (Late st Contact Info) Description 03/09/2025 9:00 AM CDT Telemedicine [facility] [address] [place] [address] Angela Gonzalez, POWER SWITCHBOARD OPERATOR [address] [place] [address] Discharge Disposition: Discharged to home or Selfcare Health Maintenance Due Date Last Done Comments Pap Smear 2020 Influenza Immunization (#1) 2025 01/28/2017 SARS-COV-2 Immunization ( - season) 2025 07/01/2021 Respiratory Syncytial Virus (RSV) Immunization (Adult) (1 - 1-dose 75+ series) 2074 Hepatitis B Immunization Completed 000, 1999, 1999 DTaP/Tdap/Td Immunization Discontinued 2010, 12/25/2003, 06/17/2000, Additional history exists TdaP Immunization Completed 12/02/2010 Meningococcal B Immunization Discontinued 01/28/2017 Meningococcal Immunization (ACWY) Completed 01/28/2017, 12/02/2010 Human Papillomavirus (HPV) Immunization Completed 10/31/2020, 06/28/2015, 06/20/2011, Additional history exists Hepatitis C Virus (HCV) Screening Completed 08/17/2024, 12/03/2022 Pneumococcal Immunization Combined Aged Out No longer eligible based on patient's age to complete this topic Rotavirus Immunization Aged Out No lo nger eligible based on patient's age to complete this topic Goals Goal Patient Goal Type Associated Problems Recent Progress Patient-Stated? Author Trauma Depression Improving( 10:23 AM CDT) Angela Leo, [facility] Note: Goal/Objective: Decrease symptoms associated with trauma. Anticipated Time Frame for Goal Completion: 6 months Goal Reviewed with: patient Readiness to change: Ready to change Department associated with goal: [facility] Steps to achieve goal: will share personal trauma story in counseling/psychotherapy sessions. will learn/identify how trauma has impacted personal life, physical health and behavioral health. will identify and practice, at least two, skills/activities/routines, to gain relief from the impact of trauma. Will attend individual and/or group therapy at least 1x/month at least 6 sessions Insurance MEDICAID [place]AN[place] Care Teams Wheelchair Van Driver Relationship Specialty Start Date End Date Duy Perkins MD [address] [place] [id number] PCP - General Internal Medicine 09/26/24
[2025-03-03] MEDS: LACTATED RINGERS 1,000 ML 125 ML IV CONT ×3 (00:35→10:57)
[2025-03-03] MEDS: AMPICILLIN SODIUM 2 GM in SODIUM CHLORIDE 0.9% IV 100 ML 200 ML IVPB (00:36)
[2025-03-03 00:37] LABS: Hematocrit 33.7 % (37.0-47.0); Hemoglobin 11.5 g/dL (12.0-15.0); Immature Granulocyte Percent A 1.2 % (0-0.5); Lymphocytes Absolute Auto 3.48 K/mm3 (0.9-3.2); Mean Corpuscular HGB Conc 34.1 g/dl (32-36); Mean Corpuscular Hemoglobin 29.4 pg (26-34); Mean Corpuscular Volume 86.2 fl (80-100); Nucleated Red Blood Cells Absolute Auto 0.000 K/mm3 (0.0-0.012); Nucleated Red Blood Cells Perc 0.0 % (0.0-0.2); Platelet Count Result 212 k/mm3 (150-375); Red Blood Count 3.91 M/mm3 (4.2-5.4); White Blood Count 19.6 K/mm3 (4.5-10.0)
--- NOTE | 2025-03-03 00:39 | LDADM ---
This patient, Idania Medina, was admitted to Labor/Delivery/Recovery 106 on 03/03/25 at 00:01. Plans for labor, pain management and were discussed with patient. Patient/family oriented to hospital policies and general routines including ID bracelet, bed and alarms, visiting hours, pain management, procedures, bathroom and other care routines, personal items, smoking policy, room service/diet and guest tray routines, security routines, and visiting hours. Patient/Family are encouraged to report perceived risks to care and to ask questions if they do not understand what they are told or what they should do. See OBIX for further documentation.
[2025-03-03] MEDS: OXYTOCIN 30 UNITS/NS 500 ML 30 UNITS/500 ML BAG IV CONT (00:48)
[2025-03-03 01:10] LABS: Alanine Aminotransferase 13 U/L (6-35); Albumin Level 3.5 g/dL (3.5-5.1); Alkaline Phosphatase 185 U/L (38-126); Anion Gap 7 mmol/L (4-12); Aspartate Amino Transferase 22 U/L (14-36); Bilirubin,Total 0.5 mg/dL (0.2-1.3); Blood Urea Nitrogen 7 mg/dL (7-17); Calcium 9.0 mg/dL (8.4-10.2); Carbon Dioxide 20 mmol/L (22-30); Chloride 104 mmol/L (98-107); Estimated CRCL calculation 133 ml/min; Estimated Glomerular Filt Rate > 60; Glucose 83 mg/dL (65-110); Potassium 3.8 mmol/L (3.4-5.0); Sodium 131 mmol/L (137-145); Total Protein 7.2 g/dL (6.3-8.2)
[2025-03-03 04:37] LABS: Syphilis IgG/IgM Antibody Non-Reactive (Nonreactive)
[2025-03-03] MEDS: AMPICILLIN SODIUM 1 GM in SODIUM CHLORIDE 0.9% IV 50 ML 100 ML IVPB ×2 (04:54→08:30)
--- NOTE | 2025-03-03 05:05 | P.PNAN_ITS ---
Anes - Eval Pre Procedure Procedure: labor epidural Date/Time: 03/03/25 05:05 Surgeon: gretchen Preop Diagnosis: pain during labor Pre Op Diagnosis: IOL Patient Data Age: 25 Gender: F Height: 1.57 m Weight: 91.81 kg Last Vital Signs Temp 36.4 C 03/03/25 03:00 Pulse 101 H 03/03/25 05:05 BP 98/55 L 03/03/25 05:05 Pulse Ox 98 03/03/25 05:04 O2 Del Method Room Air 03/03/25 00:38 Allergies Allergy/AdvReac Type Severity Reaction Status Date / Time No Known Allergies Allergy Verified 03/03/25 00:44 Home Medications ?Medication ?Instructions ?Recorded ?Confirmed ?Type citalopram 10 mg tablet 10 mg 05/18/24 History Held on 03/02/25. Instructions: Patient Condition dextroamphetamine-amphetamine 10 05/18/24 History mg tablet Held on 03/02/25. Instructions: Patient Condition dextroamphetamine-amphetamine ER PO 05/18/24 History 30 mg 24hr capsule,extend release Held on 03/02/25. Instructions: Patient Condition ursodiol 03/02/25 History Laboratory Tests 03/03/25 00:32 WBC 19.6 H K/mm3 (4.5-10.0) RBC 3.91 L M/mm3 (4.2-5.4) Hgb 11.5 L g/dL (12.0-15.0) Hct 33.7 L % (37.0-47.0) MCV 86.2 fl (80-100) MCH 29.4 pg (26-34) MCHC 34.1 g/dl (32-36) RDW 13.2 % (11.5-14.5) Plt Count 212 k/mm3 (150-375) MPV 9.5 fl (7.4-10.4) Immature Gran % (Auto) 1.2 H % (0-0.5) Neut % (Auto) 75.3 H % (45.5-73.1) Lymph % (Auto) 17.7 L % (18.3-44.2) [place] % (Auto) 5.0 % (2.6-8.5) Eos % (Auto) 0.4 % (0-4.4) Baso % (Auto) 0.4 % (0.2-1.2) Lymph # (Auto) 3.48 H K/mm3 (0.9-3.2) Aurora # (Auto) 1.0 H K/mm3 (0.1-0.6) Eos # (Auto) 0.1 K/mm3 (0-0.3) Baso # (Auto) 0.1 K/mm3 (0.0-0.1) Abs Immat Gran (auto) 0.23 H K/mm3 (0.00-0.031) Absolute Neuts (auto) 14.8 H K/mm3 (1.3-6.7) Absolute Nucleated RBC 0.000 K/mm3 (0.0-0.012) Nucleated RBC % 0.0 % (0.0-0.2) Sodium 131 L mmol/L (137-145) Potassium 3.8 mmol/L (3.4-5.0) Chloride 104 mmol/L (98-107) Carbon Dioxide 20 L mmol/L (22-30) Anion Gap 7 mmol/L (4-12) BUN 7 D mg/dL (7-17) Creatinine 0.57 L mg/dL (0.7-1.0) Estim Creat Clear Calc 133 ml/min Estimated GFR > 60 (59 - ) Glucose 83 mg/dL (65-110) Calcium 9.0 mg/dL (8.4-10.2) Total Bilirubin 0.5 mg/dL (0.2-1.3) AST 22 U/L (14-36) ALT 13 U/L (6-35) Alkaline Phosphatase 185 H U/L (38-126) Total Protein 7.2 g/dL (6.3-8.2) Albumin 3.5 g/dL (3.5-5.1) Syphilis IgG/IgM Ab Non-reactive (Nonreactive) Blood Type O Negative Antibody Screen Positive Antibody Identification Passive Due to RH Imm Glob Antigen Identification TNP CAITLYN, IgG Interpret Not Performed CAITLYN, Poly Interpret Negative CAITLYN, Complement Interp Not Performed Patient hx anesthesia problems: none Family hx anesthesia problems: none Results Review: All pre-operative results and documents have been reviewed as part of the pre- operative evaluation. [facility] Past Medical History Medical History (Updated 03/03/25 @ 05:06 by Mady Armenta CRNA) IUP (intrauterine ), incidental Epilepsy Obesity Anxiety Depression Surgical History Surgical History No significant past surgical history Family History Family History Father Cerebrovascular accident Mother , Motorcycle accident Unknown family medical history Epilepsy Social History Social History Smoking status: Former smoker Tobacco type: e-cigarettes/vaping Second hand tobacco smoke exposure: No Smoking end date: 05/11/24 Alcohol intake: former Substance use: never Do You Feel Safe in your Home?: No Lack of Transportation: No Lack of Food: Never True Current Housing: I Have Housing Concerned About Future Housing: No Difficulty Paying Gas/Electric Bills: No Difficulty Paying for Meds: No Currently Unemployed: No Education: High School Diploma/GED Difficulty w/ Childcare or Family Care: No Living arrangements: with family Occupation/Education: occupation Gender identity (if verbalized by the patient): Female Sexual Orientation (if Verbalized by the Patient): Straight or Heterosexual Spiritual care concerns: No Exam Day of Procedure 03/03/25 05:05
--- NOTE | 2025-03-03 07:40 | WPDOBADMIT ---
Obstetrics - Admit Note Admission Note: record reviewed. No pertinent additions to the history and/or any subsequent changes in the physical findings that are not consistent with the expected course of the were found. Additions to the history and/or subsequent changes in the physical findings follow. Admit for IOL for cholestasis, SVE /-2 AROM clear fluid, anticipate vaginal delivery
--- NOTE | 2025-03-03 12:02 | PM.OBPRVD ---
OB - Vaginal Delivery Note Procedure Delivery date: 03/03/25 Events: Other (cholestasis) Induction method: AROM and Per Pitocin Protocol Delivery augmentation: Rupture of Membranes and Pitocin Delivery monitor: External FHT and Internal Uterine Route of delivery: Laceration Description: None Specimen: No Quantitative Blood Loss (ml): 50 Anesthesia type: Epidural Disposition: Floor Complications: None [place] Baby Date of : 03/03/25 Time of : 11:52 Gestational Age by Date: 36 Infant gender: Female presentation: vertex position: Right Occiput Anterior Placenta delivery description: Spontaneous and Expressed Cord Vessel Description: 3 Vessels
[2025-03-03] MEDS: PHENYLEPHRINE 1,000 MCG/10 ML SYRINGE 100 MCG IV PUSH (12:19)
[2025-03-03] MEDS: OXYTOCIN 30 UNITS/NS 500 ML 30 UNITS/500 ML BAG 125 UNITS IV CONT (12:35)
[2025-03-03] MEDS: ACETAMINOPHEN 325 MG TABLET 650 MG PO (16:45)
[2025-03-03] MEDS: IBUPROFEN 600 MG TABLET PO (16:45)
--- NOTE | 2025-03-03 17:15 | PC.NURSE ---
Breast pump provided due to [ in level 2 nursery]. Instructions given on cleaning, care, usage, that there should be no pain, pumping schedule for milk production, collection, and storage of human milk. Patient was assessed for correct placement, flange size, to pump for comfort and nipple stretching/stimulation for adequate milk production every 3 hours (8 times in 24 hours) 1-2 times at night. Mother has her own wearable pump and we reviewed the need to use strong suction when initiating a supply with a pump, so a hospital pump was provided.?Mother voiced understanding of the education shared along with mom/baby guide and the pump measurement, flange fit handout for additional resource information. Reported to the Primary RN.
[2025-03-06 09:26] VITALS: BP 120/67; PULSE 76; RESP 18; TEMP 36.8; O2SAT 100
--- NOTE | 2025-03-08 07:40 | PM.OBDSVD ---
DS: Admitting Diagnosis Discharge Date 03/03/25 Admitting Diagnosis IOL, cholestasis DS: Discharge Diagnosis Discharge Diagnosis (1) Vaginal delivery: Code(s): O80 - Encounter for full-term uncomplicated delivery Status: Acute OB - DS: Summary OB Procedures : None OB Procedures Intrapartum: Spontaneous Vag Delivery OB Procedures: : None Peripartum Data Laceration Description: None Time Spent with Patient Time attestation: Total time spent providing and/or coordinating discharge services: Discharge Plan Discharge Attending physician on discharge: Carmela Hawthorne Consulting providers: Carmela Hawthrone; Mady Armenta Discharging Clinician: Carmela Hawthorne Patient Disposition: Home Activity: may shower Diet: regular Wound Care Instructions: follow printed instructions Discharge Instructions: Education: Mom and Baby Guide Given to: Mother Follow-Up: Call your delivering provider's office for an appointment to be seen in: Call Thursday to be seen Mom and baby [facility] the follow-up appointment. Appointment Date/Time: March 06, 2025 at 9:00 am What to expect at your follow-up visit: Physical Assessment Call [phone] if you are unable to keep your appointment time. BREAST CARE: * Wear a snug supportive bra. * For engorgement discomfort: Breast Feeding: * Apply warm moist washcloths * Express milk as needed to relieve engorgement * Wear loose clothing Bottle Feeding: * May apply ice packs * For sore nipples: * Identify correct latch-on * Apply warm moist washcloths before and after nursing * Air dry nipples after nursing * May apply Lansinoh cream to nipples EPISIOTOMY/PERINEAL CARE: * Until bleeding stops, use your james bottle after urinating * Change your pad frequently throughout the day * You may take sitz baths several times a day (fill your bathtub with warm water and soak for 20 minutes.) Do NOT bathe in the water * No tub baths until seen by your physician - You may shower ACTIVITY: * Rest as much as possible. * Do not exercise or lift anything heavier than your baby (such as laundry or other children.) * Avoid stairs or driving as much as possible. * Do not put anything into the vagina. No douching, tampons, or sexual activity until seen by physician. NOTIFY PHYSICIAN IF YOU HAVE ANY QUESTIONS OR IF ANY OF THE FOLLOWING SYMPTOMS OCCUR: * If your episiotomy or incision becomes red, swollen, or more painful than what you have experienced in the hospital. * If your vaginal bleeding becomes foul smelling. * If your vaginal bleeding becomes more heavy than a period or if your bleeding changes from pink to bright red. However, you may pass an occasional walnut-sized clot once or twice for the first week . * If you experience a sharp, shooting pain in you calves. * If you discover a hard, reddened area on your breast or if you experience flu-like symptoms. DIET: * Eat regular, well-balanced meals. * Drink plenty of fluids daily. If , drink to thirst. Patient Instructions: Antibiotic Form Patient Language: Australian Stand Alone Forms: General Discharge Information Follow-up/Referrals: Carmela Hawthorne CNM [Certified Nurse Historian Research Assistant, CAT TENDER] Discharge Medications: Continued citalopram 10 mg tablet 10 mg ursodiol Patient Comments: Pt unsure of strength Takes daily No Action dextroamphetamine-amphetamine 10 mg tablet dextroamphetamine-amphetamine 30 mg capsule,extended release 24hr PO Date of admission: 03/03/25 00:01 Primary Care Provider: GregorioDuy Admitting Provider: Tigre Packer Attending physician on admission: Tigre Packer Condition: Stable
== END 2025-03-03 21:28 | disposition home or self-care (01) | DRG 560 ==
LOC: ANHOB2 21:01 → ANHLDR 03-06 09:53 → ANHOB2 03-06 09:53
PROVIDERS: Advanced Practice Midwife; Admitting Provider Obstetrics & Gynecology; PCP Hospitalist; Visit Provider Obstetrics & Gynecology
DX: O26.643 Intrahepatic cholestasis of pregnancy, third trimester (principal); Z37.0 Single live birth; Z3A.36 36 weeks gestation of pregnancy; O62.3 Precipitate labor
CPT/HCPCS: 36415; 80053; 85025; 86593; 86850; 86880; 86900; 86901; 86902; A9270; J0290; J2371; J2590; J2795; J7120